=== PATIENT | male | born 1985 | race American Indian/Alaskan Native ===

== ENCOUNTER 2016-08-17 12:04 | Emergency (ER) | payer OTHER ==
--- NOTE | 2016-08-17 12:39 | Emergency Department Report ---
Entered by MARCELO LOWE, acting as scribe for BENY ODOM NP. Chief Complaint: Dizziness Stated Complaint: PASSING OUT Time Seen by Provider: 08/17/16 12:27 - HPI History of Present Illness: 31 y/o male presents via EMS c/o lightheadedness that began [place]. He notes he feels like he could have a seizure any minute. Sx include seeing blue spots, pt denies any incontinence. PMH- SZ PT not currently being treated for sz - ROS Review of Systems: +lightheadedness +seeing blue spots -incontinence - Exam Vital Signs: Vital Signs 08/17/16 12:29 Temperature 97.4 F L Pulse Rate 67 Respiratory 16 Rate Blood Pressure 127/78 O2 Sat by Pulse 98 Oximetry Physical Exam: PT is alert and appropriate GCS 15 steady gait MSE screening note: Focused history and physical exam performed. Due to findings the following was ordered: labs ED Disposition for MSE Condition: Stable This documentation as recorded by the scribe,MARCELO LOWE,accurately reflects the service I personally performed and the decisions made by ILENE sigala TRACY M , TELLER MANAGER.
[2016-08-17 13:06] LABS: Urine Drugs of Abuse Note Disclamer
[2016-08-17 13:10] LABS: Basophils % (Auto) 0.3 % (0.0-1.8); Eosinophils % (Auto) 0.2 % (0.0-4.3); Hematocrit 41.5 % (35.5-45.6); Hemoglobin 13.7 gm/dl (11.8-15.2); Mean Corpuscular HGB Conc 33 % (32-34); Mean Corpuscular Hemoglobin 33 pg (28-32); Mean Corpuscular Volume 100 fl (84-94); Platelet Count 166 K/mm3 (140-440); Red Blood Count 4.17 M/mm3 (3.65-5.03); Red Cell Distribution Width 14.2 % (13.2-15.2); White Blood Count 4.4 K/mm3 (4.5-11.0)
[2016-08-17 13:17] LABS: Anion Gap 36 mmol/L; BUN/Creatinine Ratio 16.25; Blood Urea Nitrogen 13 mg/dL (9-20); Calcium 8.7 mg/dL (8.4-10.2); Carbon Dioxide 17 mmol/L (22-30); Chloride 94.4 mmol/L (98-107); Glucose 59 mg/dL (75-100); Potassium 4.4 mmol/L (3.6-5.0); Sodium 143 mmol/L (137-145)
[2016-08-17 13:19] LABS: Bacteria,Urine 1+ /HPF (Negative); Bilirubin,Urine NEG (Negative); Blood,Urine SM (Negative); Ketones,Urine 80 mg/dL (Negative); Leukocyte Esterase,Urine NEG (Negative); Mucus,Urine 2+ /HPF; Nitrite,Urine NEG (Negative)
[2016-08-17] MEDS: NACL 0.9% 1000 ML 1,000 ML IV ONE ×2 (19:07→21:45)
--- NOTE | 2016-08-17 19:10 | Emergency Department Report ---
ED Dizziness HPI - General Chief Complaint: Dizziness Stated Complaint: PASSING OUT Time Seen by Provider: 08/17/16 12:27 Source: patient Mode of arrival: Ambulatory Limitations: No Limitations - History of Present Illness MD Complaint: dizziness, lightheadedness, near syncope -: Gradual Timing: gradual onset Description: lightheadedness History of Same: Yes History of Trauma: No Severity: moderate Improves With: remaining still, rehydration Worsens With: movement, position Associated Symptoms: weakness. denies: ataxia, chest pain, confusion, cough, diaphoresis, fever/chills, loss of appetite, malaise, seizure, shortness of breath, syncope - Related Data Previous Rx's Medication Instructions Recorded Last Taken Type Multivitamin [Multi Vitamin Daily] 1 each PO DAILY #30 tablet 07/22/13 Unknown Rx HYDROcodone/ACETAMINOPHEN [[place] 1 each PO Q6HR PRN #15 tablet 10/19/13 Unknown Rx 5/325 Tablet] Prednisone [Prednisone 10 mg 10 mg PO .TAPER #1 tab.ds.pk 10/19/13 Unknown Rx (6-Day Pack, 21 Tabs)] Sulfamethoxazole/Trimethoprim 1 each PO BID #20 tablet 10/19/13 Unknown Rx [Bactrim Ds] Folic Acid [Folvite] 1 mg PO QDAY #30 tablet 08/17/16 Unknown Rx Thiamine [Vitamin B-1] 100 mg PO QDAY #30 tablet 08/17/16 Unknown Rx chlordiazePOXIDE [Librium] 25 mg PO DAILY #40 capsule 08/17/16 Unknown Rx levETIRAcetam [Keppra TAB] 500 mg PO BID #60 tablet 08/17/16 Unknown Rx Allergies Allergy/AdvReac Type Severity Reaction Status Date / Time No Known Allergies Allergy Verified 08/17/16 12:36 ED Review of Systems ROS: Stated complaint: PASSING OUT Other details as noted in HPI Constitutional: denies: chills, fever Eyes: denies: eye pain, eye discharge, vision change ENT: denies: ear pain, throat pain Respiratory: denies: cough, shortness of breath, wheezing Cardiovascular: denies: chest pain, palpitations Endocrine: no symptoms reported Gastrointestinal: denies: abdominal pain, nausea, diarrhea Genitourinary: denies: urgency, dysuria Musculoskeletal: denies: back pain, joint swelling, arthralgia Skin: denies: rash, lesions Neurological: weakness. denies: headache, paresthesias Psychiatric: denies: anxiety, depression Hematological/Lymphatic: denies: easy bleeding, easy bruising ED Past Medical Hx - Past Medical History Hx Seizures: Yes - Surgical History Additional Surgical History: LEFT 5TH DIGIT - Social History Smoking Status: Current Every Day Smoker Substance Use Type: Alcohol, Marijuana - Medications Home Medications: Home Medications Medication Instructions Recorded Confirmed Last Taken Type Multivitamin [Multi Vitamin Daily] 1 each PO DAILY #30 tablet 07/22/13 Unknown Rx HYDROcodone/ACETAMINOPHEN [[place] 1 each PO Q6HR PRN #15 tablet 10/19/13 Unknown Rx 5/325 Tablet] Prednisone [Prednisone 10 mg 10 mg PO .TAPER #1 tab.ds.pk 10/19/13 Unknown Rx (6-Day Pack, 21 Tabs)] Sulfamethoxazole/Trimethoprim 1 each PO BID #20 tablet 10/19/13 Unknown Rx [Bactrim Ds] Folic Acid [Folvite] 1 mg PO QDAY #30 tablet 08/17/16 Unknown Rx Thiamine [Vitamin B-1] 100 mg PO QDAY #30 tablet 08/17/16 Unknown Rx chlordiazePOXIDE [Librium] 25 mg PO DAILY #40 capsule 08/17/16 Unknown Rx levETIRAcetam [Keppra TAB] 500 mg PO BID #60 tablet 08/17/16 Unknown Rx ED Physical Exam - General Limitations: No Limitations General appearance: alert, in no apparent distress - Head Head exam: Present: atraumatic, normocephalic - Eye Eye exam: Present: normal appearance - ENT ENT exam: Present: mucous membranes moist - Neck Neck exam: Present: normal inspection - Respiratory Respiratory exam: Present: normal lung sounds bilaterally. Absent: respiratory distress - Cardiovascular Cardiovascular Exam: Present: regular rate, normal rhythm. Absent: systolic murmur, diastolic murmur, rubs, gallop - GI/Abdominal GI/Abdominal exam: Present: soft, normal bowel sounds - Rectal Rectal exam: Present: deferred - Extremities Exam Extremities exam: Present: normal inspection - Back Exam Back exam: Present: normal inspection - Neurological Exam Neurological exam: Present: alert, oriented X3 - Psychiatric Psychiatric exam: Present: normal affect, normal mood - Skin Skin exam: Present: warm, dry, intact, normal color. Absent: rash ED Course Vital Signs 08/17/16 12:29 Temperature 97.4 F L Pulse Rate 67 Respiratory 16 Rate Blood Pressure 127/78 O2 Sat by Pulse 98 Oximetry ED Medical Decision Making - Lab Data Result diagrams: 08/17/16 12:44 08/17/16 12:44 - EKG Data -: EKG Interpreted by Me EKG shows normal: sinus rhythm Rate: normal - EKG Data When compared to previous EKG there are: no significant change Interpretation: no acute changes - Radiology Data Radiology results: image reviewed - Medical Decision Making Patient doing well, ivf given to the patient , ekg no acute changes , cxr negative, labs consistent with mild to moderate dehydration , with some hypoglycemia and ketones in the urine. Patient is eating in the ER, will continue to observe , likely discharge Critical care attestation.: If time is entered above; I have spent that time in minutes in the direct care of this critically ill patient, excluding procedure time. ED Disposition Clinical Impression: Dizziness, Dehydration Disposition: DISCHARGED TO HOME OR SELFCARE Is pt being admited?: No Does the pt Need Aspirin: No Condition: Good Instructions: Dehydration (ED), Lightheadedness (ED), Dizziness (ED) Prescriptions: chlordiazePOXIDE [Librium] 25 mg PO DAILY #40 capsule Folic Acid [Folvite] 1 mg PO QDAY #30 tablet levETIRAcetam [Keppra TAB] 500 mg PO BID #60 tablet Thiamine [Vitamin B-1] 100 mg PO QDAY #30 tablet Referrals: PRIMARY CARE, [Primary Care Provider] - 3-5 Days
[2016-08-17 19:26] LABS: Magnesium 1.6 mg/dL (1.7-2.3)
[2016-08-18 00:57] VITALS: BP 126/80
--- NOTE | 2016-08-18 08:11 | XRay Report ---
ROUTINE CHEST, TWO VIEWS: PA and lateral views demonstrate the heart and mediastinal contour to be of normal size and shape. The lungs are clear and fully expanded and the soft tissues and bony structures are normal. IMPRESSION: Normal study.
== END 2016-08-17 23:45 | disposition home or self-care (01) ==
LOC: ED 12:04
DX: R42 Dizziness and giddiness (principal); E86.0 Dehydration; R56.9 Unspecified convulsions; F17.200 Nicotine dependence, unspecified, uncomplicated; F12.10 Cannabis abuse, uncomplicated
CPT/HCPCS: 36415; 71020; 80048; 80307; 81001; 82550; 82962; 83735; 84484; 85025; 93005; 93010; 96360; 96361; 99284; J7030

== ENCOUNTER 2016-08-30 06:12 | Emergency (ER) | payer OTHER ==
[2016-08-30] MEDS ORDERED: NACL 0.9% 1000 ML 1,000 ML IV ONE (06:24)
--- NOTE | 2016-08-30 06:58 | Emergency Department Report ---
ED Altered Mental Status HPI - General Chief Complaint: Altered Mental Status Stated Complaint: OVERDOSE Time Seen by Provider: 08/30/16 06:24 Source: EMS Mode of arrival: Stretcher Limitations: Altered Mental Status - History of Present Illness MD Complaint: altered mental status, decreased responsiveness, intoxication -: Gradual Severity: moderate Associated Symptoms: denies: chest pain, cough, diaphoresis, fever/chills, headaches, malaise, nausea/vomiting, rash, seizure, shortness of breath, foul smelling urine, difficulty walking, diarrhea Treatments Prior to Arrival: IV fluid - Related Data Previous Rx's Medication Instructions Recorded Last Taken Type Cyclobenzaprine [Flexeril 10 MG 10 mg PO TID PRN #30 tablet 08/20/16 Unknown Rx TAB] Folic Acid [Folvite] 1 mg PO QDAY #30 tablet 08/20/16 Unknown Rx Thiamine [Vitamin B-1] 100 mg PO QDAY #30 tablet 08/20/16 Unknown Rx levETIRAcetam [Keppra TAB] 500 mg PO BID #60 tablet 08/20/16 Unknown Rx oxyCODONE /ACETAMINOPHEN [Percocet 1 tab PO Q6H PRN #12 tablet 08/20/16 Unknown Rx 5/325 mg] Allergies Allergy/AdvReac Type Severity Reaction Status Date / Time No Known Allergies Allergy Verified 08/30/16 06:19 ED Review of Systems ROS: Stated complaint: OVERDOSE Other details as noted in HPI Constitutional: denies: chills, fever Eyes: denies: eye pain, eye discharge, vision change ENT: denies: ear pain, throat pain Respiratory: denies: cough, shortness of breath, wheezing Cardiovascular: denies: chest pain, palpitations Endocrine: no symptoms reported Gastrointestinal: denies: abdominal pain, nausea, diarrhea Genitourinary: denies: urgency, dysuria Musculoskeletal: denies: back pain, joint swelling, arthralgia Skin: denies: rash, lesions Neurological: denies: headache, weakness, paresthesias Psychiatric: denies: anxiety, depression Hematological/Lymphatic: denies: easy bleeding, easy bruising ED Past Medical Hx - Past Medical History Previous Medical History?: Yes Hx Congestive Heart Failure: No Hx Diabetes: No Hx Seizures: Yes Hx Asthma: No Hx COPD: No Additional medical history: alcohol abuse - Surgical History Past Surgical History?: Yes Additional Surgical History: LEFT 5TH DIGIT - Social History Smoking Status: Smoker, Current Status Unknown Substance Use Type: Alcohol - Medications Home Medications: Home Medications Medication Instructions Recorded Confirmed Last Taken Type Cyclobenzaprine [Flexeril 10 MG 10 mg PO TID PRN #30 tablet 08/20/16 08/30/16 Unknown Rx TAB] Folic Acid [Folvite] 1 mg PO QDAY #30 tablet 08/20/16 08/30/16 Unknown Rx Thiamine [Vitamin B-1] 100 mg PO QDAY #30 tablet 08/20/16 08/30/16 Unknown Rx levETIRAcetam [Keppra TAB] 500 mg PO BID #60 tablet 08/20/16 08/30/16 Unknown Rx oxyCODONE /ACETAMINOPHEN [Percocet 1 tab PO Q6H PRN #12 tablet 08/20/16 Unknown Rx 5/325 mg] ED Physical Exam - General Limitations: Altered Mental Status General appearance: appears intoxicated, lethargic, obtunded - Head Head exam: Present: atraumatic, normocephalic - Eye Eye exam: Present: normal appearance, PERRL - ENT ENT exam: Present: normal exam - Neck Neck exam: Present: normal inspection, tenderness - Respiratory Respiratory exam: Present: normal lung sounds bilaterally - GI/Abdominal GI/Abdominal exam: Present: soft. Absent: distended, tenderness, guarding, rebound - Skin Skin exam: Present: warm ED Course Vital Signs 08/30/16 08/30/16 08/30/16 06:24 07:03 07:16 Temperature 97.4 F L Pulse Rate 94 H 95 H Respiratory 18 16 20 Rate Blood Pressure Blood Pressure 112/81 [Left] O2 Sat by Pulse 99 94 99 Oximetry 08/30/16 08/30/16 08/30/16 07:31 08:00 08:31 Temperature Pulse Rate 93 H 87 89 Respiratory 14 14 12 Rate Blood Pressure 112/81 Blood Pressure [Left] O2 Sat by Pulse Oximetry 08/30/16 08/30/16 09:01 09:31 Temperature Pulse Rate 91 H Respiratory 13 Rate Blood Pressure 130/94 130/94 Blood Pressure [Left] O2 Sat by Pulse 99 97 Oximetry - Lab Data Result diagrams: 08/30/16 06:29 08/30/16 06:29 Lab Results 08/30/16 08/30/16 08/30/16 Range/Units 06:29 06:29 07:20 WBC 3.5 L (4.5-11.0) K/mm3 RBC 3.31 L (3.65-5.03) M/mm3 Hgb 10.9 L (11.8-15.2) gm/dl Hct 32.4 L (35.5-45.6) % MCV 98 H (84-94) fl MCH 33 H (28-32) pg MCHC 34 (32-34) % RDW 14.0 (13.2-15.2) % Plt Count 309 (140-440) K/mm3 Add Manual Diff Complete Total Counted 100 Seg Neutrophils % [employer] Operator Seg Neuts % (Manual) 40.0 (40.0-70.0) % Band Neutrophils % 0 % Lymphocytes % (Manual) 51.0 H (13.4-35.0) % Reactive Lymphs % (Man) 0 % Monocytes % (Manual) 9.0 H (0.0-7.3) % Eosinophils % (Manual) 0 (0.0-4.3) % Basophils % (Manual) 0 (0.0-1.8) % Metamyelocytes % 0 % Myelocytes % 0 % Promyelocytes % 0 % Blast Cells % 0 % Nucleated RBC % Not Reportable Seg Neutrophils # Man 1.4 L (1.8-7.7) K/mm3 Band Neutrophils # 0.0 K/mm3 Lymphocytes # (Manual) 1.8 (1.2-5.4) K/mm3 Abs React Lymphs (Man) 0.0 K/mm3 Monocytes # (Manual) 0.3 (0.0-0.8) K/mm3 Eosinophils # (Manual) 0.0 (0.0-0.4) K/mm3 Basophils # (Manual) 0.0 (0.0-0.1) K/mm3 Metamyelocytes # 0.0 K/mm3 Myelocytes # 0.0 K/mm3 Promyelocytes # 0.0 K/mm3 Blast Cells # 0.0 K/mm3 WBC Morphology Not Reportable Hypersegmented Neuts Not Reportable Hyposegmented Neuts Not Reportable Hypogranular Neuts Not Reportable Smudge Cells Not Reportable Toxic Granulation Not Reportable Toxic Vacuolation Not Reportable Dohle Bodies Not Reportable Pelger-Huet Anomaly Not Reportable Rhys Rods Not Reportable Platelet Estimate Appears normal Clumped Platelets Not Reportable Plt Clumps, EDTA Not Reportable Large Platelets Not Reportable Giant Platelets Not Reportable Platelet Satelliting Not Reportable Plt Morphology Comment Not Reportable RBC Morphology Normal Dimorphic RBCs Not Reportable Polychromasia Not Reportable Hypochromasia Not Reportable Poikilocytosis Not Reportable Anisocytosis Not Reportable Microcytosis Not Reportable Macrocytosis Not Reportable Spherocytes Not Reportable Pappenheimer Bodies Not Reportable Sickle Cells Not Reportable Target Cells Not Reportable Tear Drop Cells Not Reportable Ovalocytes Not Reportable Helmet Cells Not Reportable [place] Bodies Not Reportable [place] Rings Not Reportable Evita Cells Not Reportable Bite Cells Not Reportable Crenated Cell Not Reportable Elliptocytes Not Reportable Acanthocytes (Spur) Not Reportable Rouleaux Not Reportable Hemoglobin C Crystals Not Reportable Schistocytes Not Reportable Malaria parasites Not Reportable Abad Bodies Not Reportable Hem Pathologist Commnt No Sodium 144 (137-145) mmol/L Potassium 3.8 (3.6-5.0) mmol/L Chloride 101.3 (98-107) mmol/L Carbon Dioxide 28 (22-30) mmol/L Anion Gap 19 mmol/L BUN 11 (9-20) mg/dL Creatinine 0.7 L (0.8-1.5) mg/dL Estimated GFR > 60 ml/min BUN/Creatinine Ratio 15.71 % Glucose 85 (75-100) mg/dL POC Glucose 76 (70-105) Lactic Acid (0.7-2.0) mmol/L Calcium 8.3 L (8.4-10.2) mg/dL Total Bilirubin 0.60 (0.1-1.2) mg/dL AST 30 (5-40) units/L ALT 28 (7-56) units/L Alkaline Phosphatase 57 (35-129) units/L Total Protein 6.3 (6.3-8.2) g/dL Albumin 3.9 (3.9-5) g/dL Albumin/Globulin Ratio 1.6 % Salicylates (2.8-20.0) mg/dL Acetaminophen (10.0-30.0) ug/mL Plasma/Serum Alcohol (0-0.07) gm% 0508/30/16 08/30/16 Range/Units 09:45 09:45 09:45 WBC (4.5-11.0) K/mm3 RBC (3.65-5.03) M/mm3 Hgb (11.8-15.2) gm/dl Hct (35.5-45.6) % MCV (84-94) fl MCH (28-32) pg MCHC (32-34) % RDW (13.2-15.2) % Plt Count (140-440) K/mm3 Add Manual Diff Total Counted Seg Neutrophils % Seg Neuts % (Manual) (40.0-70.0) % Band Neutrophils % % Lymphocytes % (Manual) (13.4-35.0) % Reactive Lymphs % (Man) % Monocytes % (Manual) (0.0-7.3) % Eosinophils % (Manual) (0.0-4.3) % Basophils % (Manual) (0.0-1.8) % Metamyelocytes % % Myelocytes % % Promyelocytes % % Blast Cells % % Nucleated RBC % Seg Neutrophils # Man (1.8-7.7) K/mm3 Band Neutrophils # K/mm3 Lymphocytes # (Manual) (1.2-5.4) K/mm3 Abs React Lymphs (Man) K/mm3 Monocytes # (Manual) (0.0-0.8) K/mm3 Eosinophils # (Manual) (0.0-0.4) K/mm3 Basophils # (Manual) (0.0-0.1) K/mm3 Metamyelocytes # K/mm3 Myelocytes # K/mm3 Promyelocytes # K/mm3 Blast Cells # K/mm3 WBC Morphology Hypersegmented Neuts Hyposegmented Neuts Hypogranular Neuts Smudge Cells Toxic Granulation Toxic Vacuolation Dohle Bodies Pelger-Huet Anomaly Rhys Rods Platelet Estimate Clumped Platelets Plt Clumps, EDTA Large Platelets Giant Platelets Platelet Satelliting Plt Morphology Comment RBC Morphology Dimorphic RBCs Polychromasia Hypochromasia Poikilocytosis Anisocytosis Microcytosis Macrocytosis Spherocytes Pappenheimer Bodies Sickle Cells Target Cells Tear Drop Cells Ovalocytes Helmet Cells [place] Bodies [place] Rings Evita Cells Bite Cells Crenated Cell Elliptocytes Acanthocytes (Spur) Rouleaux Hemoglobin C Crystals Schistocytes Malaria parasites Abad Bodies Hem Pathologist Commnt Sodium (137-145) mmol/L Potassium (3.6-5.0) mmol/L Chloride (98-107) mmol/L Carbon Dioxide (22-30) mmol/L Anion Gap mmol/L BUN (9-20) mg/dL Creatinine (0.8-1.5) mg/dL Estimated GFR ml/min BUN/Creatinine Ratio % Glucose (75-100) mg/dL POC Glucose (70-105) Lactic Acid 1.90 (0.7-2.0) mmol/L Calcium (8.4-10.2) mg/dL Total Bilirubin (0.1-1.2) mg/dL AST (5-40) units/L ALT (7-56) units/L Alkaline Phosphatase (35-129) units/L Total Protein (6.3-8.2) g/dL Albumin (3.9-5) g/dL Albumin/Globulin Ratio % Salicylates < 0.3 L (2.8-20.0) mg/dL Acetaminophen < 15.0 (10.0-30.0) ug/mL Plasma/Serum Alcohol (0-0.07) gm% 08/30/16 Range/Units 09:45 WBC (4.5-11.0) K/mm3 RBC (3.65-5.03) M/mm3 Hgb (11.8-15.2) gm/dl Hct (35.5-45.6) % MCV (84-94) fl MCH (28-32) pg MCHC (32-34) % RDW (13.2-15.2) % Plt Count (140-440) K/mm3 Add Manual Diff Total Counted Seg Neutrophils % Seg Neuts % (Manual) (40.0-70.0) % Band Neutrophils % % Lymphocytes % (Manual) (13.4-35.0) % Reactive Lymphs % (Man) % Monocytes % (Manual) (0.0-7.3) % Eosinophils % (Manual) (0.0-4.3) % Basophils % (Manual) (0.0-1.8) % Metamyelocytes % % Myelocytes % % Promyelocytes % % Blast Cells % % Nucleated RBC % Seg Neutrophils # Man (1.8-7.7) K/mm3 Band Neutrophils # K/mm3 Lymphocytes # (Manual) (1.2-5.4) K/mm3 Abs React Lymphs (Man) K/mm3 Monocytes # (Manual) (0.0-0.8) K/mm3 Eosinophils # (Manual) (0.0-0.4) K/mm3 Basophils # (Manual) (0.0-0.1) K/mm3 Metamyelocytes # K/mm3 Myelocytes # K/mm3 Promyelocytes # K/mm3 Blast Cells # K/mm3 WBC Morphology Hypersegmented Neuts Hyposegmented Neuts Hypogranular Neuts Smudge Cells Toxic Granulation Toxic Vacuolation Dohle Bodies Pelger-Huet Anomaly Rhys Rods Platelet Estimate Clumped Platelets Plt Clumps, EDTA Large Platelets Giant Platelets Platelet Satelliting Plt Morphology Comment RBC Morphology Dimorphic RBCs Polychromasia Hypochromasia Poikilocytosis Anisocytosis Microcytosis Macrocytosis Spherocytes Pappenheimer Bodies Sickle Cells Target Cells Tear Drop Cells Ovalocytes Helmet Cells [place] Bodies [place] Rings [place] Cells Bite Cells Crenated Cell Elliptocytes Acanthocytes (Spur) Rouleaux Hemoglobin C Crystals Schistocytes Malaria parasites Abad Bodies Hem Pathologist Commnt Sodium (137-145) mmol/L Potassium (3.6-5.0) mmol/L Chloride (98-107) mmol/L Carbon Dioxide (22-30) mmol/L Anion Gap mmol/L BUN (9-20) mg/dL Creatinine (0.8-1.5) mg/dL Estimated GFR ml/min BUN/Creatinine Ratio % Glucose (75-100) mg/dL POC Glucose (70-105) Lactic Acid (0.7-2.0) mmol/L Calcium (8.4-10.2) mg/dL Total Bilirubin (0.1-1.2) mg/dL AST (5-40) units/L ALT (7-56) units/L Alkaline Phosphatase (35-129) units/L Total Protein (6.3-8.2) g/dL Albumin (3.9-5) g/dL Albumin/Globulin Ratio % Salicylates (2.8-20.0) mg/dL Acetaminophen (10.0-30.0) ug/mL Plasma/Serum Alcohol 0.23 H (0-0.07) gm% Critical care attestation.: If time is entered above; I have spent that time in minutes in the direct care of this critically ill patient, excluding procedure time. ED Disposition Disposition: DISCHARGED TO HOME OR SELFCARE Is pt being admited?: No Does the pt Need Aspirin: No Condition: Good Instructions: Alcohol Intoxication (ED), Abuse of Alcohol (ED) Referrals: PRIMARY CARE, [Primary Care Provider] - 3-5 Days Time of Disposition: 15:33
[2016-08-30 07:13] LABS: Hematocrit 32.4 % (35.5-45.6); Hemoglobin 10.9 gm/dl (11.8-15.2); Mean Corpuscular HGB Conc 34 % (32-34); Mean Corpuscular Hemoglobin 33 pg (28-32); Mean Corpuscular Volume 98 fl (84-94); Platelet Count 309 K/mm3 (140-440); Red Blood Count 3.31 M/mm3 (3.65-5.03); White Blood Count 3.5 K/mm3 (4.5-11.0)
[2016-08-30 07:24] LABS: Alanine Aminotransferase 28 units/L (7-56); Albumin 3.9 g/dL (3.9-5); Albumin/Globulin Ratio 1.6 %; Alkaline Phosphatase 57 units/L (35-129); Anion Gap 19 mmol/L; BUN/Creatinine Ratio 15.71; Blood Urea Nitrogen 11 mg/dL (9-20); Calcium 8.3 mg/dL (8.4-10.2); Carbon Dioxide 28 mmol/L (22-30); Chloride 101.3 mmol/L (98-107); Glucose 85 mg/dL (75-100); Potassium 3.8 mmol/L (3.6-5.0); Sodium 144 mmol/L (137-145); Total Protein 6.3 g/dL (6.3-8.2)
--- NOTE | 2016-08-30 07:41 | Cat Scan Report ---
FINAL REPORT EXAM: CT HEAD/BRAIN WO CON HISTORY: Altered Mental Status TECHNIQUE: CT of the head was performed. No intravenous contrast was administered. PRIORS: 08/18/2016 FINDINGS: There is no evidence of intracranial hemorrhage. There is no edema, mass effect or midline shift. There are no abnormal extra-axial fluid collections. The ventricles are appropriate for brain volume. There is no skull fracture seen. The visualized aspects of the sinuses are clear. Tiny density in the left parietal scalp is unchanged. This may be a foreign body or may be a calcification. IMPRESSION: There is no acute intracranial abnormality identified.
[2016-08-30 09:32] LABS: Basophils % (Manual) 0 % (0.0-1.8); Blastocytes % (Manual) 0 %; Diff Status Complete; Eosinophils % (Manual) 0 % (0.0-4.3); RBC Morphology Normal
--- NOTE | 2016-08-30 14:41 | Admit Criteria Form ---
Admission Criteria Documentation: DRUG INGESTION OR OVERDOSE Clinical Indications for Admission to Inpatient Care ( Place 'X' for any and all applicable criteria): Admission is indicated for severe toxicity as indicated by ANY ONE of the following(1)(2)(3)(4)(5)(6): [ X]I. Inpatient admission required rather than observation care (Also use Drug Ingestion or Overdose: Observation Care guideline as appropriate) because of ANY ONE of the following: [X ]a) Altered mental status that is severe or persistent [ ]b) Clinical finding (eg, metabolic acidosis, hypoglycemia, bradycardia) that is severe or persistent [ ]c) Toxic drug level that is persistent [ ]d) Psychiatric risk status not acceptable for outpatient management [ ]e) Continuous intravenous infusion of anticoagulation, platelet inhibitor, vasoactive, or antiarrhythmic medication (15)(16) [ ]f) Other condition, treatment or monitoring requiring inpatient admission [ ]II. Respiratory abnormalities [ ]III. Specific finding indicating severe and likely prolonged drug toxicity [ ]IV. Hemodynamic instability [ ]V. Dangerous arrhythmia [ ]. Hypertension requiring inpatient treatment Extended stay beyond goal length of stay may be needed for (4): [ ]a) Neurologic or respiratory compromise [ ]b) Hemodynamic instability [ ]c) Persistent toxic drug levels (25) [ ]d) Severe drug toxicities or complications [ ]e) Ongoing antidote treatment (eg, acetaminophen overdose)(5) [ ]f) Older patients(65 years or older) The original [facility] content created by [employer] has been revised. The portions of the content which have been revised are identified through the use of italic text or in bold, and [facility] has neither reviewed nor approved the modified material. All other unmodified content is copyright [facility] [employer]. Please see references footnoted in the original [facility] [employer] edition 2016 Admission Criteria Met: Yes
[2016-08-30 17:07] VITALS: BP 124/68
== END 2016-08-30 19:05 | disposition home or self-care (01) ==
LOC: ED 06:12
DX: R41.82 Altered mental status, unspecified (principal)
CPT/HCPCS: 36415; 70450; 80053; 82140; 82962; 85007; 85025; 93005; 93010; 96360; 96361; 99285; G0480; J7030; 80320

== ENCOUNTER 2016-09-21 01:24 | Inpatient (IN) | payer OTHER ==
--- NOTE | 2016-09-21 09:33 | Emergency Department Report ---
ED General Adult HPI - General Chief complaint: Alcohol Stated complaint: ETOH/POSS SEIZURE Time Seen by Provider: 09/21/16 09:32 Source: EMS Mode of arrival: Ambulatory Limitations: No Limitations - History of Present Illness Initial comments: According to the EMS report, the patient was frankly intoxicated likely secondary to alcohol. He had lead down in a ditch because he "wanted to sleep" . He made mention of a seizure to the director of investigations. However EMS did not know the presence of a post ictal state. The patient was transported to this facility for further evaluation. He is awake and appears to be frankly intoxicated. However, he does understand the context of his visit and asked oriented. He states that he has fallen several times recently onto his knee. He complains of some discomfort in the same knee which is the left knee as well as the right elbow from this fall into a ditch last night. He denies any neck pain or head injury. The patient's mother presents to the emergency department. Apparently she is a middleware architect. She is aware of the patient's history of alcohol abuse. Apparently he was here on August 30 of the current year under similar circumstances and released. She requests a psychiatric evaluation because she believes the patient has a "dual diagnosis". I certainly think that is not unlikely and a reasonable request. She also states that the patient has made some comments about taking an overdose of his Keppra. However he denied suicidality or taking an overdose on my interview. He is not currently taking any psychiatric medication. He has previously been to [facility] but was not admitted with out a "$3000 deposit" per his mother. I advised mother that we will have to obtain the patient's permission to specifically discuss his medical/psychiatric findings. He stated that she had to go to the school and requested that we call her back when we are done evaluating him. -: During the night Location: left (knee), right (elbow) Radiation: non-radiation Severity scale (0 -10): 7 Quality: aching Consistency: intermittent Improves with: none Worsens with: none Associated Symptoms: denies other symptoms Treatments Prior to Arrival: none - Related Data Previous Rx's Medication Instructions Recorded Last Taken Type Cyclobenzaprine [Flexeril 10 MG 10 mg PO TID PRN #30 tablet 08/20/16 Unknown Rx TAB] Folic Acid [Folvite] 1 mg PO QDAY #30 tablet 08/20/16 Unknown Rx Thiamine [Vitamin B-1] 100 mg PO QDAY #30 tablet 08/20/16 Unknown Rx levETIRAcetam [Keppra TAB] 500 mg PO BID #60 tablet 08/20/16 Unknown Rx oxyCODONE /ACETAMINOPHEN [Percocet 1 tab PO Q6H PRN #12 tablet 08/20/16 Unknown Rx 5/325 mg] Allergies Allergy/AdvReac Type Severity Reaction Status Date / Time No Known Allergies Allergy Verified 08/30/16 06:19 ED Review of Systems ROS: Stated complaint: ETOH/POSS SEIZURE Other details as noted in HPI Constitutional: denies: chills, fever Eyes: denies: eye pain, eye discharge, vision change ENT: denies: ear pain, throat pain Respiratory: denies: cough, shortness of breath, wheezing Cardiovascular: denies: chest pain, palpitations Endocrine: no symptoms reported Gastrointestinal: denies: abdominal pain, nausea, diarrhea Genitourinary: denies: urgency, dysuria Musculoskeletal: as per HPI, other. denies: back pain, joint swelling, arthralgia Skin: denies: rash, lesions Neurological: denies: headache, weakness, paresthesias Psychiatric: denies: anxiety, depression Hematological/Lymphatic: denies: easy bleeding, easy bruising ED Past Medical Hx - Past Medical History Hx Congestive Heart Failure: No Hx Diabetes: No Hx Seizures: Yes Hx Asthma: No Hx COPD: No Additional medical history: alcohol abuse - Surgical History Additional Surgical History: LEFT 5TH DIGIT - Social History Smoking Status: Current Every Day Smoker Substance Use Type: Alcohol - Medications Home Medications: Home Medications Medication Instructions Recorded Confirmed Last Taken Type Cyclobenzaprine [Flexeril 10 MG 10 mg PO TID PRN #30 tablet 08/20/16 08/30/16 Unknown Rx TAB] Folic Acid [Folvite] 1 mg PO QDAY #30 tablet 08/20/16 08/30/16 Unknown Rx Thiamine [Vitamin B-1] 100 mg PO QDAY #30 tablet 08/20/16 08/30/16 Unknown Rx levETIRAcetam [Keppra TAB] 500 mg PO BID #60 tablet 08/20/16 08/30/16 Unknown Rx oxyCODONE /ACETAMINOPHEN [Percocet 1 tab PO Q6H PRN #12 tablet 08/20/16 Unknown Rx 5/325 mg] ED Physical Exam - General Limitations: Other (strong odor of alcohol and behavior consistent with intoxication) General appearance: in no apparent distress, lethargic - Head Head exam: Present: atraumatic, normocephalic - Eye Eye exam: Present: normal appearance, PERRL, EOMI. Absent: scleral icterus - ENT ENT exam: Present: mucous membranes moist. Absent: normal exam - Neck Neck exam: Present: normal inspection. Absent: tenderness, meningismus - Respiratory Respiratory exam: Present: normal lung sounds bilaterally. Absent: respiratory distress - Cardiovascular Cardiovascular Exam: Present: regular rate, normal rhythm. Absent: systolic murmur, diastolic murmur, rubs, gallop - GI/Abdominal GI/Abdominal exam: Present: soft, normal bowel sounds. Absent: distended, tenderness, guarding, rebound, rigid - Rectal Rectal exam: Present: deferred - Extremities Exam Extremities exam: Present: normal inspection, other (abrasion right elbow and left knee. Old injuries of the left knee as well.) - Back Exam Back exam: Present: normal inspection, full ROM. Absent: CVA tenderness (R), CVA tenderness (L), muscle spasm, paraspinal tenderness, vertebral tenderness - Neurological Exam Neurological exam: Present: oriented X3, CN II-XII intact, other (patient was noted to ambulate without difficulty. I encouraged him back into his guerney). Absent: motor sensory deficit - Psychiatric Psychiatric exam: Present: normal affect, normal mood - Skin Skin exam: Present: warm, dry, intact, normal color. Absent: rash ED Course Vital Signs 09/21/16 09/21/16 09/21/16 01:33 07:18 09:32 Temperature 98.5 F 98 F 97.8 F Pulse Rate 100 H 100 H 62 Respiratory 18 18 16 Rate Blood Pressure 143/98 Blood Pressure 141/97 [Left] Blood Pressure 160/98 [Right] O2 Sat by Pulse 97 98 100 Oximetry 09/21/16 09/21/16 11:46 13:30 Temperature 97.7 F Pulse Rate 60 76 Respiratory 16 16 Rate Blood Pressure Blood Pressure 139/90 129/96 [Left] Blood Pressure [Right] O2 Sat by Pulse 100 100 Oximetry - Reevaluation(s) Reevaluation #1: Stressed with mental health counselor. Discussed with patient. He is still quite intoxicated. His alcohol level was quite high and certainly will be for some time. He was hypernatremic and ketotic with an increased anion gap. He did have a syncopal episode. I think he has recent enough to be admitted medically. He states he will cooperate with a detox program. 09/21/16 14:54 Reevaluation #2: I'm going to complete the patient's medical database with a chest x-ray EKG and CT the head. Dr. Mccarty will be notified of the pending tests and agreed to admit to the hospitalist service. 09/21/16 15:00 Reevaluation #3: Discussed with Dr. Mccarty 09/21/16 15:07 ED Medical Decision Making - Lab Data Result diagrams: 09/21/16 09:45 09/21/16 09:45 Laboratory Results - last 24 hr 09/21/16 09/21/16 09/21/16 09:45 09:45 09:45 WBC 6.8 RBC 4.06 Hgb 13.1 Hct 40.2 MCV 99 H MCH 32 MCHC 33 RDW 13.8 Plt Count 223 Lymph % (Auto) 44.5 H Bucks % (Auto) 5.3 Eos % (Auto) 0.6 Baso % (Auto) 0.2 Lymph # 3.0 Bucks # 0.4 Eos # 0.0 Baso # 0.0 Seg Neutrophils % 49.4 Seg Neutrophils # 3.4 PT 13.0 INR 0.99 APTT 29.5 Sodium 147 H Carbon Dioxide 26 BUN 10 Creatinine 0.5 L Estimated GFR > 60 BUN/Creatinine Ratio 20.00 Glucose 99 Calcium 8.0 L Magnesium 2.00 Total Bilirubin Direct Bilirubin Indirect Bilirubin AST ALT Alkaline Phosphatase Total Protein Albumin Albumin/Globulin Ratio 09/21/16 09:45 WBC RBC Hgb Hct MCV MCH MCHC RDW Plt Count Lymph % (Auto) Bucks % (Auto) Eos % (Auto) Baso % (Auto) Lymph # Bucks # Eos # Baso # Seg Neutrophils % Seg Neutrophils # PT INR APTT Sodium Carbon Dioxide BUN Creatinine Estimated GFR BUN/Creatinine Ratio Glucose Calcium Magnesium Total Bilirubin 0.50 Direct Bilirubin < 0.2 Indirect Bilirubin 0.3 AST 28 ALT 18 Alkaline Phosphatase 65 Total Protein 6.9 Albumin 4.3 Albumin/Globulin Ratio 1.7 K KNA 147 K 3.8 CL 105.1 AG 20 Laboratory Results - last 24 hr 09/21/16 09/21/16 09/21/16 09:45 09:45 09:45 WBC 6.8 RBC 4.06 Hgb 13.1 Hct 40.2 MCV 99 H MCH 32 MCHC 33 RDW 13.8 Plt Count 223 Lymph % (Auto) 44.5 H [place] % (Auto) 5.3 Eos % (Auto) 0.6 Baso % (Auto) 0.2 Lymph # 3.0 Bucks # 0.4 Eos # 0.0 Baso # 0.0 Seg Neutrophils % 49.4 Seg Neutrophils # 3.4 PT 13.0 INR 0.99 APTT 29.5 Sodium 147 H Carbon Dioxide 26 BUN 10 Creatinine 0.5 L Estimated GFR > 60 BUN/Creatinine Ratio 20.00 Glucose 99 Calcium 8.0 L Magnesium 2.00 Total Bilirubin Direct Bilirubin Indirect Bilirubin AST ALT Alkaline Phosphatase Total Protein Albumin Albumin/Globulin Ratio Urine Color Urine Turbidity Urine pH Ur Specific [place] Urine Protein Urine Glucose (UA) Urine Ketones Urine Blood Urine Nitrite Urine Bilirubin Urine Urobilinogen Ur Leukocyte Esterase Urine WBC (Auto) Urine RBC (Auto) U Epithel Cells (Auto) Urine Mucus 09/21/16 09/21/16 09:45 11:54 WBC RBC Hgb Hct MCV MCH MCHC RDW Plt Count Lymph % (Auto) [place] % (Auto) Eos % (Auto) Baso % (Auto) Lymph # Bucks # Eos # Baso # Seg Neutrophils % Seg Neutrophils # PT INR APTT Sodium Carbon Dioxide BUN Creatinine Estimated GFR BUN/Creatinine Ratio Glucose Calcium Magnesium Total Bilirubin 0.50 Direct Bilirubin < 0.2 Indirect Bilirubin 0.3 AST 28 ALT 18 Alkaline Phosphatase 65 Total Protein 6.9 Albumin 4.3 Albumin/Globulin Ratio 1.7 Urine Color Straw Urine Turbidity Clear Urine pH 6.0 Ur Specific [place] 1.010 Urine Protein <15 mg/dl Urine Glucose (UA) Neg Urine Ketones Neg Urine Blood Neg Urine Nitrite Neg Urine Bilirubin Neg Urine Urobilinogen < 2.0 Ur Leukocyte Esterase Neg Urine WBC (Auto) 1.0 Urine RBC (Auto) 2.0 U Epithel Cells (Auto) < 1.0 Urine Mucus Few - Radiology Data Radiology results: report reviewed Critical care attestation.: If time is entered above; I have spent that time in minutes in the direct care of this critically ill patient, excluding procedure time. ED Disposition Clinical Impression: Alcoholic ketoacidosis, Hypernatremia, Syncope and collapse Alcohol intoxication Qualifiers: Complication of substance-induced condition: uncomplicated Qualified Code(s): F10.920 - Alcohol use, unspecified with intoxication, uncomplicated Disposition: OP ADMITTED IP TO THIS HOSP Is pt being admited?: Yes Does the pt Need Aspirin: No Condition: Stable Instructions: Syncope (ED) Referrals: PRIMARY CARE,MD [Primary Care Provider] - 3-5 Days
[2016-09-21 10:06] LABS: Basophils % (Auto) 0.2 % (0.0-1.8); Eosinophils % (Auto) 0.6 % (0.0-4.3); Hematocrit 40.2 % (35.5-45.6); Hemoglobin 13.1 gm/dl (11.8-15.2); Mean Corpuscular HGB Conc 33 % (32-34); Mean Corpuscular Hemoglobin 32 pg (28-32); Mean Corpuscular Volume 99 fl (84-94); Platelet Count 223 K/mm3 (140-440); Red Blood Count 4.06 M/mm3 (3.65-5.03); Red Cell Distribution Width 13.8 % (13.2-15.2); White Blood Count 6.8 K/mm3 (4.5-11.0)
[2016-09-21 10:17] LABS: Anion Gap 20 mmol/L; Blood Urea Nitrogen 10 mg/dL (9-20); Carbon Dioxide 26 mmol/L (22-30); Chloride 105.1 mmol/L (98-107); Glucose 99 mg/dL (75-100); Potassium 3.8 mmol/L (3.6-5.0); Sodium 147 mmol/L (137-145)
[2016-09-21 10:23] LABS: INR 0.99 (0.87-1.13)
[2016-09-21 10:24] LABS: Partial Thromboplastin Time 29.5 Sec. (24.2-36.6)
[2016-09-21 10:26] LABS: Alanine Aminotransferase 18 units/L (7-56); Albumin 4.3 g/dL (3.9-5); Albumin/Globulin Ratio 1.7 %; Alkaline Phosphatase 65 units/L (35-129); Total Protein 6.9 g/dL (6.3-8.2)
[2016-09-21 10:28] LABS: Bilirubin,Direct < 0.2 mg/dL (0-0.2); Bilirubin,Indirect 0.3 mg/dL
[2016-09-21 11:57] LABS: Urine Drugs of Abuse Note Disclamer
[2016-09-21] MEDS ORDERED: VITAMIN B-1 100 MG, FOLVITE 1 MG, INFUVITE 10 ML in NACL 0.9% 1000 ML 1,000 ML IV ONE (12:11)
[2016-09-21 12:12] LABS: Bilirubin,Urine NEG (Negative); Blood,Urine NEG (Negative); Ketones,Urine NEG (Negative); Leukocyte Esterase,Urine NEG (Negative); Mucus,Urine FEW /HPF; Nitrite,Urine NEG (Negative); Protein,Urine <15 mg/dL mg/dL (Negative); Urobilinogen,Urine < 2.0 mg/dL (<2.0)
--- NOTE | 2016-09-21 13:19 | XRay Report ---
LEFT KNEE, 2 views: History: Left knee pain. The bony architecture is intact without evidence of fracture or dislocation. No significant soft tissue abnormality is seen. IMPRESSION: Normal left knee.
--- NOTE | 2016-09-21 13:25 | XRay Report ---
Right elbow 2 views: History: Fall, pain. Findings: No evidence of joint effusion. Articular surfaces appears unremarkable. There appears to be large bony density posterior superior aspect of the olecranon process of ulna. This may be an old fracture of the ulna or ossification secondary to old injury. Impression: Findings as detailed above. Clinical correlation advised.
[2016-09-21] MEDS ORDERED: PROTONIX IV ONE (14:58)
--- NOTE | 2016-09-21 15:49 | Cat Scan Report ---
CT scan of head without contrast: History: AMS. Findings: Ventricles are normal in size and midline in location. Focal area of low attenuation measuring 4 mm in diameter left basal ganglia suggestive of chronic lacunar infarct. No acute ischemia, hemorrhage or mass. No extra-axial fluid collection. Normal brainstem and cerebellum. Normal sinuses and mastoid cells. Impression: No acute intracranial abnormality.
[2016-09-21] MEDS ORDERED: HALDOL IV PRN (17:19)
[2016-09-21] MEDS: HABITROL TD SCH (17:55)
[2016-09-21] MEDS: TYLENOL PO PRN (17:55)
--- NOTE | 2016-09-21 18:16 | History and Physical Report ---
History of Present Illness Date of examination: 09/21/16 Date of admission: 09/21/16 15:24 Chief complaint: Alcohol withdrawal History of present illness: Patient came in to Ed for ETOH intoxication. Patient calm, alert and oriented to person,place and time at present time. patient reported that he drinks a gallon of liquor every other day. his last drink was last night (09/20/2016). He stated that has fallen multiple times recently onto his knee. Patient reported also left knee and right elbow pain post fall into ditch yesterday. the abrupt onset of left keen and elbow pain, which he described as dull and aching in character. the character pain just localized at left knee and right elbow. The pain is relatively constant throughout the day, but does vary in severity He stated that his pain get worst with moving. Patient stated that he had an episode of seizure, but he does not know for how long the seizure lasted. Patient denies head injury, neck pain or headache at present time. Patient is motivated to stop drinking alcohol. Past History Past Medical History: seizures, other (Alcohol withdrwal) Past Surgical History: No surgical history Social history: alcohol abuse Family history: CAD, hypertension Medications and Allergies Allergies Allergy/AdvReac Type Severity Reaction Status Date / Time No Known Allergies Allergy Verified 08/30/16 06:19 Home Medications Medication Instructions Recorded Confirmed Last Taken Type Folic Acid [Folvite] 1 mg PO QDAY #30 tablet 08/20/16 09/21/16 09/21/16 Rx Thiamine [Vitamin B-1] 100 mg PO QDAY #30 tablet 08/20/16 09/21/16 09/21/16 Rx levETIRAcetam [Keppra TAB] 500 mg PO BID #60 tablet 08/20/16 09/21/16 09/21/16 Rx Active Meds: Active Medications Acetaminophen (Tylenol) 650 mg PO Q6H PRN PRN Reason: Pain, Mild (1-3) Last Admin: 09/21/16 17:55 Dose: 650 mg Chlordiazepoxide HCl (Librium) 50 mg PO Q1H PRN PRN Reason: CIWA-Ar 8-15 Enoxaparin Sodium (Lovenox) 40 mg SUB-Q QDAY@2200 COLBY Haloperidol Lactate (Haldol) 5 mg IV Q1H PRN PRN Reason: Unrespon. to mult. doses BZD's Thiamine HCl 100 mg/ Folic Acid 1 mg/ Multivitamins/Minerals 10 ml/ Sodium Chloride 1,011.2 mls @ 250 mls/hr IV ONCE ONE Stop: 09/21/16 21:23 Lorazepam (Ativan) 2 mg PO Q1H PRN PRN Reason: CIWA-Ar 8-15 Nicotine (Habitrol) 21 mg TD Q24H COLBY Last Admin: 09/21/16 17:55 Dose: 21 mg Review of Systems Constitutional: no weight loss, no weight gain, no fever, no chills, no sweats, no night sweats, no malaise Ears, nose, mouth and throat: no ear pain, no tinnitis, no nose pain, no nasal congestion, no nasal discharge Cardiovascular: no chest pain, no palpitations, no rapid/irregular heart beat, no syncope, no lightheadedness Respiratory: no cough, no cough with sputum, no excessive sputum Gastrointestinal: no abdominal pain, no nausea, no vomiting, no diarrhea Genitourinary Male: no dysuria, no hematuria, no flank pain, no discharge, no urinary frequency, no urinary hesitancy Musculoskeletal: other (left knee and right elbow) Integumentary: no rash, no sores Neurological: seizures, no head injury, no paralysis, no weakness, no parathesias, no tingling Psychiatric: no anxiety, no memory loss, no change in sleep habits Endocrine: no cold intolerance, no heat intolerance, no polyphagia, no excessive thirst Hematologic/Lymphatic: no easy bruising, no easy bleeding Allergic/Immunologic: no urticaria, no allergic rhinitis Exam - Constitutional Vitals: Temp Pulse Resp BP Pulse Ox 97.8 F 79 16 138/91 100 09/21/16 15:39 09/21/16 15:39 09/21/16 15:39 09/21/16 15:39 09/21/16 15:39 General appearance: Present: no acute distress, well-nourished - EENT Eyes: Present: PERRL ENT: hearing intact, clear oral mucosa - Neck Neck: Present: supple, normal ROM - Respiratory Respiratory effort: normal - Cardiovascular Heart Sounds: Present: S1 & S2. Absent: rub, click - Extremities Extremities: pulses symmetrical, No edema - Abdominal General gastrointestinal: Absent: soft, non-tender Male genitourinary: Present: deferred - Rectal Rectal Exam: deferred - Integumentary Integumentary: Present: clear, warm, dry - Musculoskeletal Musculoskeletal: strength equal bilaterally - Psychiatric Psychiatric: appropriate mood/affect - Neurologic Neurologic: CNII-XII intact, moves all extremities Results - Labs CBC & Chem 7: 09/21/16 09:45 09/21/16 09:45 Labs: Laboratory Last Values WBC 6.8 K/mm3 (4.5-11.0) 09/21/16 09:45 RBC 4.06 M/mm3 (3.65-5.03) 09/21/16 09:45 Hgb 13.1 gm/dl (11.8-15.2) 09/21/16 09:45 Hct 40.2 % (35.5-45.6) 09/21/16 09:45 MCV 99 fl (84-94) H 09/21/16 09:45 MCH 32 pg (28-32) 09/21/16 09:45 MCHC 33 % (32-34) 09/21/16 09:45 RDW 13.8 % (13.2-15.2) 09/21/16 09:45 Plt Count 223 K/mm3 (140-440) 09/21/16 09:45 Lymph % (Auto) 44.5 % (13.4-35.0) H 09/21/16 09:45 Stevens % (Auto) 5.3 % (0.0-7.3) 09/21/16 09:45 Eos % (Auto) 0.6 % (0.0-4.3) 09/21/16 09:45 Baso % (Auto) 0.2 % (0.0-1.8) 09/21/16 09:45 Lymph # 3.0 K/mm3 (1.2-5.4) 09/21/16 09:45 Stevens # 0.4 K/mm3 (0.0-0.8) 09/21/16 09:45 Eos # 0.0 K/mm3 (0.0-0.4) 09/21/16 09:45 Baso # 0.0 K/mm3 (0.0-0.1) 09/21/16 09:45 Seg Neutrophils % 49.4 % (40.0-70.0) 09/21/16 09:45 Seg Neutrophils # 3.4 K/mm3 (1.8-7.7) 09/21/16 09:45 PT 13.0 Sec. (12.2-14.9) 09/21/16 09:45 INR 0.99 (0.87-1.13) 09/21/16 09:45 APTT 29.5 Sec. (24.2-36.6) 09/21/16 09:45 Sodium 147 mmol/L (137-145) H 09/21/16 09:45 Carbon Dioxide 26 mmol/L (22-30) 09/21/16 09:45 BUN 10 mg/dL (9-20) 09/21/16 09:45 Creatinine 0.5 mg/dL (0.8-1.5) L 09/21/16 09:45 Estimated GFR > 60 ml/min 09/21/16 09:45 BUN/Creatinine Ratio 20.00 % 09/21/16 09:45 Glucose 99 mg/dL (75-100) 09/21/16 09:45 Calcium 8.0 mg/dL (8.4-10.2) L 09/21/16 09:45 Magnesium 2.00 mg/dL (1.7-2.3) 09/21/16 09:45 Total Bilirubin 0.50 mg/dL (0.1-1.2) 09/21/16 09:45 Direct Bilirubin < 0.2 mg/dL (0-0.2) 09/21/16 09:45 Indirect Bilirubin 0.3 mg/dL 09/21/16 09:45 AST 28 units/L (5-40) 09/21/16 09:45 ALT 18 units/L (7-56) 09/21/16 09:45 Alkaline Phosphatase 65 units/L (35-129) 09/21/16 09:45 Total Protein 6.9 g/dL (6.3-8.2) 09/21/16 09:45 Albumin 4.3 g/dL (3.9-5) 09/21/16 09:45 Albumin/Globulin Ratio 1.7 % 09/21/16 09:45 Urine Color Straw (Yellow) 09/21/16 11:54 Urine Turbidity Clear (Clear) 09/21/16 11:54 Urine pH 6.0 (5.0-7.0) 09/21/16 11:54 Ur Specific [place] 1.010 (1.003-1.030) 09/21/16 11:54 Urine Protein <15 mg/dl mg/dL (Negative) 09/21/16 11:54 Urine Glucose (UA) Neg mg/dL (Negative) 09/21/16 11:54 Urine Ketones Neg mg/dL (Negative) 09/21/16 11:54 Urine Blood Neg (Negative) 09/21/16 11:54 Urine Nitrite Neg (Negative) 09/21/16 11:54 Urine Bilirubin Neg (Negative) 09/21/16 11:54 Urine Urobilinogen < 2.0 mg/dL (<2.0) 09/21/16 11:54 Ur Leukocyte Esterase Neg (Negative) 09/21/16 11:54 Urine WBC (Auto) 1.0 /HPF (0.0-6.0) 09/21/16 11:54 Urine RBC (Auto) 2.0 /HPF (0.0-6.0) 09/21/16 11:54 U Epithel Cells (Auto) < 1.0 /HPF (0-13.0) 09/21/16 11:54 Urine Mucus Few /HPF 09/21/16 11:54 Urine Opiates Screen Presumptive negative 09/21/16 11:54 Urine Methadone Screen Presumptive negative 09/21/16 11:54 Ur Barbiturates Screen Presumptive negative 09/21/16 11:54 Ur Phencyclidine Scrn Presumptive negative 09/21/16 11:54 Ur Amphetamines Screen Presumptive negative 09/21/16 11:54 U Benzodiazepines Scrn Presumptive positive 09/21/16 11:54 Urine Cocaine Screen Presumptive negative 09/21/16 11:54 U Marijuana (THC) Screen Presumptive negative 09/21/16 11:54 Drugs of Abuse Note Disclamer 09/21/16 11:54 Plasma/Serum Alcohol 0.45 gm% (0-0.07) H 09/21/16 09:45 Assessment and Plan Assessment and plan: ASSESSMENT/PLAN 1. Alcohol Intoxication Alcohol level was 0.45 in the ED will put him on CIWA protocol On banana bag Alcohol counseling given 2. Left Knee and right elbow pain Knee and elbow X-ray unremarkable pain controlled with Flexerile and Tylenol 3. Seizure CT of the head, no acute intracranial abnormality Restart his keppra Hypernatremia: - Will give him fluid DVT prophylaxis Lovenox Disposition - admit to med surg floor Advance Directives: Yes (Full code) VTE prophylaxis?: Chemical Plan of care discussed with patient/family: Yes
[2016-09-21 19:30] LABS: Alanine Aminotransferase 17 units/L (7-56); Albumin 3.8 g/dL (3.9-5); Albumin/Globulin Ratio 1.5 %; Alkaline Phosphatase 70 units/L (35-129); Total Protein 6.3 g/dL (6.3-8.2)
[2016-09-21 19:32] LABS: Bilirubin,Direct < 0.2 mg/dL (0-0.2); Bilirubin,Indirect 0.2 mg/dL
[2016-09-21] MEDS: ATIVAN PO PRN (21:49)
[2016-09-21] MEDS: LOVENOX SUB-Q SCH (21:52)
[2016-09-21] MEDS: KEPPRA PO SCH (22:14)
[2016-09-21] MEDS: FLEXERIL PO PRN (22:45)
[2016-09-22] MEDS: TYLENOL PO PRN (05:39)
[2016-09-22] MEDS: ATIVAN PO PRN ×2 (05:41→22:36)
--- NOTE | 2016-09-22 07:42 | XRay Report ---
AP CHEST: HISTORY: Hypertension AP view of the chest demonstrates a normal mediastinal and cardiac contour with clear lungs and normal bony and soft tissue structures. IMPRESSION: Unremarkable AP chest. No significant change since 08/17/16.
--- NOTE | 2016-09-22 08:25 | Admit Criteria Form ---
Admission Criteria Documentation: ALCOHOL AND PSYCHOACTIVE SUBSTANCE WITHDRAWAL Clinical Indications for Inpatient Care (Place ' X' for any and all applicable criteria): Ongoing inpatient care may be indicated for substance withdrawal[B][C] with ANY ONE of the following(1)(2)(3)(4)(21): [ ]I. Delirium due to alcohol or sedative[D] withdrawal is present. [ ]II. Marked signs of withdrawal are present as indicated by ANY ONE of the following(15)(22)(23) [ ]a) Heart rate greater than 120 beats per minute is present. [ ]b) Severe vomiting is present (eg, precludes maintenance of oral hydration). [ ]c) Grossly visible tremor is present. [ ]d) Profuse perspiration is present. [ ]e) Temperature greater than 101 degrees F (38.3 degrees C) is present. [ ]f) Other signs of severe withdrawal are present (eg, Altered mental status ) [ ]g) Severe withdrawal identified by standardized assessment score[A] [ ]III. Signs of withdrawal that require continued inpatient treatment as indicated by ANY ONE of the following(15)(22)(23): [ ]a) Inadequate response to pharmacotherapy (eg, benzodiazepines) [ ]b) Outpatient or lower level of care is not feasible or appropriate (eg, unavailable or inappropriate to patient condition or treatment history). [ ]IV. Withdrawal signs with high-risk indicator are present as manifested by ALL of the following[A](15)(22)(23) [ ]a) Signs of withdrawal are present as indicated by ANY ONE of the following: [ ]i. Tachycardia is present. [ ]ii. Nausea or vomiting is present. [ ]iii. Tremor is present. [ ]iv. Increased perspiration is present. [ ]v. Other signs of withdrawal are present. [ ]vi. Withdrawal identified by standardized assessment score [A] [ ]b) Elevated risk due to historical or comorbid factor is present as indicated by ANY ONE of the following: [ ]i. History of delirium due to withdrawal is present. [ ]ii. History of seizures due to withdrawal is present.[E] [ ]iii. Intrinsic seizure disorder (epilepsy) is present. [ ]iv. Patient is . [ ]v. Other significant medical history (eg, severe cardiac disease) is present, which is assessed to be at risk for destabilization due to withdrawal. [ ]V. Serious electrolyte abnormalities (eg, hyponatremia, hypokalemia, hypophosphatemia) requiring correction performable only in inpatient setting(6)(25) [ ]. Severe hypoglycemia requiring glucose infusions performable only in inpatient setting(6) [X]VII. Drug toxicity or instability, such as Altered mental status, respiratory depression, or arrhythmias, that requires inpatient care [ ]VIII. Danger judged unmanageable at lower level of care because of ANY ONE of the following [ ]a) Danger to self [ ]b) Danger to others [ ]c) Grave disability (eg, inability to perform self-care necessary at lower level of care) The original [facility] Care Guidelines content created by [facility] Care Guidelines has been revised. The portions of the content which have been revised are identified through the use of italic text or in bold. [facility] Guidelines has neither reviewed nor approved the modified material. All other unmodified content is copyright [facility] Care Guidelines. Please see references footnoted in the original [facility] CareGuidelines edition 2016 Admission Criteria Met: Yes
[2016-09-22] MEDS: FLEXERIL PO PRN ×2 (08:58→18:51)
[2016-09-22] MEDS: LIBRIUM PO PRN ×2 (08:58→11:45)
[2016-09-22 09:22] LABS: Anion Gap 16 mmol/L; Blood Urea Nitrogen 10 mg/dL (9-20); Calcium 7.8 mg/dL (8.4-10.2); Carbon Dioxide 28 mmol/L (22-30); Chloride 105.7 mmol/L (98-107); Glucose 84 mg/dL (75-100); Sodium 146 mmol/L (137-145)
[2016-09-22] MEDS: KEPPRA PO SCH ×2 (10:15→22:36)
--- NOTE | 2016-09-22 10:35 | Progress Note ---
Assessment and Plan Assessment and plan: Breakthrough seizures in seizure disorder. Admitted. Neurochecks. seizure precautions. Keppra resumed Alcohol abuse and dependence. Psych consulted. Alcohol intoxication. CIWA protocol DVT prophylaxis. LOvenox Full code History Interval history: Seizures, alcohol abuse Hospitalist Physical - Physical exam Narrative exam: Appearance: Not in acute distress, HEENT: normocephalic, atraumatic Neck : supple, no JVD Lungs: Clear to auscultation bilaterally, no crackles or wheeze Heart : S1 and S2 regular, no murmurs, rubs or gallop Abdomen: soft, non-tender, non-distended, normal bowel sounds Extremities: No edema, no clubbing, no cyanosis, ulcer right elbow Neuro: Awake, alert, oriented 3, moves all ext, Psych: normal mood - Constitutional Vitals: Temp Pulse Resp BP Pulse Ox 98.2 F 110 H 18 137/87 98 09/22/16 08:00 09/22/16 08:00 09/22/16 08:00 09/22/16 08:00 09/22/16 08:00 General appearance: Present: no acute distress, well-nourished Results - Labs CBC & Chem 7: 09/21/16 09:45 09/22/16 08:39 Labs: Laboratory Last Values WBC 6.8 K/mm3 (4.5-11.0) 09/21/16 09:45 RBC 4.06 M/mm3 (3.65-5.03) 09/21/16 09:45 Hgb 13.1 gm/dl (11.8-15.2) 09/21/16 09:45 Hct 40.2 % (35.5-45.6) 09/21/16 09:45 MCV 99 fl (84-94) H 09/21/16 09:45 MCH 32 pg (28-32) 09/21/16 09:45 MCHC 33 % (32-34) 09/21/16 09:45 RDW 13.8 % (13.2-15.2) 09/21/16 09:45 Plt Count 223 K/mm3 (140-440) 09/21/16 09:45 Lymph % (Auto) 44.5 % (13.4-35.0) H 09/21/16 09:45 [place] % (Auto) 5.3 % (0.0-7.3) 09/21/16 09:45 Eos % (Auto) 0.6 % (0.0-4.3) 09/21/16 09:45 Baso % (Auto) 0.2 % (0.0-1.8) 09/21/16 09:45 Lymph # 3.0 K/mm3 (1.2-5.4) 09/21/16 09:45 [place] # 0.4 K/mm3 (0.0-0.8) 09/21/16 09:45 Eos # 0.0 K/mm3 (0.0-0.4) 09/21/16 09:45 Baso # 0.0 K/mm3 (0.0-0.1) 09/21/16 09:45 Seg Neutrophils % 49.4 % (40.0-70.0) 09/21/16 09:45 Seg Neutrophils # 3.4 K/mm3 (1.8-7.7) 09/21/16 09:45 PT 13.0 Sec. (12.2-14.9) 09/21/16 09:45 INR 0.99 (0.87-1.13) 09/21/16 09:45 APTT 29.5 Sec. (24.2-36.6) 09/21/16 09:45 Sodium 146 mmol/L (137-145) H 09/22/16 08:39 Potassium 4.0 mmol/L (3.6-5.0) 09/22/16 08:39 Chloride 105.7 mmol/L (98-107) 09/22/16 08:39 Carbon Dioxide 28 mmol/L (22-30) 09/22/16 08:39 Anion Gap 16 mmol/L 09/22/16 08:39 BUN 10 mg/dL (9-20) 09/22/16 08:39 Creatinine 0.5 mg/dL (0.8-1.5) L 09/22/16 08:39 Estimated GFR > 60 ml/min 09/22/16 08:39 BUN/Creatinine Ratio 20.00 % 09/22/16 08:39 Glucose 84 mg/dL (75-100) 09/22/16 08:39 Calcium 7.8 mg/dL (8.4-10.2) L 09/22/16 08:39 Phosphorus 3.30 mg/dL (2.5-4.5) 09/22/16 08:39 Magnesium 2.00 mg/dL (1.7-2.3) 09/21/16 09:45 Total Bilirubin 0.40 mg/dL (0.1-1.2) 09/21/16 18:25 Direct Bilirubin < 0.2 mg/dL (0-0.2) 09/21/16 18:25 Indirect Bilirubin 0.2 mg/dL 09/21/16 18:25 AST 29 units/L (5-40) 09/21/16 18:25 ALT 17 units/L (7-56) 09/21/16 18:25 Alkaline Phosphatase 70 units/L (35-129) 09/21/16 18:25 Total Protein 6.3 g/dL (6.3-8.2) 09/21/16 18:25 Albumin 3.8 g/dL (3.9-5) L 09/21/16 18:25 Albumin/Globulin Ratio 1.5 % 09/21/16 18:25 Urine Color Straw (Yellow) 09/21/16 11:54 Urine Turbidity Clear (Clear) 09/21/16 11:54 Urine pH 6.0 (5.0-7.0) 09/21/16 11:54 Ur Specific [place] 1.010 (1.003-1.030) 09/21/16 11:54 Urine Protein <15 mg/dl mg/dL (Negative) 09/21/16 11:54 Urine Glucose (UA) Neg mg/dL (Negative) 09/21/16 11:54 Urine Ketones Neg mg/dL (Negative) 09/21/16 11:54 Urine Blood Neg (Negative) 09/21/16 11:54 Urine Nitrite Neg (Negative) 09/21/16 11:54 Urine Bilirubin Neg (Negative) 09/21/16 11:54 Urine Urobilinogen < 2.0 mg/dL (<2.0) 09/21/16 11:54 Ur Leukocyte Esterase Neg (Negative) 09/21/16 11:54 Urine WBC (Auto) 1.0 /HPF (0.0-6.0) 09/21/16 11:54 Urine RBC (Auto) 2.0 /HPF (0.0-6.0) 09/21/16 11:54 U Epithel Cells (Auto) < 1.0 /HPF (0-13.0) 09/21/16 11:54 Urine Mucus Few /HPF 09/21/16 11:54 Urine Opiates Screen Presumptive negative 09/21/16 11:54 Urine Methadone Screen Presumptive negative 09/21/16 11:54 Ur Barbiturates Screen Presumptive negative 09/21/16 11:54 Ur Phencyclidine Scrn Presumptive negative 09/21/16 11:54 Ur Amphetamines Screen Presumptive negative 09/21/16 11:54 U Benzodiazepines Scrn Presumptive positive 09/21/16 11:54 Urine Cocaine Screen Presumptive negative 09/21/16 11:54 U Marijuana (THC) Screen Presumptive negative 09/21/16 11:54 Drugs of Abuse Note Disclamer 09/21/16 11:54 Plasma/Serum Alcohol 0.45 gm% (0-0.07) H 09/21/16 09:45
[2016-09-22] MEDS: NORCO 5/325 PO PRN ×2 (11:45→17:53)
[2016-09-22] MEDS ORDERED: VITAMIN B-1 100 MG, FOLVITE 1 MG, INFUVITE 10 ML in NACL 0.9% 1000 ML 1,000 ML IV ONE (14:00)
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
[2016-09-22] MEDS: HABITROL TD SCH (17:54)
[2016-09-22] MEDS: RisperDAL PO SCH (22:36)
[2016-09-22] MEDS: LOVENOX SUB-Q SCH (22:36)
[2016-09-23] MEDS: NORCO 5/325 PO PRN ×4 (03:59→23:31)
[2016-09-23] MEDS: LIBRIUM PO PRN ×2 (07:52→18:01)
[2016-09-23] MEDS: FLEXERIL PO PRN ×3 (07:56→23:32)
[2016-09-23] MEDS: KEPPRA PO SCH ×2 (09:50→21:24)
--- NOTE | 2016-09-23 13:39 | Progress Note ---
Assessment and Plan Assessment and plan: Breakthrough seizures in seizure disorder. Admitted. Neurochecks. seizure precautions. Continue Keppra. Alcohol abuse and dependence. Psych following Alcohol intoxication. [facility] protocol Suicidal. Patient is on suicide watch with 1:1 sitter. For transfer to inpatient Psych when stable. DVT prophylaxis. Lovenox Full code History Interval history: Seizures, alcohol abuse suicidal Hospitalist Physical - Physical exam Narrative exam: Appearance: Not in acute distress, HEENT: normocephalic, atraumatic Neck : supple, no JVD Lungs: Clear to auscultation bilaterally, no crackles or wheeze Heart : S1 and S2 regular, no murmurs, rubs or gallop Abdomen: soft, non-tender, non-distended, normal bowel sounds Extremities: No edema, no clubbing, no cyanosis, ulcer right elbow Neuro: Awake, alert, oriented 3, moves all ext, Psych: depressed,suicidal - Constitutional Vitals: Temp Pulse Resp BP Pulse Ox 98.9 F 98 H 18 170/105 98 09/23/16 12:05 09/23/16 12:05 09/23/16 12:05 09/23/16 12:05 09/23/16 12:05 General appearance: Present: no acute distress, well-nourished Results - Labs CBC & Chem 7: 09/21/16 09:45 09/22/16 08:39 Labs: Laboratory Last Values WBC 6.8 K/mm3 (4.5-11.0) 09/21/16 09:45 RBC 4.06 M/mm3 (3.65-5.03) 09/21/16 09:45 Hgb 13.1 gm/dl (11.8-15.2) 09/21/16 09:45 Hct 40.2 % (35.5-45.6) 09/21/16 09:45 MCV 99 fl (84-94) H 09/21/16 09:45 MCH 32 pg (28-32) 09/21/16 09:45 MCHC 33 % (32-34) 09/21/16 09:45 RDW 13.8 % (13.2-15.2) 09/21/16 09:45 Plt Count 223 K/mm3 (140-440) 09/21/16 09:45 Lymph % (Auto) 44.5 % (13.4-35.0) H 09/21/16 09:45 [place] % (Auto) 5.3 % (0.0-7.3) 09/21/16 09:45 Eos % (Auto) 0.6 % (0.0-4.3) 09/21/16 09:45 Baso % (Auto) 0.2 % (0.0-1.8) 09/21/16 09:45 Lymph # 3.0 K/mm3 (1.2-5.4) 09/21/16 09:45 [place] # 0.4 K/mm3 (0.0-0.8) 09/21/16 09:45 Eos # 0.0 K/mm3 (0.0-0.4) 09/21/16 09:45 Baso # 0.0 K/mm3 (0.0-0.1) 09/21/16 09:45 Seg Neutrophils % 49.4 % (40.0-70.0) 09/21/16 09:45 Seg Neutrophils # 3.4 K/mm3 (1.8-7.7) 09/21/16 09:45 PT 13.0 Sec. (12.2-14.9) 09/21/16 09:45 INR 0.99 (0.87-1.13) 09/21/16 09:45 APTT 29.5 Sec. (24.2-36.6) 09/21/16 09:45 Sodium 146 mmol/L (137-145) H 09/22/16 08:39 Potassium 4.0 mmol/L (3.6-5.0) 09/22/16 08:39 Chloride 105.7 mmol/L (98-107) 09/22/16 08:39 Carbon Dioxide 28 mmol/L (22-30) 09/22/16 08:39 Anion Gap 16 mmol/L 09/22/16 08:39 BUN 10 mg/dL (9-20) 09/22/16 08:39 Creatinine 0.5 mg/dL (0.8-1.5) L 09/22/16 08:39 Estimated GFR > 60 ml/min 09/22/16 08:39 BUN/Creatinine Ratio 20.00 % 09/22/16 08:39 Glucose 84 mg/dL (75-100) 09/22/16 08:39 Calcium 7.8 mg/dL (8.4-10.2) L 09/22/16 08:39 Phosphorus 3.30 mg/dL (2.5-4.5) 09/22/16 08:39 Magnesium 2.00 mg/dL (1.7-2.3) 09/21/16 09:45 Total Bilirubin 0.40 mg/dL (0.1-1.2) 09/21/16 18:25 Direct Bilirubin < 0.2 mg/dL (0-0.2) 09/21/16 18:25 Indirect Bilirubin 0.2 mg/dL 09/21/16 18:25 AST 29 units/L (5-40) 09/21/16 18:25 ALT 17 units/L (7-56) 09/21/16 18:25 Alkaline Phosphatase 70 units/L (35-129) 09/21/16 18:25 Total Protein 6.3 g/dL (6.3-8.2) 09/21/16 18:25 Albumin 3.8 g/dL (3.9-5) L 09/21/16 18:25 Albumin/Globulin Ratio 1.5 % 09/21/16 18:25 Urine Color Straw (Yellow) 09/21/16 11:54 Urine Turbidity Clear (Clear) 09/21/16 11:54 Urine pH 6.0 (5.0-7.0) 09/21/16 11:54 Ur Specific [place] 1.010 (1.003-1.030) 09/21/16 11:54 Urine Protein <15 mg/dl mg/dL (Negative) 09/21/16 11:54 Urine Glucose (UA) Neg mg/dL (Negative) 09/21/16 11:54 Urine Ketones Neg mg/dL (Negative) 09/21/16 11:54 Urine Blood Neg (Negative) 09/21/16 11:54 Urine Nitrite Neg (Negative) 09/21/16 11:54 Urine Bilirubin Neg (Negative) 09/21/16 11:54 Urine Urobilinogen < 2.0 mg/dL (<2.0) 09/21/16 11:54 Ur Leukocyte Esterase Neg (Negative) 09/21/16 11:54 Urine WBC (Auto) 1.0 /HPF (0.0-6.0) 09/21/16 11:54 Urine RBC (Auto) 2.0 /HPF (0.0-6.0) 09/21/16 11:54 U Epithel Cells (Auto) < 1.0 /HPF (0-13.0) 09/21/16 11:54 Urine Mucus Few /HPF 09/21/16 11:54 Urine Opiates Screen Presumptive negative 09/21/16 11:54 Urine Methadone Screen Presumptive negative 09/21/16 11:54 Ur Barbiturates Screen Presumptive negative 09/21/16 11:54 Ur Phencyclidine Scrn Presumptive negative 09/21/16 11:54 Ur Amphetamines Screen Presumptive negative 09/21/16 11:54 U Benzodiazepines Scrn Presumptive positive 09/21/16 11:54 Urine Cocaine Screen Presumptive negative 09/21/16 11:54 U Marijuana (THC) Screen Presumptive negative 09/21/16 11:54 Drugs of Abuse Note Disclamer 09/21/16 11:54 Plasma/Serum Alcohol 0.45 gm% (0-0.07) H 09/21/16 09:45
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
[2016-09-23] MEDS: HABITROL TD SCH (18:01)
[2016-09-23] MEDS: RisperDAL PO SCH (21:24)
[2016-09-23] MEDS: LOVENOX SUB-Q SCH (21:24)
[2016-09-23] MEDS: ATIVAN PO PRN (21:30)
[2016-09-23] MEDS ORDERED: BENADRYL PO SCH (22:00)
[2016-09-24 06:24] LABS: Anion Gap 17 mmol/L; Blood Urea Nitrogen 12 mg/dL (9-20); Calcium 8.8 mg/dL (8.4-10.2); Carbon Dioxide 28 mmol/L (22-30); Chloride 99.1 mmol/L (98-107); Glucose 94 mg/dL (75-100); Sodium 140 mmol/L (137-145)
[2016-09-24] MEDS: KEPPRA PO SCH ×2 (09:40→22:41)
--- NOTE | 2016-09-24 10:34 | Discharge Summary ---
Providers - Providers Date of Admission: 09/21/16 15:24 Date of discharge: 09/24/16 Attending physician: CORNELIUS MEZA Primary care physician: [facility] Hospitalization Condition: Fair Disposition: DISCHARGED TO HOME OR SELFCARE - Discharge Diagnoses (1) Alcohol intoxication Status: Acute Qualifiers: Complication of substance-induced condition: uncomplicated Qualified Code(s ): F10.920 - Alcohol use, unspecified with intoxication, uncomplicated Core Measure Documentation - Palliative Care Palliative Care/ Comfort Measures: Not Applicable Exam - Constitutional Vitals: Temp Pulse Resp BP Pulse Ox 97.9 F 73 18 131/98 98 09/24/16 08:07 09/24/16 08:07 09/24/16 08:07 09/24/16 08:07 09/24/16 08:07 Plan Activity: advance as tolerated Diet: regular Additional Instructions: 1.Discharge to inpatient Psych Follow up with: PRIMARY CARE, [Primary Care Provider] - 3-5 Days Prescriptions: Atenolol [Tenormin] 25 mg PO QDAY #30 tablet Folic Acid [Folvite] 1 mg PO QDAY #30 tablet HYDROcodone/APAP 5-325 [Anthony 5-325 mg TAB] 2 each PO Q6H PRN #14 tablet PRN Reason: Pain, Moderate (4-6) Nicotine [Habitrol] 21 mg TD Q24H #30 patch Thiamine [Vitamin B-1] 100 mg PO QDAY #30 tablet traZODone [Desyrel] 50 mg PO QHS #30 tablet
--- NOTE | 2016-09-24 15:21 | Progress Note ---
Subjective - Reason for Consult Consult date: 09/24/16 Reason for consult: Psychiatry Follow-up - Chief Complaint Chief complaint: "I want help" 31 year old black male seen on the medical floor. He was in the hospital in July for alcohol related problems. Today patient is calm and cooperative during assessment. Today patient stated that he was thinking about his bad choices he made over the years. He stated that he must stop drinking "ADAM." He stated that he want to go back to school or learn a trade so he can be more marketable in the workforce. He denies SI/HI's, AVH's, but admit sleep disturbance. He stated that he wants adequate sleep. Mental Status Exam - Vital signs Last Vital Signs Temp 97.9 F 09/24/16 08:07 Pulse 73 09/24/16 08:07 Resp 18 09/24/16 08:07 BP 131/98 09/24/16 08:07 Pulse Ox 98 09/24/16 08:07 - Exam Narrative exam: MSE: Appearance: calm, cooperative Behavior: good eye contact Speech: regular rate and tone Mood: "okay" Affect: congruent to mood Thought Process: linear Thought Content: denies SI/HI's and VH's Motor Activity: lying down in bed Cognition: A/Ox3 Insight: fair Judgment: fair Assessment and Plan Impression: 31 year old black male seen on the medical floor. He was in the hospital in July for alcohol related problems. Today patient is calm and cooperative during assessment. Today patient stated that he was thinking about his bad choices he made over the years. He stated that he must stop drinking "ADAM." He stated that he want to go back to school or learn a trade so he can be more marketable in the workforce. He denies SI/HI's and AVH's. Recommendation/Plan: Evaluate 1013 in 24 hours to determine proper dispo. Continue CIWA Protocol. Continue Risperdal 1mg hs for psychotic symptoms. Start Trazodone 50 mg PO HS for sleep. He needs resources for food, utilities/ housing. Assess tomorrow to see if a SSRI is needed. Monitor patient for oversedation.
[2016-09-24] MEDS: HABITROL TD SCH (17:29)
[2016-09-24] MEDS: FLEXERIL PO PRN (20:33)
[2016-09-24] MEDS: NORCO 5/325 PO PRN (20:33)
[2016-09-24] MEDS: LOVENOX SUB-Q SCH (22:40)
[2016-09-24] MEDS: DESYREL PO SCH (22:41)
[2016-09-24] MEDS: RisperDAL PO SCH (22:41)
[2016-09-25] MEDS: NORCO 5/325 PO PRN ×3 (04:53→21:36)
[2016-09-25] MEDS: KEPPRA PO SCH ×2 (10:14→21:36)
[2016-09-25] MEDS: FLEXERIL PO PRN ×2 (11:02→21:36)
--- NOTE | 2016-09-25 14:21 | Progress Note ---
Subjective - Reason for Consult Consult date: 09/25/16 Reason for consult: psychiatric follow up - Chief Complaint Chief complaint: "I want help" 31 year old black male seen on the medical floor. He was in the hospital in July for alcohol related problems. Today patient is calm and cooperative during assessment.He talked about how he was sobbing last night and having suicidal thoughts and thinking about being a failure. He reports having auditory hallucinations and racing thoughts. Mental Status Exam - Vital signs Last Vital Signs Temp 98.7 F 09/25/16 13:00 Pulse 94 H 09/25/16 13:00 Resp 18 09/25/16 13:00 BP 143/89 09/25/16 13:00 Pulse Ox 97 09/25/16 13:00 - Exam Orientation: time, place, person Affect: depressed Mood: congruent with affect Thought content: other (SI, no HI) Thought Process: Intact Perceptions: auditory Speech: normal rate and pattern Concentration: focused Motor activity: normal Level of consciousness: alert Memory: Intact Sleep Symptoms: Difficulty Falling Asleep Appetite: decreased Interaction: cooperative Assessment and Plan Assessment: SI with a plan. No current alcohol withdrawal symptoms. Psychotic symptoms present unspecified mood disorder Recommendation: 1013 and transfer to inpatient psych when medically cleared. Detox needs will be addressed by the hospitalist. Continue Risperdal 1mg hs for psychotic symptoms Increase trazodone to 100mg hs for sleep He needs resources for food, utilities/housing
[2016-09-25] MEDS: TYLENOL PO PRN (16:49)
[2016-09-25] MEDS: HABITROL TD SCH (19:39)
[2016-09-25] MEDS: DESYREL PO SCH ×2 (21:35)
[2016-09-25] MEDS: RisperDAL PO SCH (21:35)
[2016-09-25] MEDS: LOVENOX SUB-Q SCH (21:37)
[2016-09-25] MEDS ORDERED: DESYREL PO SCH (21:37)
[2016-09-26] MEDS: LIBRIUM PO PRN (03:42)
--- NOTE | 2016-09-26 09:34 | Progress Note ---
Assessment and Plan Assessment and plan: Breakthrough seizures in seizure disorder. Admitted. Neurochecks. seizure precautions. Continue Keppra. No more seizure since admitted. Alcohol abuse and dependence. Psych following Alcohol intoxication. [facility] protocol Suicidal. Patient is on suicide watch with 1:1 sitter. For transfer to inpatient Psych. DVT prophylaxis. Lovenox Full code Disposition. He is medically stable for discharge. awaiting bed in Psych facility. Discharge orders put in. - Patient Problems (1) Alcohol intoxication Current Visit: Yes Status: Acute Qualifiers: Complication of substance-induced condition: uncomplicated Qualified Code(s ): F10.920 - Alcohol use, unspecified with intoxication, uncomplicated History Interval history: Seizures, alcohol abuse suicidal Hospitalist Physical - Physical exam Narrative exam: Appearance: Not in acute distress, HEENT: normocephalic, atraumatic Neck : supple, no JVD Lungs: Clear to auscultation bilaterally, no crackles or wheeze Heart : S1 and S2 regular, no murmurs, rubs or gallop Abdomen: soft, non-tender, non-distended, normal bowel sounds Extremities: No edema, no clubbing, no cyanosis, ulcer right elbow Neuro: Awake, alert, oriented 3, moves all ext, Psych: depressed,suicidal - Constitutional Vitals: Temp Pulse Resp BP Pulse Ox 98.4 F 97 H 18 148/94 97 09/26/16 07:30 09/26/16 07:30 09/26/16 07:30 09/26/16 07:30 09/26/16 07:30 General appearance: Present: no acute distress, well-nourished Results - Labs CBC & Chem 7: 09/21/16 09:45 09/24/16 03:50 Labs: Laboratory Last Values WBC 6.8 K/mm3 (4.5-11.0) 09/21/16 09:45 RBC 4.06 M/mm3 (3.65-5.03) 09/21/16 09:45 Hgb 13.1 gm/dl (11.8-15.2) 09/21/16 09:45 Hct 40.2 % (35.5-45.6) 09/21/16 09:45 MCV 99 fl (84-94) H 09/21/16 09:45 MCH 32 pg (28-32) 09/21/16 09:45 MCHC 33 % (32-34) 09/21/16 09:45 RDW 13.8 % (13.2-15.2) 09/21/16 09:45 Plt Count 223 K/mm3 (140-440) 09/21/16 09:45 Lymph % (Auto) 44.5 % (13.4-35.0) H 09/21/16 09:45 [place] % (Auto) 5.3 % (0.0-7.3) 09/21/16 09:45 Eos % (Auto) 0.6 % (0.0-4.3) 09/21/16 09:45 Baso % (Auto) 0.2 % (0.0-1.8) 09/21/16 09:45 Lymph # 3.0 K/mm3 (1.2-5.4) 09/21/16 09:45 [place] # 0.4 K/mm3 (0.0-0.8) 09/21/16 09:45 Eos # 0.0 K/mm3 (0.0-0.4) 09/21/16 09:45 Baso # 0.0 K/mm3 (0.0-0.1) 09/21/16 09:45 Seg Neutrophils % 49.4 % (40.0-70.0) 09/21/16 09:45 Seg Neutrophils # 3.4 K/mm3 (1.8-7.7) 09/21/16 09:45 PT 13.0 Sec. (12.2-14.9) 09/21/16 09:45 INR 0.99 (0.87-1.13) 09/21/16 09:45 APTT 29.5 Sec. (24.2-36.6) 09/21/16 09:45 Sodium 140 mmol/L (137-145) 09/24/16 03:50 Potassium 4.0 mmol/L (3.6-5.0) 09/24/16 03:50 Chloride 99.1 mmol/L (98-107) 09/24/16 03:50 Carbon Dioxide 28 mmol/L (22-30) 09/24/16 03:50 Anion Gap 17 mmol/L 09/24/16 03:50 BUN 12 mg/dL (9-20) 09/24/16 03:50 Creatinine 0.8 mg/dL (0.8-1.5) D 09/24/16 03:50 Estimated GFR > 60 ml/min 09/24/16 03:50 BUN/Creatinine Ratio 15.00 % 09/24/16 03:50 Glucose 94 mg/dL (75-100) 09/24/16 03:50 Calcium 8.8 mg/dL (8.4-10.2) 09/24/16 03:50 Phosphorus 3.30 mg/dL (2.5-4.5) 09/22/16 08:39 Magnesium 2.00 mg/dL (1.7-2.3) 09/21/16 09:45 Total Bilirubin 0.40 mg/dL (0.1-1.2) 09/21/16 18:25 Direct Bilirubin < 0.2 mg/dL (0-0.2) 09/21/16 18:25 Indirect Bilirubin 0.2 mg/dL 09/21/16 18:25 AST 29 units/L (5-40) 09/21/16 18:25 ALT 17 units/L (7-56) 09/21/16 18:25 Alkaline Phosphatase 70 units/L (35-129) 09/21/16 18:25 Total Protein 6.3 g/dL (6.3-8.2) 09/21/16 18:25 Albumin 3.8 g/dL (3.9-5) L 09/21/16 18:25 Albumin/Globulin Ratio 1.5 % 09/21/16 18:25 Urine Color Straw (Yellow) 09/21/16 11:54 Urine Turbidity Clear (Clear) 09/21/16 11:54 Urine pH 6.0 (5.0-7.0) 09/21/16 11:54 Ur Specific [place] 1.010 (1.003-1.030) 09/21/16 11:54 Urine Protein <15 mg/dl mg/dL (Negative) 09/21/16 11:54 Urine Glucose (UA) Neg mg/dL (Negative) 09/21/16 11:54 Urine Ketones Neg mg/dL (Negative) 09/21/16 11:54 Urine Blood Neg (Negative) 09/21/16 11:54 Urine Nitrite Neg (Negative) 09/21/16 11:54 Urine Bilirubin Neg (Negative) 09/21/16 11:54 Urine Urobilinogen < 2.0 mg/dL (<2.0) 09/21/16 11:54 Ur Leukocyte Esterase Neg (Negative) 09/21/16 11:54 Urine WBC (Auto) 1.0 /HPF (0.0-6.0) 09/21/16 11:54 Urine RBC (Auto) 2.0 /HPF (0.0-6.0) 09/21/16 11:54 U Epithel Cells (Auto) < 1.0 /HPF (0-13.0) 09/21/16 11:54 Urine Mucus Few /HPF 09/21/16 11:54 Urine Opiates Screen Presumptive negative 09/21/16 11:54 Urine Methadone Screen Presumptive negative 09/21/16 11:54 Ur Barbiturates Screen Presumptive negative 09/21/16 11:54 Ur Phencyclidine Scrn Presumptive negative 09/21/16 11:54 Ur Amphetamines Screen Presumptive negative 09/21/16 11:54 U Benzodiazepines Scrn Presumptive positive 09/21/16 11:54 Urine Cocaine Screen Presumptive negative 09/21/16 11:54 U Marijuana (THC) Screen Presumptive negative 09/21/16 11:54 Drugs of Abuse Note Disclamer 09/21/16 11:54 Plasma/Serum Alcohol 0.45 gm% (0-0.07) H 09/21/16 09:45
[2016-09-26] MEDS: KEPPRA PO SCH ×2 (10:12→21:46)
[2016-09-26] MEDS: NORCO 5/325 PO PRN ×2 (10:18→16:51)
[2016-09-26] MEDS: FLEXERIL PO PRN ×2 (10:18→21:47)
--- NOTE | 2016-09-26 11:57 | Progress Note ---
Assessment and Plan Assessment and plan: Breakthrough seizures in seizure disorder. Admitted. Neurochecks. seizure precautions. Continue Keppra. No more seizure since admitted. Alcohol abuse and dependence. Psych following Alcohol intoxication. [facility] protocol Suicidal. Patient is on suicide watch with 1:1 sitter. For transfer to inpatient Psych. DVT prophylaxis. Lovenox Full code Disposition. He is medically stable for discharge. Awaiting bed in Psych facility. - Patient Problems (1) Alcohol intoxication Current Visit: Yes Status: Acute Qualifiers: Complication of substance-induced condition: uncomplicated Qualified Code(s ): F10.920 - Alcohol use, unspecified with intoxication, uncomplicated History Interval history: Seizures, alcohol abuse suicidal Hospitalist Physical - Physical exam Narrative exam: Appearance: Not in acute distress, HEENT: normocephalic, atraumatic Neck : supple, no JVD Lungs: Clear to auscultation bilaterally, no crackles or wheeze Heart : S1 and S2 regular, no murmurs, rubs or gallop Abdomen: soft, non-tender, non-distended, normal bowel sounds Extremities: No edema, no clubbing, no cyanosis, ulcer right elbow Neuro: Awake, alert, oriented 3, moves all ext, Psych: depressed,suicidal - Constitutional Vitals: Temp Pulse Resp BP Pulse Ox 98.4 F 97 H 18 148/94 97 09/26/16 07:30 09/26/16 07:30 09/26/16 07:30 09/26/16 07:30 09/26/16 10:00 General appearance: Present: no acute distress, well-nourished Results - Labs CBC & Chem 7: 09/21/16 09:45 09/24/16 03:50 Labs: Laboratory Last Values WBC 6.8 K/mm3 (4.5-11.0) 09/21/16 09:45 RBC 4.06 M/mm3 (3.65-5.03) 09/21/16 09:45 Hgb 13.1 gm/dl (11.8-15.2) 09/21/16 09:45 Hct 40.2 % (35.5-45.6) 09/21/16 09:45 MCV 99 fl (84-94) H 09/21/16 09:45 MCH 32 pg (28-32) 09/21/16 09:45 MCHC 33 % (32-34) 09/21/16 09:45 RDW 13.8 % (13.2-15.2) 09/21/16 09:45 Plt Count 223 K/mm3 (140-440) 09/21/16 09:45 Lymph % (Auto) 44.5 % (13.4-35.0) H 09/21/16 09:45 [place] % (Auto) 5.3 % (0.0-7.3) 09/21/16 09:45 Eos % (Auto) 0.6 % (0.0-4.3) 09/21/16 09:45 Baso % (Auto) 0.2 % (0.0-1.8) 09/21/16 09:45 Lymph # 3.0 K/mm3 (1.2-5.4) 09/21/16 09:45 [place] # 0.4 K/mm3 (0.0-0.8) 09/21/16 09:45 Eos # 0.0 K/mm3 (0.0-0.4) 09/21/16 09:45 Baso # 0.0 K/mm3 (0.0-0.1) 09/21/16 09:45 Seg Neutrophils % 49.4 % (40.0-70.0) 09/21/16 09:45 Seg Neutrophils # 3.4 K/mm3 (1.8-7.7) 09/21/16 09:45 PT 13.0 Sec. (12.2-14.9) 09/21/16 09:45 INR 0.99 (0.87-1.13) 09/21/16 09:45 APTT 29.5 Sec. (24.2-36.6) 09/21/16 09:45 Sodium 140 mmol/L (137-145) 09/24/16 03:50 Potassium 4.0 mmol/L (3.6-5.0) 09/24/16 03:50 Chloride 99.1 mmol/L (98-107) 09/24/16 03:50 Carbon Dioxide 28 mmol/L (22-30) 09/24/16 03:50 Anion Gap 17 mmol/L 09/24/16 03:50 BUN 12 mg/dL (9-20) 09/24/16 03:50 Creatinine 0.8 mg/dL (0.8-1.5) D 09/24/16 03:50 Estimated GFR > 60 ml/min 09/24/16 03:50 BUN/Creatinine Ratio 15.00 % 09/24/16 03:50 Glucose 94 mg/dL (75-100) 09/24/16 03:50 Calcium 8.8 mg/dL (8.4-10.2) 09/24/16 03:50 Phosphorus 3.30 mg/dL (2.5-4.5) 09/22/16 08:39 Magnesium 2.00 mg/dL (1.7-2.3) 09/21/16 09:45 Total Bilirubin 0.40 mg/dL (0.1-1.2) 09/21/16 18:25 Direct Bilirubin < 0.2 mg/dL (0-0.2) 09/21/16 18:25 Indirect Bilirubin 0.2 mg/dL 09/21/16 18:25 AST 29 units/L (5-40) 09/21/16 18:25 ALT 17 units/L (7-56) 09/21/16 18:25 Alkaline Phosphatase 70 units/L (35-129) 09/21/16 18:25 Total Protein 6.3 g/dL (6.3-8.2) 09/21/16 18:25 Albumin 3.8 g/dL (3.9-5) L 09/21/16 18:25 Albumin/Globulin Ratio 1.5 % 09/21/16 18:25 Urine Color Straw (Yellow) 09/21/16 11:54 Urine Turbidity Clear (Clear) 09/21/16 11:54 Urine pH 6.0 (5.0-7.0) 09/21/16 11:54 Ur Specific [place] 1.010 (1.003-1.030) 09/21/16 11:54 Urine Protein <15 mg/dl mg/dL (Negative) 09/21/16 11:54 Urine Glucose (UA) Neg mg/dL (Negative) 09/21/16 11:54 Urine Ketones Neg mg/dL (Negative) 09/21/16 11:54 Urine Blood Neg (Negative) 09/21/16 11:54 Urine Nitrite Neg (Negative) 09/21/16 11:54 Urine Bilirubin Neg (Negative) 09/21/16 11:54 Urine Urobilinogen < 2.0 mg/dL (<2.0) 09/21/16 11:54 Ur Leukocyte Esterase Neg (Negative) 09/21/16 11:54 Urine WBC (Auto) 1.0 /HPF (0.0-6.0) 09/21/16 11:54 Urine RBC (Auto) 2.0 /HPF (0.0-6.0) 09/21/16 11:54 U Epithel Cells (Auto) < 1.0 /HPF (0-13.0) 09/21/16 11:54 Urine Mucus Few /HPF 09/21/16 11:54 Urine Opiates Screen Presumptive negative 09/21/16 11:54 Urine Methadone Screen Presumptive negative 09/21/16 11:54 Ur Barbiturates Screen Presumptive negative 09/21/16 11:54 Ur Phencyclidine Scrn Presumptive negative 09/21/16 11:54 Ur Amphetamines Screen Presumptive negative 09/21/16 11:54 U Benzodiazepines Scrn Presumptive positive 09/21/16 11:54 Urine Cocaine Screen Presumptive negative 09/21/16 11:54 U Marijuana (THC) Screen Presumptive negative 09/21/16 11:54 Drugs of Abuse Note Disclamer 09/21/16 11:54 Plasma/Serum Alcohol 0.45 gm% (0-0.07) H 09/21/16 09:45
--- NOTE | 2016-09-26 16:05 | Progress Note ---
Subjective - Reason for Consult Consult date: 09/26/16 Reason for consult: psychiatric follow up - Chief Complaint Chief complaint: "I feel a little better today" 31 year old black male seen on the medical floor. He was in the hospital in July for alcohol related problems. Today patient is calm and cooperative during assessment.He talked about how nights are the worst time of day for him. He reports having suicidal thoughts and thinking about being a failure. He reports having auditory hallucinations, non command, and racing thoughts. Trazodone was not helpful for sleep last night. Mental Status Exam - Vital signs Last Vital Signs Temp 98.4 F 09/26/16 07:30 Pulse 97 H 09/26/16 07:30 Resp 18 09/26/16 07:30 BP 148/94 09/26/16 07:30 Pulse Ox 97 09/26/16 10:00 - Exam Orientation: time, place, person Affect: depressed Mood: congruent with affect Thought content: other (SI, no HI) Thought Process: Intact Perceptions: auditory Speech: normal rate and pattern Concentration: focused Motor activity: normal Level of consciousness: alert Memory: Intact Sleep Symptoms: Difficulty Falling Asleep Appetite: decreased Interaction: cooperative Assessment and Plan Assessment: SI with a plan. No current alcohol withdrawal symptoms. Psychotic symptoms present unspecified mood disorder alcohol use disorder, severe Recommendation: 1013 and transfer to inpatient psych when medically cleared. Detox needs will be addressed by the hospitalist. Increase Risperdal to 2mg hs for mood/psychotic symptoms Continue trazodone to 100mg hs for sleep He needs resources for food, utilities/housing
[2016-09-26] MEDS: TENORMIN PO SCH (16:51)
[2016-09-26] MEDS: HABITROL TD SCH (18:10)
[2016-09-26] MEDS: RisperDAL PO SCH (21:46)
[2016-09-26] MEDS: LOVENOX SUB-Q SCH (21:46)
[2016-09-26] MEDS: DESYREL PO SCH (21:46)
[2016-09-27] MEDS: NORCO 5/325 PO PRN ×3 (00:37→22:58)
--- NOTE | 2016-09-27 09:54 | Progress Note ---
Assessment and Plan Assessment and plan: Breakthrough seizures in seizure disorder. Admitted. Neurochecks. seizure precautions. Continue Keppra. No more seizure since admitted. Alcohol abuse and dependence. Psych following Alcohol intoxication. [facility] protocol Suicidal. Patient is on suicide watch with 1:1 sitter. For transfer to inpatient Psych. DVT prophylaxis. Lovenox Full code Disposition. He is medically stable for discharge. Awaiting bed in Psych facility. - Patient Problems (1) Alcohol intoxication Current Visit: Yes Status: Acute Qualifiers: Complication of substance-induced condition: uncomplicated Qualified Code(s ): F10.920 - Alcohol use, unspecified with intoxication, uncomplicated History Interval history: Seizures, alcohol abuse suicidal Hospitalist Physical - Physical exam Narrative exam: Appearance: Not in acute distress, HEENT: normocephalic, atraumatic Neck : supple, no JVD Lungs: Clear to auscultation bilaterally, no crackles or wheeze Heart : S1 and S2 regular, no murmurs, rubs or gallop Abdomen: soft, non-tender, non-distended, normal bowel sounds Extremities: No edema, no clubbing, no cyanosis, ulcer right elbow Neuro: Awake, alert, oriented 3, moves all ext, Psych: depressed,suicidal - Constitutional Vitals: Temp Pulse Resp BP Pulse Ox 98.7 F 67 18 129/84 99 09/27/16 00:00 09/27/16 00:00 09/27/16 01:37 09/27/16 00:00 09/27/16 00:00 General appearance: Present: no acute distress, well-nourished Results - Labs CBC & Chem 7: 09/21/16 09:45 09/24/16 03:50 Labs: Laboratory Last Values WBC 6.8 K/mm3 (4.5-11.0) 09/21/16 09:45 RBC 4.06 M/mm3 (3.65-5.03) 09/21/16 09:45 Hgb 13.1 gm/dl (11.8-15.2) 09/21/16 09:45 Hct 40.2 % (35.5-45.6) 09/21/16 09:45 MCV 99 fl (84-94) H 09/21/16 09:45 MCH 32 pg (28-32) 09/21/16 09:45 MCHC 33 % (32-34) 09/21/16 09:45 RDW 13.8 % (13.2-15.2) 09/21/16 09:45 Plt Count 223 K/mm3 (140-440) 09/21/16 09:45 Lymph % (Auto) 44.5 % (13.4-35.0) H 09/21/16 09:45 [place] % (Auto) 5.3 % (0.0-7.3) 09/21/16 09:45 Eos % (Auto) 0.6 % (0.0-4.3) 09/21/16 09:45 Baso % (Auto) 0.2 % (0.0-1.8) 09/21/16 09:45 Lymph # 3.0 K/mm3 (1.2-5.4) 09/21/16 09:45 [place] # 0.4 K/mm3 (0.0-0.8) 09/21/16 09:45 Eos # 0.0 K/mm3 (0.0-0.4) 09/21/16 09:45 Baso # 0.0 K/mm3 (0.0-0.1) 09/21/16 09:45 Seg Neutrophils % 49.4 % (40.0-70.0) 09/21/16 09:45 Seg Neutrophils # 3.4 K/mm3 (1.8-7.7) 09/21/16 09:45 PT 13.0 Sec. (12.2-14.9) 09/21/16 09:45 INR 0.99 (0.87-1.13) 09/21/16 09:45 APTT 29.5 Sec. (24.2-36.6) 09/21/16 09:45 Sodium 140 mmol/L (137-145) 09/24/16 03:50 Potassium 4.0 mmol/L (3.6-5.0) 09/24/16 03:50 Chloride 99.1 mmol/L (98-107) 09/24/16 03:50 Carbon Dioxide 28 mmol/L (22-30) 09/24/16 03:50 Anion Gap 17 mmol/L 09/24/16 03:50 BUN 12 mg/dL (9-20) 09/24/16 03:50 Creatinine 0.8 mg/dL (0.8-1.5) D 09/24/16 03:50 Estimated GFR > 60 ml/min 09/24/16 03:50 BUN/Creatinine Ratio 15.00 % 09/24/16 03:50 Glucose 94 mg/dL (75-100) 09/24/16 03:50 Calcium 8.8 mg/dL (8.4-10.2) 09/24/16 03:50 Phosphorus 3.30 mg/dL (2.5-4.5) 09/22/16 08:39 Magnesium 2.00 mg/dL (1.7-2.3) 09/21/16 09:45 Total Bilirubin 0.40 mg/dL (0.1-1.2) 09/21/16 18:25 Direct Bilirubin < 0.2 mg/dL (0-0.2) 09/21/16 18:25 Indirect Bilirubin 0.2 mg/dL 09/21/16 18:25 AST 29 units/L (5-40) 09/21/16 18:25 ALT 17 units/L (7-56) 09/21/16 18:25 Alkaline Phosphatase 70 units/L (35-129) 09/21/16 18:25 Total Protein 6.3 g/dL (6.3-8.2) 09/21/16 18:25 Albumin 3.8 g/dL (3.9-5) L 09/21/16 18:25 Albumin/Globulin Ratio 1.5 % 09/21/16 18:25 Urine Color Straw (Yellow) 09/21/16 11:54 Urine Turbidity Clear (Clear) 09/21/16 11:54 Urine pH 6.0 (5.0-7.0) 09/21/16 11:54 Ur Specific [place] 1.010 (1.003-1.030) 09/21/16 11:54 Urine Protein <15 mg/dl mg/dL (Negative) 09/21/16 11:54 Urine Glucose (UA) Neg mg/dL (Negative) 09/21/16 11:54 Urine Ketones Neg mg/dL (Negative) 09/21/16 11:54 Urine Blood Neg (Negative) 09/21/16 11:54 Urine Nitrite Neg (Negative) 09/21/16 11:54 Urine Bilirubin Neg (Negative) 09/21/16 11:54 Urine Urobilinogen < 2.0 mg/dL (<2.0) 09/21/16 11:54 Ur Leukocyte Esterase Neg (Negative) 09/21/16 11:54 Urine WBC (Auto) 1.0 /HPF (0.0-6.0) 09/21/16 11:54 Urine RBC (Auto) 2.0 /HPF (0.0-6.0) 09/21/16 11:54 U Epithel Cells (Auto) < 1.0 /HPF (0-13.0) 09/21/16 11:54 Urine Mucus Few /HPF 09/21/16 11:54 Urine Opiates Screen Presumptive negative 09/21/16 11:54 Urine Methadone Screen Presumptive negative 09/21/16 11:54 Ur Barbiturates Screen Presumptive negative 09/21/16 11:54 Ur Phencyclidine Scrn Presumptive negative 09/21/16 11:54 Ur Amphetamines Screen Presumptive negative 09/21/16 11:54 U Benzodiazepines Scrn Presumptive positive 09/21/16 11:54 Urine Cocaine Screen Presumptive negative 09/21/16 11:54 U Marijuana (THC) Screen Presumptive negative 09/21/16 11:54 Drugs of Abuse Note Disclamer 09/21/16 11:54 Plasma/Serum Alcohol 0.45 gm% (0-0.07) H 09/21/16 09:45
[2016-09-27] MEDS: ATIVAN PO PRN (10:24)
[2016-09-27] MEDS: TENORMIN PO SCH (10:24)
[2016-09-27] MEDS: KEPPRA PO SCH ×2 (10:25→21:53)
--- NOTE | 2016-09-27 17:57 | Progress Note ---
Subjective - Reason for Consult Consult date: 09/27/16 Reason for consult: Psychiatry Follow-up - Chief Complaint Chief complaint: "I feel tired" 31 year old black male seen on the medical floor. Today patient is calm and cooperative during assessment. He stated that he feels tired and restless at night and wants sleep. He denies SI's today, but he stated they "come and go." He denies HI's and AVH's. He stated that the racing thoughts prevents him from sleeping at night. He stated that the Trazodone was not helping him sleep. Mental Status Exam - Vital signs Last Vital Signs Temp 98.7 F 09/27/16 00:00 Pulse 67 09/27/16 00:00 Resp 18 09/27/16 01:37 BP 129/84 09/27/16 00:00 Pulse Ox 99 09/27/16 00:00 - Exam Narrative exam: MSE: Appearance: calm, cooperative Behavior: good eye contact Speech: regular rate and tone Mood: "okay" Affect: congruent to mood Thought Process: linear Thought Content: denies SI/HI's and AVH's Motor Activity: lying down in bed Cognition: A/Ox3 Insight: fair Judgment: fair Assessment and Plan Impression: Alcohol Use DO. 31 year old black male seen on the medical floor. Today patient is calm and cooperative during assessment. He stated that he feels tired and restless at night and wants sleep. He denies SI's today, but he stated they "come and go." He denies HI's and AVH's. Patient is concerned about his life and the correct path to take. No acute withdrawals noted. Recommendation/Plan: Continue 1013 with placement to inpatient or outpatient psy services. Continue [facility] Protocol. Continue Risperdal 2mg hs for psychotic symptoms. Start Seroquel 50 mg PO HS for sleep. He needs resources for food, utilities/housing. Monitor patient for oversedation. Discussed possible metabolic side effects of Seroquel and Risperdal. Discsussed generalized coping skills with patients.
[2016-09-27] MEDS: HABITROL TD SCH (18:16)
[2016-09-27] MEDS: LOVENOX SUB-Q SCH (21:52)
[2016-09-27] MEDS: RisperDAL PO SCH (21:53)
[2016-09-27] MEDS: FLEXERIL PO PRN (22:58)
[2016-09-28 07:58] LABS: Hematocrit 36.5 % (35.5-45.6); Hemoglobin 12.3 gm/dl (11.8-15.2); Mean Corpuscular HGB Conc 34 % (32-34); Mean Corpuscular Hemoglobin 33 pg (28-32); Mean Corpuscular Volume 99 fl (84-94); Platelet Count 183 K/mm3 (140-440); Red Blood Count 3.69 M/mm3 (3.65-5.03)
[2016-09-28 08:01] LABS: Anion Gap 18 mmol/L; BUN/Creatinine Ratio 28.57; Blood Urea Nitrogen 20 mg/dL (9-20); Carbon Dioxide 26 mmol/L (22-30); Chloride 97.9 mmol/L (98-107); Glucose 101 mg/dL (75-100); Sodium 138 mmol/L (137-145)
[2016-09-28] MEDS: NORCO 5/325 PO PRN ×2 (08:40→23:47)
[2016-09-28] MEDS: ATIVAN PO PRN ×2 (10:02→23:47)
[2016-09-28] MEDS: KEPPRA PO SCH ×2 (10:02→23:39)
[2016-09-28] MEDS: FLEXERIL PO PRN (10:02)
[2016-09-28] MEDS: TENORMIN PO SCH (10:04)
--- NOTE | 2016-09-28 12:52 | Progress Note ---
Assessment and Plan Assessment and plan: 1. Alcohol Intoxication - Resolved - patient is on [facility] protocol for alcohol withdrawal 2. Seizure - Likely alcohol withdrawal will continue keppra Psychosis - on risperdal Insomnia - on seroquel DVT prophylaxis Lovenox Disposition - Per psych: to inpatient psych facility History Interval history: Patient was seen and evaluated this morning, patient said he couldn't sleep well and the sleep meds didn't work well. Hospitalist Physical - Physical exam Narrative exam: Not in cardiopulmonary distress. The patient appeared well nourished and normally developed. Vital signs as documented. Head exam is unremarkable. No scleral icterus . Neck is without jugular venous distension, thyromegaly, or carotid bruits. Lungs are clear to auscultation. Cardiac exam reveals regular rate and Rhythm. First and second heart sounds normal. No murmurs, rubs or gallops. Abdominal exam reveals normal bowel sounds, no masses, no organomegaly and no aortic enlargement. Extremities are nonedematous and both femoral and pedal pulses are normal. PARENT TRAINER: Alert and oriented 3. No focal weakness. - Constitutional Vitals: Temp Pulse Resp BP Pulse Ox 98.1 F 81 15 120/84 97 09/28/16 07:40 09/28/16 10:04 09/28/16 07:40 09/28/16 10:04 09/28/16 07:40 General appearance: Present: no acute distress, well-nourished Results - Labs CBC & Chem 7: 09/28/16 07:00 09/28/16 07:00 Labs: Laboratory Last Values WBC 6.0 K/mm3 (4.5-11.0) 09/28/16 07:00 RBC 3.69 M/mm3 (3.65-5.03) 09/28/16 07:00 Hgb 12.3 gm/dl (11.8-15.2) 09/28/16 07:00 Hct 36.5 % (35.5-45.6) 09/28/16 07:00 MCV 99 fl (84-94) H 09/28/16 07:00 MCH 33 pg (28-32) H 09/28/16 07:00 MCHC 34 % (32-34) 09/28/16 07:00 RDW 13.0 % (13.2-15.2) L 09/28/16 07:00 Plt Count 183 K/mm3 (140-440) 09/28/16 07:00 Lymph % (Auto) 44.5 % (13.4-35.0) H 09/21/16 09:45 [place] % (Auto) 5.3 % (0.0-7.3) 09/21/16 09:45 Eos % (Auto) 0.6 % (0.0-4.3) 09/21/16 09:45 Baso % (Auto) 0.2 % (0.0-1.8) 09/21/16 09:45 Lymph # 3.0 K/mm3 (1.2-5.4) 09/21/16 09:45 [place] # 0.4 K/mm3 (0.0-0.8) 09/21/16 09:45 Eos # 0.0 K/mm3 (0.0-0.4) 09/21/16 09:45 Baso # 0.0 K/mm3 (0.0-0.1) 09/21/16 09:45 Seg Neutrophils % 49.4 % (40.0-70.0) 09/21/16 09:45 Seg Neutrophils # 3.4 K/mm3 (1.8-7.7) 09/21/16 09:45 PT 13.0 Sec. (12.2-14.9) 09/21/16 09:45 INR 0.99 (0.87-1.13) 09/21/16 09:45 APTT 29.5 Sec. (24.2-36.6) 09/21/16 09:45 Sodium 138 mmol/L (137-145) 09/28/16 07:00 Potassium 4.0 mmol/L (3.6-5.0) 09/28/16 07:00 Chloride 97.9 mmol/L (98-107) L 09/28/16 07:00 Carbon Dioxide 26 mmol/L (22-30) 09/28/16 07:00 Anion Gap 18 mmol/L 09/28/16 07:00 BUN 20 mg/dL (9-20) 09/28/16 07:00 Creatinine 0.7 mg/dL (0.8-1.5) L 09/28/16 07:00 Estimated GFR > 60 ml/min 09/28/16 07:00 BUN/Creatinine Ratio 28.57 % 09/28/16 07:00 Glucose 101 mg/dL (75-100) H 09/28/16 07:00 Calcium 9.0 mg/dL (8.4-10.2) 09/28/16 07:00 Phosphorus 3.30 mg/dL (2.5-4.5) 09/22/16 08:39 Magnesium 2.00 mg/dL (1.7-2.3) 09/21/16 09:45 Total Bilirubin 0.40 mg/dL (0.1-1.2) 09/21/16 18:25 Direct Bilirubin < 0.2 mg/dL (0-0.2) 09/21/16 18:25 Indirect Bilirubin 0.2 mg/dL 09/21/16 18:25 AST 29 units/L (5-40) 09/21/16 18:25 ALT 17 units/L (7-56) 09/21/16 18:25 Alkaline Phosphatase 70 units/L (35-129) 09/21/16 18:25 Total Protein 6.3 g/dL (6.3-8.2) 09/21/16 18:25 Albumin 3.8 g/dL (3.9-5) L 09/21/16 18:25 Albumin/Globulin Ratio 1.5 % 09/21/16 18:25 Urine Color Straw (Yellow) 09/21/16 11:54 Urine Turbidity Clear (Clear) 09/21/16 11:54 Urine pH 6.0 (5.0-7.0) 09/21/16 11:54 Ur Specific Dameron 1.010 (1.003-1.030) 09/21/16 11:54 Urine Protein <15 mg/dl mg/dL (Negative) 09/21/16 11:54 Urine Glucose (UA) Neg mg/dL (Negative) 09/21/16 11:54 Urine Ketones Neg mg/dL (Negative) 09/21/16 11:54 Urine Blood Neg (Negative) 09/21/16 11:54 Urine Nitrite Neg (Negative) 09/21/16 11:54 Urine Bilirubin Neg (Negative) 09/21/16 11:54 Urine Urobilinogen < 2.0 mg/dL (<2.0) 09/21/16 11:54 Ur Leukocyte Esterase Neg (Negative) 09/21/16 11:54 Urine WBC (Auto) 1.0 /HPF (0.0-6.0) 09/21/16 11:54 Urine RBC (Auto) 2.0 /HPF (0.0-6.0) 09/21/16 11:54 U Epithel Cells (Auto) < 1.0 /HPF (0-13.0) 09/21/16 11:54 Urine Mucus Few /HPF 09/21/16 11:54 Urine Opiates Screen Presumptive negative 09/21/16 11:54 Urine Methadone Screen Presumptive negative 09/21/16 11:54 Ur Barbiturates Screen Presumptive negative 09/21/16 11:54 Ur Phencyclidine Scrn Presumptive negative 09/21/16 11:54 Ur Amphetamines Screen Presumptive negative 09/21/16 11:54 U Benzodiazepines Scrn Presumptive positive 09/21/16 11:54 Urine Cocaine Screen Presumptive negative 09/21/16 11:54 U Marijuana (THC) Screen Presumptive negative 09/21/16 11:54 Drugs of Abuse Note Disclamer 09/21/16 11:54 Plasma/Serum Alcohol 0.45 gm% (0-0.07) H 09/21/16 09:45
--- NOTE | 2016-09-28 13:59 | Progress Note ---
Subjective - Reason for Consult Consult date: 09/28/16 Reason for consult: Psychiatry Follow-up - Chief Complaint Chief complaint: "I got some sleep" 31 year old black male seen on the medical floor. Today patient is calm and cooperative during assessment. He stated that he finally got some sleep last night. He stated that the voices has "ceased" and his thoughts has "slowed down. " He denies SI/HI's, AVH's and depression symptoms. Patient is willing to try rehab services for his alcohol abuse once discharged. Also, he stated that getting a stable job is one of his main objectives. Mental Status Exam - Vital signs Last Vital Signs Temp 98.1 F 09/28/16 07:40 Pulse 81 09/28/16 10:04 Resp 15 09/28/16 07:40 BP 120/84 09/28/16 10:04 Pulse Ox 97 09/28/16 07:40 - Exam Narrative exam: MSE: Appearance: calm, cooperative Behavior: good eye contact Speech: regular rate and tone Mood: "okay" Affect: congruent to mood Thought Process: linear Thought Content: denies SI/HI's and AVH's Motor Activity: lying down in bed Cognition: A/Ox3 Insight: fair Judgment: fair Assessment and Plan Impression: Alcohol Use DO. 31 year old black male seen on the medical floor. Today patient is calm and cooperative during assessment. He stated that he finally got some sleep last night. He stated that the voices has "ceased" and his thoughts has "slowed down." He denies SI/HI's, AVH's and depression symptoms. Patient continue to receive prn Ativan IV per CIWA. No acute withdrawals noted. Recommendation/Plan: Evaluate 1013 in 24 hours to determine proper dispo. Recommend Librium taper CIWA Protocol. Continue Risperdal 2mg hs for psychotic symptoms. Continue Seroquel 50 mg PO HS for sleep. He needs resources for food, utilities/housing. Monitor patient for oversedation. Discussed possible metabolic side effects of Seroquel and Risperdal. Discussed generalized coping skills with patients and the importance of abstaining from alcohol consumption..
[2016-09-28] MEDS: HABITROL TD SCH (19:56)
[2016-09-28] MEDS: LOVENOX SUB-Q SCH (23:38)
[2016-09-28] MEDS: RisperDAL PO SCH (23:39)
[2016-09-29] MEDS: LIBRIUM PO SCH ×3 (11:00→21:29)
[2016-09-29] MEDS: KEPPRA PO SCH ×2 (11:00→21:29)
[2016-09-29] MEDS: TENORMIN PO SCH (11:01)
[2016-09-29] MEDS: NORCO 5/325 PO PRN (12:52)
--- NOTE | 2016-09-29 13:13 | Progress Note ---
Assessment and Plan Assessment and plan: 1. Alcohol Intoxication - Resolved - patient is on CIMD protocol for alcohol withdrawal 2. Seizure - Likely alcohol withdrawal will continue keppra Psychosis - on risperdal Insomnia - on seroquel DVT prophylaxis Lovenox Disposition - Patient was discharged from our service last time to go to inpatient rehabilitation but the patient couldn't make it. Psych recommended to transfer him to inpatient psych facility. History Interval history: Patient was seen and evaluated this morning, he slept well last night. No new complaints. Hospitalist Physical - Physical exam Narrative exam: Not in cardiopulmonary distress. The patient appeared well nourished and normally developed. Vital signs as documented. Head exam is unremarkable. No scleral icterus . Neck is without jugular venous distension, thyromegaly, or carotid bruits. Lungs are clear to auscultation. Cardiac exam reveals regular rate and Rhythm. First and second heart sounds normal. No murmurs, rubs or gallops. Abdominal exam reveals normal bowel sounds, no masses, no organomegaly and no aortic enlargement. Extremities are nonedematous and both femoral and pedal pulses are normal. VICE PRESIDENT RISK MANAGEMENT: Alert and oriented 3. No focal weakness. - Constitutional Vitals: Temp Pulse Resp BP Pulse Ox 98.0 F 76 18 128/82 98 09/29/16 07:00 09/29/16 07:00 09/29/16 07:00 09/29/16 11:01 09/29/16 07:00 General appearance: Present: no acute distress, well-nourished Results - Labs CBC & Chem 7: 09/28/16 07:00 09/28/16 07:00 Labs: Laboratory Last Values WBC 6.0 K/mm3 (4.5-11.0) 09/28/16 07:00 RBC 3.69 M/mm3 (3.65-5.03) 09/28/16 07:00 Hgb 12.3 gm/dl (11.8-15.2) 09/28/16 07:00 Hct 36.5 % (35.5-45.6) 09/28/16 07:00 MCV 99 fl (84-94) H 09/28/16 07:00 MCH 33 pg (28-32) H 09/28/16 07:00 MCHC 34 % (32-34) 09/28/16 07:00 RDW 13.0 % (13.2-15.2) L 09/28/16 07:00 Plt Count 183 K/mm3 (140-440) 09/28/16 07:00 Lymph % (Auto) 44.5 % (13.4-35.0) H 09/21/16 09:45 [place] % (Auto) 5.3 % (0.0-7.3) 09/21/16 09:45 Eos % (Auto) 0.6 % (0.0-4.3) 09/21/16 09:45 Baso % (Auto) 0.2 % (0.0-1.8) 09/21/16 09:45 Lymph # 3.0 K/mm3 (1.2-5.4) 09/21/16 09:45 [place] # 0.4 K/mm3 (0.0-0.8) 09/21/16 09:45 Eos # 0.0 K/mm3 (0.0-0.4) 09/21/16 09:45 Baso # 0.0 K/mm3 (0.0-0.1) 09/21/16 09:45 Seg Neutrophils % 49.4 % (40.0-70.0) 09/21/16 09:45 Seg Neutrophils # 3.4 K/mm3 (1.8-7.7) 09/21/16 09:45 PT 13.0 Sec. (12.2-14.9) 09/21/16 09:45 INR 0.99 (0.87-1.13) 09/21/16 09:45 APTT 29.5 Sec. (24.2-36.6) 09/21/16 09:45 Sodium 138 mmol/L (137-145) 09/28/16 07:00 Potassium 4.0 mmol/L (3.6-5.0) 09/28/16 07:00 Chloride 97.9 mmol/L (98-107) L 09/28/16 07:00 Carbon Dioxide 26 mmol/L (22-30) 09/28/16 07:00 Anion Gap 18 mmol/L 09/28/16 07:00 BUN 20 mg/dL (9-20) 09/28/16 07:00 Creatinine 0.7 mg/dL (0.8-1.5) L 09/28/16 07:00 Estimated GFR > 60 ml/min 09/28/16 07:00 BUN/Creatinine Ratio 28.57 % 09/28/16 07:00 Glucose 101 mg/dL (75-100) H 09/28/16 07:00 Calcium 9.0 mg/dL (8.4-10.2) 09/28/16 07:00 Phosphorus 3.30 mg/dL (2.5-4.5) 09/22/16 08:39 Magnesium 2.00 mg/dL (1.7-2.3) 09/21/16 09:45 Total Bilirubin 0.40 mg/dL (0.1-1.2) 09/21/16 18:25 Direct Bilirubin < 0.2 mg/dL (0-0.2) 09/21/16 18:25 Indirect Bilirubin 0.2 mg/dL 09/21/16 18:25 AST 29 units/L (5-40) 09/21/16 18:25 ALT 17 units/L (7-56) 09/21/16 18:25 Alkaline Phosphatase 70 units/L (35-129) 09/21/16 18:25 Total Protein 6.3 g/dL (6.3-8.2) 09/21/16 18:25 Albumin 3.8 g/dL (3.9-5) L 09/21/16 18:25 Albumin/Globulin Ratio 1.5 % 09/21/16 18:25 Urine Color Straw (Yellow) 09/21/16 11:54 Urine Turbidity Clear (Clear) 09/21/16 11:54 Urine pH 6.0 (5.0-7.0) 09/21/16 11:54 Ur Specific [place] 1.010 (1.003-1.030) 09/21/16 11:54 Urine Protein <15 mg/dl mg/dL (Negative) 09/21/16 11:54 Urine Glucose (UA) Neg mg/dL (Negative) 09/21/16 11:54 Urine Ketones Neg mg/dL (Negative) 09/21/16 11:54 Urine Blood Neg (Negative) 09/21/16 11:54 Urine Nitrite Neg (Negative) 09/21/16 11:54 Urine Bilirubin Neg (Negative) 09/21/16 11:54 Urine Urobilinogen < 2.0 mg/dL (<2.0) 09/21/16 11:54 Ur Leukocyte Esterase Neg (Negative) 09/21/16 11:54 Urine WBC (Auto) 1.0 /HPF (0.0-6.0) 09/21/16 11:54 Urine RBC (Auto) 2.0 /HPF (0.0-6.0) 09/21/16 11:54 U Epithel Cells (Auto) < 1.0 /HPF (0-13.0) 09/21/16 11:54 Urine Mucus Few /HPF 09/21/16 11:54 Urine Opiates Screen Presumptive negative 09/21/16 11:54 Urine Methadone Screen Presumptive negative 09/21/16 11:54 Ur Barbiturates Screen Presumptive negative 09/21/16 11:54 Ur Phencyclidine Scrn Presumptive negative 09/21/16 11:54 Ur Amphetamines Screen Presumptive negative 09/21/16 11:54 U Benzodiazepines Scrn Presumptive positive 09/21/16 11:54 Urine Cocaine Screen Presumptive negative 09/21/16 11:54 U Marijuana (THC) Screen Presumptive negative 09/21/16 11:54 Drugs of Abuse Note Disclamer 09/21/16 11:54 Plasma/Serum Alcohol 0.45 gm% (0-0.07) H 09/21/16 09:45
[2016-09-29] MEDS: ATIVAN PO PRN (14:59)
[2016-09-29] MEDS: MOTRIN PO PRN ×2 (17:00→21:29)
--- NOTE | 2016-09-29 17:51 | Progress Note ---
Subjective - Reason for Consult Consult date: 09/29/16 Reason for consult: psychiatric follow up - Chief Complaint Chief complaint: "I had a rough night last night" 31 year old black male seen on the medical floor. Today patient is calm and cooperative during assessment. He describes medication to be minimally helpful for his sleep. He reports crying a night thinking about being a failure and expressed hopeless, helpless thoughts. He does not have a plan for suicide but is afraid he will if he does not get help. No current AVH's. Depressive symptoms persist. Mental Status Exam - Vital signs Last Vital Signs Temp 98.6 F 09/29/16 16:00 Pulse 84 09/29/16 16:00 Resp 20 09/29/16 16:00 BP 120/84 09/29/16 16:00 Pulse Ox 98 09/29/16 07:00 - Exam Narrative exam: MSE: Appearance: calm, cooperative Behavior: good eye contact Speech: regular rate and tone Mood: "not good" Affect: blunted Thought Process: linear Thought Content: hopeless/helpless thoughts. no SI plan. HI's and AVH's Motor Activity: lying down in bed Cognition: A/Ox3 Insight: fair Judgment: fair Assessment and Plan Assessment: No suicidal plan. No current alcohol withdrawal symptoms. Psychotic symptoms improved unspecified mood disorder alcohol use disorder, severe-alcohol withdrawal has been adequately treated and further detox is likely unnecessary. Recommend tapering librium by half total daily dose every 2 days until discontinued. Recommendation: 1013 and transfer to inpatient psych when medically cleared. Increase Risperdal to 2mg hs for mood/psychotic symptoms Continue trazodone to 100mg hs for sleep and seroquel. Plan to optimize the use of Seroquel for mood and sleep consolidation. Consider using seroquel instead of risperdal. He needs resources for food, utilities/housing He was given a list of non-profit rehabs such as [facility]. He needs to be aware of the types of services and programs available to him.
[2016-09-29] MEDS: FLEXERIL PO PRN (18:02)
[2016-09-29] MEDS: HABITROL TD SCH (18:39)
[2016-09-29] MEDS: RisperDAL PO SCH (21:30)
[2016-09-29] MEDS: LOVENOX SUB-Q SCH (21:30)
[2016-09-30] MEDS: NORCO 5/325 PO PRN ×3 (01:07→20:04)
[2016-09-30] MEDS: LIBRIUM PO SCH ×3 (06:26→21:34)
[2016-09-30] MEDS: MOTRIN PO PRN ×2 (06:27→16:35)
--- NOTE | 2016-09-30 08:53 | Progress Note ---
Subjective - Reason for Consult Consult date: 09/30/16 Reason for consult: Psychiatry Follow-up - Chief Complaint Chief complaint: "I feel okay" 31 year old black male seen on the medical floor. Today patient is calm and cooperative during assessment. He stated that he slept 4 hours last night , more than he have slept since his admission. He stated that he feel down often and was emotional last night. Per the staff, patient is completing his ADL's with no assistance needed or encouragement. He denies SI/HI's, AVH's or a poor appetite. He is concerned about the depression symptoms. Mental Status Exam - Vital signs Last Vital Signs Temp 98.1 F 09/29/16 22:00 Pulse 79 09/29/16 22:00 Resp 16 09/30/16 07:27 BP 106/68 09/29/16 22:00 Pulse Ox 99 09/29/16 22:00 - Exam Narrative exam: MSE: Appearance: calm, cooperative Behavior: good eye contact Speech: regular rate and tone Mood: "okay" Affect: congruent to mood Thought Process: linear Thought Content: denies SI/HI's and AVH's Motor Activity: lying down in bed Cognition: A/Ox3 Insight: fair Judgment: fair Assessment and Plan Impression: Alcohol Use DO/MDD. 31 year old black male seen on the medical floor. Today patient is calm and cooperative during assessment. He stated that he slept 4 hours last night , more than he have slept since his admission. He stated that he feel down often and was emotional last night. Per the staff, patient is completing his ADL's with no assistance needed or encouragement. No acute etoh withdrawals noted. Patient is no threat to self. Recommendation/Plan: Rescind 1013. Recommend discontinuing CIWA, day 10 of admission. He needs resources for food, utilities/housing. Discussed generalized coping skills with patients and the importance of abstaining from alcohol consumption. Given outpatient psy services for rehab ([facility]). Start Trazodone 50 mg PO HS for depression. Discussed possible suicidality and medication induced john reference antidepressants. Recommend D/Cing Haldol prn.
[2016-09-30] MEDS: TENORMIN PO SCH (10:17)
[2016-09-30] MEDS: KEPPRA PO SCH ×2 (10:18→21:34)
[2016-09-30] MEDS: ATIVAN PO PRN (12:17)
--- NOTE | 2016-09-30 14:09 | Progress Note ---
Assessment and Plan Assessment and plan: 1. Alcohol Intoxication - Resolved - patient is on CIKS protocol for alcohol withdrawal 2. Seizure - Likely alcohol withdrawal will continue [facility] 3.Psychosis - on risperdal and seroquel Psychiatric medications have been adjusted to help alleviate insomnia Psych input appreciated, continue 1013 4. Insomnia Psychiatric medications have been adjusted to help alleviate insomnia Patient is medical optimized for discharge to Psych facility History Interval history: Patient has been somewhat improved, he states that he still having insomnia and is having trouble sleeping Hospitalist Physical - Physical exam Narrative exam: General: Patient appears well in no distress HEENT: MMM, EOMI cardiac: S1-S2 heard lungs: clear to auscultation, abdomen: soft, nontender, nondistended bowel sounds positive extremities: no edema clubbing or cyanosis Skin: no rash or lesion Neuro: no focal deficit Psych: Pressured speech, otherwise cognition appears to be improving - Constitutional Vitals: Temp Pulse Resp BP Pulse Ox 98 F 86 18 129/80 98 09/30/16 08:00 09/30/16 08:00 09/30/16 08:00 09/30/16 10:17 09/30/16 08:00 General appearance: Present: no acute distress, well-nourished Results - Labs CBC & Chem 7: 09/28/16 07:00 09/28/16 07:00 Labs: Laboratory Last Values WBC 6.0 K/mm3 (4.5-11.0) 09/28/16 07:00 RBC 3.69 M/mm3 (3.65-5.03) 09/28/16 07:00 Hgb 12.3 gm/dl (11.8-15.2) 09/28/16 07:00 Hct 36.5 % (35.5-45.6) 09/28/16 07:00 MCV 99 fl (84-94) H 09/28/16 07:00 MCH 33 pg (28-32) H 09/28/16 07:00 MCHC 34 % (32-34) 09/28/16 07:00 RDW 13.0 % (13.2-15.2) L 09/28/16 07:00 Plt Count 183 K/mm3 (140-440) 09/28/16 07:00 Lymph % (Auto) 44.5 % (13.4-35.0) H 09/21/16 09:45 [place] % (Auto) 5.3 % (0.0-7.3) 09/21/16 09:45 Eos % (Auto) 0.6 % (0.0-4.3) 09/21/16 09:45 Baso % (Auto) 0.2 % (0.0-1.8) 09/21/16 09:45 Lymph # 3.0 K/mm3 (1.2-5.4) 09/21/16 09:45 [place] # 0.4 K/mm3 (0.0-0.8) 09/21/16 09:45 Eos # 0.0 K/mm3 (0.0-0.4) 09/21/16 09:45 Baso # 0.0 K/mm3 (0.0-0.1) 09/21/16 09:45 Seg Neutrophils % 49.4 % (40.0-70.0) 09/21/16 09:45 Seg Neutrophils # 3.4 K/mm3 (1.8-7.7) 09/21/16 09:45 PT 13.0 Sec. (12.2-14.9) 09/21/16 09:45 INR 0.99 (0.87-1.13) 09/21/16 09:45 APTT 29.5 Sec. (24.2-36.6) 09/21/16 09:45 Sodium 138 mmol/L (137-145) 09/28/16 07:00 Potassium 4.0 mmol/L (3.6-5.0) 09/28/16 07:00 Chloride 97.9 mmol/L (98-107) L 09/28/16 07:00 Carbon Dioxide 26 mmol/L (22-30) 09/28/16 07:00 Anion Gap 18 mmol/L 09/28/16 07:00 BUN 20 mg/dL (9-20) 09/28/16 07:00 Creatinine 0.7 mg/dL (0.8-1.5) L 09/28/16 07:00 Estimated GFR > 60 ml/min 09/28/16 07:00 BUN/Creatinine Ratio 28.57 % 09/28/16 07:00 Glucose 101 mg/dL (75-100) H 09/28/16 07:00 Calcium 9.0 mg/dL (8.4-10.2) 09/28/16 07:00 Phosphorus 3.30 mg/dL (2.5-4.5) 09/22/16 08:39 Magnesium 2.00 mg/dL (1.7-2.3) 09/21/16 09:45 Total Bilirubin 0.40 mg/dL (0.1-1.2) 09/21/16 18:25 Direct Bilirubin < 0.2 mg/dL (0-0.2) 09/21/16 18:25 Indirect Bilirubin 0.2 mg/dL 09/21/16 18:25 AST 29 units/L (5-40) 09/21/16 18:25 ALT 17 units/L (7-56) 09/21/16 18:25 Alkaline Phosphatase 70 units/L (35-129) 09/21/16 18:25 Total Protein 6.3 g/dL (6.3-8.2) 09/21/16 18:25 Albumin 3.8 g/dL (3.9-5) L 09/21/16 18:25 Albumin/Globulin Ratio 1.5 % 09/21/16 18:25 Urine Color Straw (Yellow) 09/21/16 11:54 Urine Turbidity Clear (Clear) 09/21/16 11:54 Urine pH 6.0 (5.0-7.0) 09/21/16 11:54 Ur Specific [place] 1.010 (1.003-1.030) 09/21/16 11:54 Urine Protein <15 mg/dl mg/dL (Negative) 09/21/16 11:54 Urine Glucose (UA) Neg mg/dL (Negative) 09/21/16 11:54 Urine Ketones Neg mg/dL (Negative) 09/21/16 11:54 Urine Blood Neg (Negative) 09/21/16 11:54 Urine Nitrite Neg (Negative) 09/21/16 11:54 Urine Bilirubin Neg (Negative) 09/21/16 11:54 Urine Urobilinogen < 2.0 mg/dL (<2.0) 09/21/16 11:54 Ur Leukocyte Esterase Neg (Negative) 09/21/16 11:54 Urine WBC (Auto) 1.0 /HPF (0.0-6.0) 09/21/16 11:54 Urine RBC (Auto) 2.0 /HPF (0.0-6.0) 09/21/16 11:54 U Epithel Cells (Auto) < 1.0 /HPF (0-13.0) 09/21/16 11:54 Urine Mucus Few /HPF 09/21/16 11:54 Urine Opiates Screen Presumptive negative 09/21/16 11:54 Urine Methadone Screen Presumptive negative 09/21/16 11:54 Ur Barbiturates Screen Presumptive negative 09/21/16 11:54 Ur Phencyclidine Scrn Presumptive negative 09/21/16 11:54 Ur Amphetamines Screen Presumptive negative 09/21/16 11:54 U Benzodiazepines Scrn Presumptive positive 09/21/16 11:54 Urine Cocaine Screen Presumptive negative 09/21/16 11:54 U Marijuana (THC) Screen Presumptive negative 09/21/16 11:54 Drugs of Abuse Note Disclamer 09/21/16 11:54 Plasma/Serum Alcohol 0.45 gm% (0-0.07) H 09/21/16 09:45
[2016-09-30] MEDS: HABITROL TD SCH (17:39)
[2016-09-30] MEDS: LOVENOX SUB-Q SCH (21:35)
[2016-09-30] MEDS ORDERED: DESYREL PO SCH (22:00)
[2016-10-01] MEDS: MOTRIN PO PRN (01:46)
[2016-10-01] MEDS: ATIVAN PO PRN ×2 (01:46→10:35)
[2016-10-01] MEDS: LIBRIUM PO SCH ×2 (05:48→14:29)
--- NOTE | 2016-10-01 07:08 | Progress Note ---
Assessment and Plan Assessment and plan: 1. Alcohol Intoxication - Resolved - patient is on CIPR protocol for alcohol withdrawal 2. Seizure - Likely alcohol withdrawal will continue [facility] 3.Psychosis - on risperdal and seroquel Psychiatric medications have been adjusted to help alleviate insomnia Psych input appreciated, continue 1013 4. Insomnia Psychiatric medications have been adjusted to help alleviate insomnia Patient is medical optimized for discharge to Psych facility History Interval history: Patient has been somewhat improved, he states that he still having insomnia and is having trouble sleeping Hospitalist Physical - Physical exam Narrative exam: General: Patient appears well in no distress HEENT: MMM, EOMI cardiac: S1-S2 heard lungs: clear to auscultation, abdomen: soft, nontender, nondistended bowel sounds positive extremities: no edema clubbing or cyanosis Skin: no rash or lesion Neuro: no focal deficit Psych: Pressured speech, otherwise cognition appears to be improving - Constitutional Vitals: Temp Pulse Resp BP Pulse Ox 98.4 F 80 18 115/74 97 09/30/16 22:00 09/30/16 22:00 09/30/16 22:00 09/30/16 22:00 09/30/16 22:00 General appearance: Present: no acute distress, well-nourished Results - Labs CBC & Chem 7: 09/28/16 07:00 09/28/16 07:00 Labs: Laboratory Last Values WBC 6.0 K/mm3 (4.5-11.0) 09/28/16 07:00 RBC 3.69 M/mm3 (3.65-5.03) 09/28/16 07:00 Hgb 12.3 gm/dl (11.8-15.2) 09/28/16 07:00 Hct 36.5 % (35.5-45.6) 09/28/16 07:00 MCV 99 fl (84-94) H 09/28/16 07:00 MCH 33 pg (28-32) H 09/28/16 07:00 MCHC 34 % (32-34) 09/28/16 07:00 RDW 13.0 % (13.2-15.2) L 09/28/16 07:00 Plt Count 183 K/mm3 (140-440) 09/28/16 07:00 Lymph % (Auto) 44.5 % (13.4-35.0) H 09/21/16 09:45 [place] % (Auto) 5.3 % (0.0-7.3) 09/21/16 09:45 Eos % (Auto) 0.6 % (0.0-4.3) 09/21/16 09:45 Baso % (Auto) 0.2 % (0.0-1.8) 09/21/16 09:45 Lymph # 3.0 K/mm3 (1.2-5.4) 09/21/16 09:45 [place] # 0.4 K/mm3 (0.0-0.8) 09/21/16 09:45 Eos # 0.0 K/mm3 (0.0-0.4) 09/21/16 09:45 Baso # 0.0 K/mm3 (0.0-0.1) 09/21/16 09:45 Seg Neutrophils % 49.4 % (40.0-70.0) 09/21/16 09:45 Seg Neutrophils # 3.4 K/mm3 (1.8-7.7) 09/21/16 09:45 PT 13.0 Sec. (12.2-14.9) 09/21/16 09:45 INR 0.99 (0.87-1.13) 09/21/16 09:45 APTT 29.5 Sec. (24.2-36.6) 09/21/16 09:45 Sodium 138 mmol/L (137-145) 09/28/16 07:00 Potassium 4.0 mmol/L (3.6-5.0) 09/28/16 07:00 Chloride 97.9 mmol/L (98-107) L 09/28/16 07:00 Carbon Dioxide 26 mmol/L (22-30) 09/28/16 07:00 Anion Gap 18 mmol/L 09/28/16 07:00 BUN 20 mg/dL (9-20) 09/28/16 07:00 Creatinine 0.7 mg/dL (0.8-1.5) L 09/28/16 07:00 Estimated GFR > 60 ml/min 09/28/16 07:00 BUN/Creatinine Ratio 28.57 % 09/28/16 07:00 Glucose 101 mg/dL (75-100) H 09/28/16 07:00 Calcium 9.0 mg/dL (8.4-10.2) 09/28/16 07:00 Phosphorus 3.30 mg/dL (2.5-4.5) 09/22/16 08:39 Magnesium 2.00 mg/dL (1.7-2.3) 09/21/16 09:45 Total Bilirubin 0.40 mg/dL (0.1-1.2) 09/21/16 18:25 Direct Bilirubin < 0.2 mg/dL (0-0.2) 09/21/16 18:25 Indirect Bilirubin 0.2 mg/dL 09/21/16 18:25 AST 29 units/L (5-40) 09/21/16 18:25 ALT 17 units/L (7-56) 09/21/16 18:25 Alkaline Phosphatase 70 units/L (35-129) 09/21/16 18:25 Total Protein 6.3 g/dL (6.3-8.2) 09/21/16 18:25 Albumin 3.8 g/dL (3.9-5) L 09/21/16 18:25 Albumin/Globulin Ratio 1.5 % 09/21/16 18:25 Urine Color Straw (Yellow) 09/21/16 11:54 Urine Turbidity Clear (Clear) 09/21/16 11:54 Urine pH 6.0 (5.0-7.0) 09/21/16 11:54 Ur Specific [place] 1.010 (1.003-1.030) 09/21/16 11:54 Urine Protein <15 mg/dl mg/dL (Negative) 09/21/16 11:54 Urine Glucose (UA) Neg mg/dL (Negative) 09/21/16 11:54 Urine Ketones Neg mg/dL (Negative) 09/21/16 11:54 Urine Blood Neg (Negative) 09/21/16 11:54 Urine Nitrite Neg (Negative) 09/21/16 11:54 Urine Bilirubin Neg (Negative) 09/21/16 11:54 Urine Urobilinogen < 2.0 mg/dL (<2.0) 09/21/16 11:54 Ur Leukocyte Esterase Neg (Negative) 09/21/16 11:54 Urine WBC (Auto) 1.0 /HPF (0.0-6.0) 09/21/16 11:54 Urine RBC (Auto) 2.0 /HPF (0.0-6.0) 09/21/16 11:54 U Epithel Cells (Auto) < 1.0 /HPF (0-13.0) 09/21/16 11:54 Urine Mucus Few /HPF 09/21/16 11:54 Urine Opiates Screen Presumptive negative 09/21/16 11:54 Urine Methadone Screen Presumptive negative 09/21/16 11:54 Ur Barbiturates Screen Presumptive negative 09/21/16 11:54 Ur Phencyclidine Scrn Presumptive negative 09/21/16 11:54 Ur Amphetamines Screen Presumptive negative 09/21/16 11:54 U Benzodiazepines Scrn Presumptive positive 09/21/16 11:54 Urine Cocaine Screen Presumptive negative 09/21/16 11:54 U Marijuana (THC) Screen Presumptive negative 09/21/16 11:54 Drugs of Abuse Note Disclamer 09/21/16 11:54 Plasma/Serum Alcohol 0.45 gm% (0-0.07) H 09/21/16 09:45
[2016-10-01] MEDS: NORCO 5/325 PO PRN (08:23)
[2016-10-01] MEDS: KEPPRA PO SCH (10:28)
[2016-10-01] MEDS: TENORMIN PO SCH (10:28)
[2016-10-01] MEDS: FLEXERIL PO PRN (10:35)
--- NOTE | 2016-10-01 13:42 | Discharge Summary ---
Providers - Providers Date of Admission: 09/21/16 15:24 Attending physician: ROWENA MEHTA MD Primary care physician: [employer] Hospitalization Condition: Fair Hospital course: Patient came in to Ed for ETOH intoxication. He went on to have alcohol withdrawal, he was treated with CIWA protocol, he was also seen by psychiatry for psychosis, he medications were adjusted, he was put on 1013, and when he was thought to be safe was taking up to 1013. For seizure disorder he received Ativan and Keppra, he does have a history of seizure disorder, however the acute seizures most likely due to alcohol withdrawal. His psychiatric medications were adjusted to help alleviate insomnia. Patient was deemed safe by psychiatry prior to discharge, he noted his symptoms had improved. He was on an alcohol withdrawal time of discharge Discharge diagnoses 1. Alcohol Intoxication 2. Seizure 3.Psychosis 4. Insomnia Disposition: DISCHARGED TO HOME OR SELFCARE Time spent for discharge: 35 minutes Core Measure Documentation - Palliative Care Palliative Care/ Comfort Measures: Not Applicable - Core Measures Any of the following diagnoses?: none Exam - Physical Exam Narrative exam: General: Patient appears well in no distress HEENT: MMM, EOMI cardiac: S1-S2 heard lungs: clear to auscultation, abdomen: soft, nontender, nondistended bowel sounds positive extremities: no edema clubbing or cyanosis Skin: no rash or lesion Neuro: no focal deficit Psych: Mood and behavior cognition is intact - Constitutional Vitals: Temp Pulse Resp BP Pulse Ox 97.8 F 82 16 127/86 99 10/01/16 08:00 10/01/16 08:00 10/01/16 10:00 10/01/16 10:28 10/01/16 08:00 Plan Follow up with: PRIMARY CAREMD [Primary Care Provider] - 3-5 Days Prescriptions: traZODone [Desyrel] 50 mg PO QHS #30 tablet Atenolol [Tenormin] 25 mg PO QDAY #30 tablet Folic Acid [Folvite] 1 mg PO QDAY #30 tablet HYDROcodone/APAP 5-325 [[place] 5-325 mg TAB] 2 each PO Q6H PRN #14 tablet PRN Reason: Pain, Moderate (4-6) Nicotine [Habitrol] 21 mg TD Q24H #30 patch Thiamine [Vitamin B-1] 100 mg PO QDAY #30 tablet
[2016-10-01 16:32] VITALS: BP 128/74
--- NOTE | 2016-10-01 16:46 | Progress Note ---
Subjective - Reason for Consult Consult date: 10/01/16 Reason for consult: psychiatric follow up - Chief Complaint Chief complaint: "I am scared" 31 year old black male seen on the medical floor. Today patient is calm and cooperative during assessment. He denies SI but is concerned about going back into the same environment. Per the staff, patient is completing his ADL's with no assistance needed or encouragement. He denies SI/HI's, AVH's or a poor appetite. He is concerned about the depression symptoms. He voiced wanting to find a laborer [facility] rehab. He was provided with information. He has not had access to a phone until now. His 1013 has . Mental Status Exam - Vital signs Last Vital Signs Temp 98.0 F 10/01/16 16:31 Pulse 88 10/01/16 16:31 Resp 16 10/01/16 16:31 BP 128/74 10/01/16 16:31 Pulse Ox 99 10/01/16 16:31 - Exam Narrative exam: MSE: Appearance: calm, cooperative Behavior: good eye contact Speech: regular rate and tone Mood: "ok" Affect: blunted Thought Process: linear Thought Content: helpless thoughts. no SI, no HI's and no AVH's Motor Activity: within normal limits Cognition: A/Ox3 Insight: fair Judgment: fair Assessment and Plan Impression: Alcohol Use DO/MDD. 31 year old black male seen on the medical floor. Today patient is calm and cooperative during assessment. There are no acute safety concerns. Recommendation/Plan: 1013 will not be renewed. Recommend discontinuing CIWA, day 10 of admission. He needs resources for food, utilities/housing.-discussed with social work lecturer Discussed importance of abstaining from alcohol consumption. Recommend AA meetings, obtain a sponsor Given outpatient psy services for rehab ([facility]). Recommend continuing psychiatric medications on discharge He is at risk for withdrawal from benzodiazepines since he has been taking Ativan and Librium throughout his stay. Recommend tapering.
== END 2016-10-01 16:25 | disposition home or self-care (01) | DRG 897 ==
LOC: ED 01:24 → 3A 15:24
PROVIDERS: ADMIT Internal Medicine; ATTEND Internal Medicine
DX: F10.129 Alcohol abuse with intoxication, unspecified (principal); E87.0 Hyperosmolality and hypernatremia; F32.3 Major depressive disorder, single episode, severe with psychotic features; M25.521 Pain in right elbow; M25.562 Pain in left knee; R56.9 Unspecified convulsions; F39 Unspecified mood [affective] disorder; F17.200 Nicotine dependence, unspecified, uncomplicated; Z71.41 Alcohol abuse counseling and surveillance of alcoholic; Z82.49 Family history of ischemic heart disease and other diseases of the circulatory system
CPT/HCPCS: 36415; 70450; 71010; 80048; 80074; 80307; 80320; 81001; 83735; 84100; 85025; 85027; 85610; 85730; 93005; 93010; 96365; 96366; 96375; 99406; C9113; G0480; J1630; J1650; J3411; J7030

== ENCOUNTER 2017-01-19 20:09 | Emergency (ER) | payer OTHER ==
[2017-01-19] MEDS ORDERED: NACL 0.9% 1000 ML 1,000 ML IV ONE (21:33)
[2017-01-19 21:50] LABS: Basophils % (Auto) 0.3 % (0.0-1.8); Eosinophils % (Auto) 0.3 % (0.0-4.3); Hematocrit 35.8 % (35.5-45.6); Hemoglobin 12.4 gm/dl (11.8-15.2); Mean Corpuscular HGB Conc 35 % (32-34); Mean Corpuscular Hemoglobin 35 pg (28-32); Mean Corpuscular Volume 100 fl (84-94); Platelet Count 404 K/mm3 (140-440); Red Blood Count 3.58 M/mm3 (3.65-5.03); Red Cell Distribution Width 14.3 % (13.2-15.2); White Blood Count 4.1 K/mm3 (4.5-11.0)
[2017-01-19 22:09] LABS: Alanine Aminotransferase 46 units/L (7-56); Albumin 4.3 g/dL (3.9-5); Albumin/Globulin Ratio 1.4 %; Alkaline Phosphatase 115 units/L (35-129); Anion Gap 25 mmol/L; BUN/Creatinine Ratio 21.25; Blood Urea Nitrogen 17 mg/dL (9-20); Calcium 8.5 mg/dL (8.4-10.2); Carbon Dioxide 22 mmol/L (22-30); Chloride 100.2 mmol/L (98-107); Glucose 98 mg/dL (75-100); Lipase 18 units/L (13-60); Potassium 4.4 mmol/L (3.6-5.0); Sodium 143 mmol/L (137-145); Total Protein 7.4 g/dL (6.3-8.2)
[2017-01-19] MEDS ORDERED: ZOFRAN IV ONE (22:35)
[2017-01-19] MEDS ORDERED: VALIUM IV ONE (22:35)
[2017-01-19] MEDS ORDERED: NORMODYNE IV ONE (22:36)
[2017-01-19 23:26] LABS: Bilirubin,Urine NEG (Negative); Blood,Urine SM (Negative); Ketones,Urine NEG (Negative); Leukocyte Esterase,Urine NEG (Negative); Mucus,Urine FEW /HPF; Nitrite,Urine NEG (Negative); Urobilinogen,Urine < 2.0 mg/dL (<2.0)
--- NOTE | 2017-01-20 | Emergency Department Report ---
HPI - General Chief Complaint: Alcohol Time Seen by Provider: 01/19/17 21:31 - HPI HPI: The patient is a 31-year-old male presents for evaluation of abdominal pain and fatigue. The patient reports 2-3 days of upper abdominal pain, on and off, crampy in quality, currently 5/10 in severity, exacerbated with vomiting. He also complains of difficulty sleeping for the past 2-3 days he believes secondary to decreased alcohol usage. He shares that he has a history of hepatitis. He has a tertiary complaint of darkened orange-reddish urine during the past 1 day. The patient denies fever, chills, night sweats, diarrhea, blood in the stool, dark tarry stool, dysuria, flank pain, genital discharge, inability to pass flatus. ED Past Medical Hx - Past Medical History Previous Medical History?: Yes Hx Congestive Heart Failure: No Hx Diabetes: No Hx Seizures: Yes Hx Asthma: No Hx COPD: No Additional medical history: alcohol abuse - Surgical History Past Surgical History?: No Additional Surgical History: LEFT 5TH DIGIT - Social History Smoking Status: Unknown if ever smoked Substance Use Type: Alcohol, Marijuana - Medications Home Medications: Home Medications Medication Instructions Recorded Confirmed Last Taken Type levETIRAcetam [Keppra TAB] 500 mg PO BID #60 tablet 08/20/16 09/21/16 09/21/16 Rx Atenolol [Tenormin] 25 mg PO QDAY #30 tablet 10/01/16 Unknown Rx Folic Acid [Folvite] 1 mg PO QDAY #30 tablet 10/01/16 Unknown Rx HYDROcodone/APAP 5-325 [[place] 2 each PO Q6H PRN #14 tablet 10/01/16 Unknown Rx 5-325 mg TAB] Nicotine [Habitrol] 21 mg TD Q24H #30 patch 10/01/16 Unknown Rx Thiamine [Vitamin B-1] 100 mg PO QDAY #30 tablet 10/01/16 Unknown Rx traZODone [Desyrel] 50 mg PO QHS #30 tablet 10/01/16 Unknown Rx Ibuprofen [Motrin] 600 mg PO Q8H PRN #20 tablet 01/19/17 Unknown Rx cloNIDine [Catapres] 0.2 mg PO BID #20 tablet 01/19/17 Unknown Rx ED Review of Systems ROS: Stated complaint: INSOMNIA Other details as noted in HPI Constitutional: Reports tiredness denies: fever ENT: denies: throat or neck pain Respiratory: denies: cough, shortness of breath Cardiovascular: denies: chest pain Endocrine: denies unexplained weight loss or gain Gastrointestinal: reports abdominal pain, nausea Genitourinary: denies: dysuria Musculoskeletal: denies: leg swelling Skin: denies: rash Neurological: denies: headache Hematological/Lymphatic: denies: easy bleeding or easy bruising Psych: denies sadness or hopelessness Physical Exam - Physical Exam Vital Signs: Vital Signs 01/19/17 20:36 Temperature 98.6 F Pulse Rate 104 H Respiratory 18 Rate Blood Pressure 146/104 O2 Sat by Pulse 98 Oximetry Physical Exam: General: well-nourished, well-developed, no acute distress Head: Normocephalic, atraumatic Eyes: normal sclera ENT: Mucous membranes are pale and dry Neck: No neck stiffness, no cervical adenopathy Respiratory: Breath sounds equal bilaterally, no wheezing, rales, or rhonchi Cardio: S1 and S2 present, no murmurs, rubs, gallops, capillary refill is delayed Abdomen: Normoactive bowel sounds, soft abdomen, left upper quadrant and right upper quadrant tenderness to palpation present, no rigidity, no guarding or rebound tenderness Musc: No pitting edema Skin: No rash Neuro: no facial drooping, normal speech Psych: Normal affect ED Course Vital Signs 01/19/17 20:36 Temperature 98.6 F Pulse Rate 104 H Respiratory 18 Rate Blood Pressure 146/104 O2 Sat by Pulse 98 Oximetry ED Medical Decision Making - Lab Data Result diagrams: 01/19/17 21:37 01/19/17 21:37 - Medical Decision Making The patient was seen and examined by myself. The patient is placed on a reservations agent and continuous pulse ox. On initial evaluation, the patient was found to be in no distress. Evaluation orders are placed. IV access is established and the patient is given 1 L normal saline fluid bolus for treatment of his dehydration, and Zofran for nausea, and IV valium for his pain. Lab results revealed a mildly elevated total bilirubin and AST, consistent with no history of alcoholic liver disease, and otherwise labs were non-concerning including WBC, hemoglobin, hematocrit, electrolytes, renal function, lipase, and urinalysis. The patient was reevaluated and reported that their symptoms were markedly improved. The patient is stable for discharge with outpatient follow-up. The patient is given follow-up and return instructions. The patient expressed understanding and agreed with the plan. The patient is discharged in stable condition. - Differential Diagnosis gastritis/PUD, gerd, pancreatitis, appendicitis, colitis, GB stones Critical care attestation.: If time is entered above; I have spent that time in minutes in the direct care of this critically ill patient, excluding procedure time. ED Disposition Clinical Impression: Dehydration, mild, Acute abdominal pain in left lower quadrant, Acute abdominal pain in right upper quadrant, Tiredness Disposition: - TO HOME OR SELFCARE Is pt being admited?: No Does the pt Need Aspirin: No Condition: Stable Instructions: Dehydration (ED), Alcohol Withdrawal (ED), Abdominal Pain (ED), Fatigue (ED) Prescriptions: cloNIDine [Catapres] 0.2 mg PO BID #20 tablet Ibuprofen [Motrin] 600 mg PO Q8H PRN #20 tablet PRN Reason: Pain Referrals: PRIMARY CARE, [Primary Care Provider] - 3-5 Days Time of Disposition: 23:48
[2017-01-20 06:03] VITALS: BP 135/93
== END 2017-01-20 06:45 | disposition home or self-care (01) ==
LOC: ED 20:09
DX: R10.11 Right upper quadrant pain (principal); R10.32 Left lower quadrant pain; E86.0 Dehydration; R53.83 Other fatigue; R56.9 Unspecified convulsions; F12.10 Cannabis abuse, uncomplicated
CPT/HCPCS: 36415; 80053; 81001; 83690; 84439; 84443; 85025; 96361; 96374; 96375; 99284; J2405; J3360; J7030

== ENCOUNTER 2021-06-29 09:07 | Emergency (ER) | payer SELFPAY ==
[2021-06-29] MEDS ORDERED: ZIPRASIDONE MESYLATE 20 MG VIAL IM ONE (09:19)
--- NOTE | 2021-06-29 09:19 | Emergency Department Report ---
ED Psych HPI - General Chief Complaint: Psych Stated Complaint: HALLUCINATIONS Time Seen by Provider: 06/29/21 09:17 Source: police Mode of arrival: Ambulatory - History of Present Illness Initial Comments: Patient was brought in by police because of paranoia. His mother called police because the patient was noncompliant with medication. He has been paranoid. He believes multiple people are out to get him an aspirin. He has gotten to the point that he cannot even talk or comprehend he is still paranoid. He has been tearful and crying states that we know why he is here and states that people are after him. Police did walk him in. Patient states that he does need help and wants help. He denies being suicidal. - Related Data Previous Rx's Medication Instructions Recorded Last Taken Type levETIRAcetam [Keppra TAB] 500 mg PO BID #60 tablet 08/20/16 09/21/16 Rx Folic Acid [Folvite] 1 mg PO QDAY #30 tablet 10/01/16 Unknown Rx HYDROcodone/APAP 5-325 [[place] 2 each PO Q6H PRN #14 tablet 10/01/16 Unknown Rx 5-325 mg TAB] Nicotine [Habitrol] 21 mg TD Q24H #30 patch 10/01/16 Unknown Rx Thiamine [Vitamin B-1] 100 mg PO QDAY #30 tablet 10/01/16 Unknown Rx atenoloL [Tenormin] 25 mg PO QDAY #30 tablet 10/01/16 Unknown Rx traZODone [Desyrel] 50 mg PO QHS #30 tablet 10/01/16 Unknown Rx Ibuprofen [Motrin] 600 mg PO Q8H PRN #20 tablet 01/19/17 Unknown Rx cloNIDine [Catapres] 0.2 mg PO BID #20 tablet 01/19/17 Unknown Rx Allergies Allergy/AdvReac Type Severity Reaction Status Date / Time No Known Allergies Allergy Verified 08/30/16 06:19 ED Review of Systems ROS: Stated complaint: HALLUCINATIONS Other details as noted in HPI Comment: Unobtainable due to pts medical conditions (Patient is tearful and fixated on people being after him. He will not answer questions appropriately.) ED Past Medical Hx - Past Medical History Hx Congestive Heart Failure: No Hx Diabetes: No Hx Seizures: Yes Hx Asthma: No Hx COPD: No Additional medical history: alcohol abuse - Surgical History Additional Surgical History: LEFT 5TH DIGIT - Social History Smoking Status: Unknown if ever smoked Substance Use Type: Alcohol, Marijuana - Medications Home Medications: Home Medications Medication Instructions Recorded Confirmed Last Taken Type levETIRAcetam [Keppra TAB] 500 mg PO BID #60 tablet 08/20/16 09/21/16 09/21/16 Rx Folic Acid [Folvite] 1 mg PO QDAY #30 tablet 10/01/16 Unknown Rx HYDROcodone/APAP 5-325 [[place] 2 each PO Q6H PRN #14 tablet 10/01/16 Unknown Rx 5-325 mg TAB] Nicotine [Habitrol] 21 mg TD Q24H #30 patch 10/01/16 Unknown Rx Thiamine [Vitamin B-1] 100 mg PO QDAY #30 tablet 10/01/16 Unknown Rx atenoloL [Tenormin] 25 mg PO QDAY #30 tablet 10/01/16 Unknown Rx traZODone [Desyrel] 50 mg PO QHS #30 tablet 10/01/16 Unknown Rx Ibuprofen [Motrin] 600 mg PO Q8H PRN #20 tablet 01/19/17 Unknown Rx cloNIDine [Catapres] 0.2 mg PO BID #20 tablet 01/19/17 Unknown Rx ED Physical Exam - General Limitations: Altered Mental Status, Other (Pulse ox noted and normal) General appearance: alert, in no apparent distress, other (Agitated and tearful) - Head Head exam: Present: atraumatic, normocephalic - Eye Eye exam: Present: normal appearance, EOMI - ENT ENT exam: Present: normal orophraynx, normal external ear exam - Neck Neck exam: Present: normal inspection. Absent: meningismus - Respiratory Respiratory exam: Present: normal lung sounds bilaterally. Absent: respiratory distress - Cardiovascular Cardiovascular Exam: Present: regular rate, normal rhythm - GI/Abdominal GI/Abdominal exam: Present: soft. Absent: tenderness - Extremities Exam Extremities exam: Present: normal capillary refill - Back Exam Back exam: Present: full ROM. Absent: CVA tenderness (R), CVA tenderness (L) - Neurological Exam Neurological exam: Present: alert, altered, normal gait, reflexes normal - Psychiatric Psychiatric exam: Present: anxious, other (Tearful) - Skin Skin exam: Present: warm, dry ED Course Vital Signs 06/29/21 06/29/21 09:18 11:08 Temperature 98.5 F 98.7 F Pulse Rate 60 115 H Respiratory 14 16 Rate Blood Pressure 104/78 110/62 [Right] O2 Sat by Pulse 94 96 Oximetry - Reevaluation(s) Reevaluation #1: 06/29/21 09:18 Police were met upon arrival. 1013 was started. Old records reviewed. Labs ordered. Reevaluation #2: 06/29/21 11:45 Labs have been reviewed. Psychiatric evaluation is pending. Reevaluation #3: 06/29/21 12:34 Patient has been cleared from a medical perspective. Psychiatric services has seen the patient and believe that admission is appropriate. He will be maintai landy on a hold while we await psychiatric disposition and placement. Urine drug screen would not change or alter his current disposition. ED Medical Decision Making - Lab Data Result diagrams: 06/29/21 09:34 06/29/21 09:34 - Medical Decision Making Patient presented with altered mental status, paranoia, and evidence of acute psychiatric decompensation. He was not suicidal or homicidal. He was placed on a hold. He has been seen by psychiatric services and we are working on placement. Critical Care Time: No Critical care attestation.: If time is entered above; I have spent that time in minutes in the direct care of this critically ill patient, excluding procedure time. ED Disposition Clinical Impression: Paranoia Disposition: 30 STILL A PATIENT Is pt being admited?: No Condition: Stable Referrals: PRIMARY CARE, [Primary Care Provider] - 3-5 Days
[2021-06-29 09:59] LABS: Basophils % (Auto) 0.6 % (0.0-1.8); Eosinophils % (Auto) 0.9 % (0.0-4.3); Hematocrit 37.8 % (35.5-45.6); Hemoglobin 13.2 gm/dl (11.8-15.2); Lymphocytes # (Auto) 1.4 K/mm3 (1.2-5.4); Lymphocytes % (Auto) 26.5 % (13.4-35.0); Mean Corpuscular HGB Conc 35 % (32-34); Mean Corpuscular Volume 94 fl (84-94); Monocytes # (Auto) 0.2 K/mm3 (0.0-0.8); Monocytes % (Auto) 4.8 % (0.0-7.3); Platelet Count 249 K/mm3 (140-440); Red Cell Distribution Width 12.8 % (13.2-15.2)
[2021-06-29 10:17] LABS: Alanine Aminotransferase 11 units/L (7-56); Albumin 4.9 g/dL (3.9-5); BUN/Creatinine Ratio 17; Blood Urea Nitrogen 24 mg/dL (9-20); Calcium 9.9 mg/dL (8.4-10.2); Hemolysis Index 25
--- NOTE | 2021-06-29 11:53 | Consultation ---
History of Present Illness - Reason for Consult Consult date: 06/29/21 Reason for consult: psychosis - History of Present Psychiatric Illness The patient was seen today. He presented to the ER for paranoia, thinking several people are after him tying to give him an aspirin. During my evaluation the patient was seen lying on the floor. He then sits up with his head down. He does not look at me or respond appropriately to me speaking to him. He says "huh-huh" each time I ask him a question. The staff nurse states the patient was just administered Geodon. PAST PSYCHIATRIC HISTORY Unable to assess PAST MEDICAL HISTORY: Asthma, diabetes Family Psychiatric History: None reported SOCIAL HISTORY Unable to assess REVIEW OF SYSTEMS Unable to assess MENTAL STATUS EXAMINATION Unable to assess Assessment and Plan (1) Acute Psychosis Current Visit: Yes Status: Acute RECOMMENDATIONS 1013 Start Risperidone 0.5mg po BID Start Doxepin 10mg po qhs Start Vistaril 50mg po BID Risks, benefits and alternatives of medications discussed with the patient, questions answered and consent obtained from patient. PSYCHOTHERAPY: Supportive psychotherapy provided MEDICAL: Per primary team DELIRIUM PRECAUTIONS: Please re-orient patient frequently, keep lights on during the day, and minimize benzodiazepines and opiates as these medications could worsen patient's confusion. 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 Please contact with any questions and/or concerns. Case staffed with Dr. Gann Medications and Allergies Allergies Allergy/AdvReac Type Severity Reaction Status Date / Time No Known Allergies Allergy Verified 08/30/16 06:19 Home Medications Medication Instructions Recorded Confirmed Last Taken Type levETIRAcetam [Keppra TAB] 500 mg PO BID #60 tablet 08/20/16 09/21/16 09/21/16 Rx Folic Acid [Folvite] 1 mg PO QDAY #30 tablet 10/01/16 Unknown Rx HYDROcodone/APAP 5-325 [[place] 2 each PO Q6H PRN #14 tablet 10/01/16 Unknown Rx 5-325 mg TAB] Nicotine [Habitrol] 21 mg TD Q24H #30 patch 10/01/16 Unknown Rx Thiamine [Vitamin B-1] 100 mg PO QDAY #30 tablet 10/01/16 Unknown Rx atenoloL [Tenormin] 25 mg PO QDAY #30 tablet 10/01/16 Unknown Rx traZODone [Desyrel] 50 mg PO QHS #30 tablet 10/01/16 Unknown Rx Ibuprofen [Motrin] 600 mg PO Q8H PRN #20 tablet 01/19/17 Unknown Rx cloNIDine [Catapres] 0.2 mg PO BID #20 tablet 01/19/17 Unknown Rx Mental Status Exam - Vital signs Last Vital Signs Temp 98.7 F 06/29/21 11:08 Pulse 115 H 06/29/21 11:08 Resp 16 06/29/21 11:08 BP 110/62 06/29/21 11:08 Pulse Ox 96 06/29/21 11:08 Results Result Diagrams: 06/29/21 09:34 06/29/21 09:34 Abnormal lab results 06/29/21 06/29/21 Range/Units 09:34 09:34 MCH 33 H (28-32) pg MCHC 35 H (32-34) % RDW 12.8 L (13.2-15.2) % Carbon Dioxide 19 L (22-30) mmol/L BUN 24 H (9-20) mg/dL Creatinine 1.4 H (0.8-1.3) mg/dL Glucose 120 H (75-100) mg/dL All other labs normal.
[2021-06-29] MEDS: risperiDONE 0.25 MG TAB PO SCH (13:49)
[2021-06-29 22:19] LABS: Bilirubin,Urine NEG (Negative); Blood,Urine NEG (Negative); Color,Urine Yellow (Yellow); Hyaline Casts,Urine 5 /LPF; Mucus,Urine 3+ /HPF; Urobilinogen,Urine < 2.0 mg/dL (<2.0)
[2021-06-30] MEDS: risperiDONE 0.25 MG TAB PO SCH ×2 (00:06→10:06)
[2021-06-30] MEDS: DOXEPIN 10 MG CAP PO SCH ×2 (00:06→23:11)
[2021-06-30 00:38] LABS: Amphetamine Screen,Urine PRESUMPTIVE POSITIVE; Benzodiazepines Screen,Urine PRESUMPTIVE NEGATIVE; Cannabinoid Screen,Urine PRESUMPTIVE POSITIVE; Cocaine Screen,Urine PRESUMPTIVE NEGATIVE; Methadone Screen,Urine PRESUMPTIVE POSITIVE; Opiate Screen,Urine PRESUMPTIVE NEGATIVE
--- NOTE | 2021-06-30 11:01 | Progress Note ---
Subjective - Reason for Consult Consult date: 06/30/21 Reason for consult: psychosis - Chief Complaint Chief complaint: The patient was seen today. He is paranoid and delusional. He says people are spying on him and nobody believes him. The patient "it's everybody. They are watching me." He says people think he sees and hears things. He says "I know what I see and hear are real." I ask the patient what did he hear and see. He says "a lot of chattering. I don't know what they are saying." He says "I know what I see and it's real." He denies SI/HI. He says "I just want to be normal." REVIEW OF SYSTEMS Unable to assess MENTAL STATUS EXAMINATION Unable to assess Assessment and Plan (1) Acute Psychosis Current Visit: Yes Status: Acute RECOMMENDATIONS 1013 Increase Risperidone 1mg po BID Doxepin 10mg po qhs Vistaril 50mg po BID Risks, benefits and alternatives of medications discussed with the patient, questions answered and consent obtained from patient. PSYCHOTHERAPY: Supportive psychotherapy provided MEDICAL: Per primary team DELIRIUM PRECAUTIONS: Please re-orient patient frequently, keep lights on during the day, and minimize benzodiazepines and opiates as these medications could worsen patient's confusion. 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 Please contact with any questions and/or concerns. Case staffed with Dr. Gann Mental Status Exam - Vital signs Last Vital Signs Temp 98.2 F 06/30/21 08:45 Pulse 98 H 06/30/21 08:45 Resp 16 06/30/21 08:45 BP 124/74 06/30/21 08:45 Pulse Ox 98 06/30/21 08:45
--- NOTE | 2021-06-30 11:23 | Emergency Department Report ---
Blank Doc - Documentation Documentation: Patient had no events about the course of the night. He is requesting a phone call to call his mother. We are still awaiting a psychiatric disposition. He will be continued on current medications.
[2021-06-30] MEDS: risperiDONE 1 MG TAB PO SCH (23:11)
[2021-07-01 09:19] VITALS: BP 100/60
[2021-07-01] MEDS: risperiDONE 1 MG TAB PO SCH (09:52)
--- NOTE | 2021-07-01 13:28 | Event Note ---
Date: 07/01/21 S: No events reported overnight O: Vital Signs - 8 hr 07/01/21 07/01/21 09:18 09:56 Temperature 97.2 F L Pulse Rate 94 H Respiratory 18 Rate Blood Pressure 100/60 [Right] O2 Sat by Pulse 97 97 Oximetry A: Acute psychosis P: 1013/awaiting inpatient psych
== END 2021-07-01 15:40 ==
LOC: ED 09:07
DX: F22 Delusional disorders (principal); F17.200 Nicotine dependence, unspecified, uncomplicated; F12.90 Cannabis use, unspecified, uncomplicated; Z20.822 Contact with and (suspected) exposure to COVID-19; Z79.899 Other long term (current) drug therapy
CPT/HCPCS: 36415; 80053; 80307; 81001; 85025; 96372; 99285; J3486; Q0177; U0003; 80320; 99284; G0480

== ENCOUNTER 2021-10-31 14:30 | Emergency (ER) | payer SELFPAY ==
--- NOTE | 2021-10-31 14:40 | Emergency Department Report ---
Chief Complaint: Seizure Stated Complaint: SEIZURE,CHEST PAIN Time Seen by Provider: 10/31/21 14:36 - HPI History of Present Illness: Few day history of worsening chest pain and bilateral lower extremity edema. States that he also had a seizure last night unwitnessed. He states that he has not taken medication for seizures in several years. - ROS Review of Systems: Complains of chest pain, generalized fatigue, lower extremity edema. - Exam Vital Signs: Vital Signs 10/31/21 14:34 Temperature 98.6 F Pulse Rate 88 Respiratory 18 Rate Blood Pressure 134/79 O2 Sat by Pulse 96 Oximetry Physical Exam: Alert and oriented x3 moving all extremities well. MSE screening note: Focused history and physical exam performed. Due to findings the following was ordered: CBC CMP BNP chest x-ray EKG ED Disposition for MSE Condition: Stable
--- NOTE | 2021-10-31 15:23 | XRay Report ---
CHEST 2 VIEWS INDICATION / CLINICAL INFORMATION: chest pain. COMPARISON: 09/21/2016 FINDINGS: SUPPORT DEVICES: None. HEART / MEDIASTINUM: No significant abnormality. LUNGS / PLEURA: No significant pulmonary or pleural abnormality. No pneumothorax. ADDITIONAL FINDINGS: No significant additional findings. IMPRESSION: 1. No acute findings. No interval change. Signer Name: Malena Hawkins MD Signed: 10/31/2021 3:18 PM Workstation Name: [id number]
[2021-10-31 15:28] LABS: Hematocrit 30.5 % (35.5-45.6); Hemoglobin 9.9 gm/dl (11.8-15.2); Mean Corpuscular HGB Conc 33 % (32-34); Mean Corpuscular Volume 104 fl (84-94); Platelet Count 371 K/mm3 (140-440); Red Blood Count 2.93 M/mm3 (3.65-5.03); Red Cell Distribution Width 15.1 % (13.2-15.2)
[2021-10-31 15:55] LABS: Alanine Aminotransferase 164 units/L (7-56); Albumin 4.2 g/dL (3.9-5); BUN/Creatinine Ratio 16; Blood Urea Nitrogen 13 mg/dL (9-20); Hemolysis Index 10
[2021-10-31] MEDS ORDERED: FAMOTIDINE 20 MG/2 ML INJ IV ONE (20:09)
[2021-10-31] MEDS ORDERED: FUROSEMIDE 40 MG/4 ML INJ IV ONE (20:09)
[2021-10-31] MEDS ORDERED: levETIRAcetam 1000 MG/NS 0.75% 1,000 MG/100 ML BAG IV ONE (20:09)
[2021-10-31] MEDS ORDERED: POTASSIUM CHLORIDE ER 20 MEQ TAB PO ONE (20:09)
[2021-10-31] MEDS ORDERED: LORazepam 2 MG/ML VIAL IV PRN ×2 (20:17)
--- NOTE | 2021-10-31 20:17 | Emergency Department Report ---
ED Seizure HPI - General Chief Complaint: Seizure Stated Complaint: SEIZURE,CHEST PAIN Time Seen by Provider: 10/31/21 14:36 Source: patient Mode of arrival: Ambulatory Limitations: No Limitations - History of Present Illness Initial Comments: 36-year-old male with history of alcohol abuse presents to the hospital with multiple complaints. Patient had a seizure last night. It was unwitnessed. Patient woke up on the floor. States that he felt similar to when he had seizures in the past. He denies tongue biting but expresses urinary incontinence. Since waking up he has had a right-sided headache and intermittent sternal chest pain worse with palpation, patient describes a burning component to pain. Patient quit drinking alcohol cold turkey 1 week ago. He states he initially had tremors and has had intermittent nausea, vomiting, and diarrhea. Patient reports coffee-ground emesis and burning chest pain. Patient also complains of ankle swelling/pitting edema for the last 3 days. No complaints of orthopnea, PND, or abdominal distention. Patient has a previous history of seizures and was prescribed seizure medication after hospitalization in the past. As per medical record patient was admitted here in 2017 with acute alcohol withdrawal and alcohol withdrawal seizures. Patient has never had complete outpatient neurology evaluation to determine if he has primary seizure disorder. Patient does present to the ED with his belongings and states he is currently residing in a hotel. He smokes marijuana and cigarettes and denies hard-core drug use. Patient denies chest pain at this time. - Related Data Previous Rx's Medication Instructions Recorded Last Taken Type HYDROcodone/APAP 5-325 [[place] 2 each PO Q6H PRN #14 tablet 10/01/16 Unknown Rx 5-325 mg TAB] Nicotine [Habitrol] 21 mg TD Q24H #30 patch 10/01/16 Unknown Rx atenoloL [Tenormin] 25 mg PO QDAY #30 tablet 10/01/16 Unknown Rx traZODone [Desyrel] 50 mg PO QHS #30 tablet 10/01/16 Unknown Rx Ibuprofen [Motrin] 600 mg PO Q8H PRN #20 tablet 01/19/17 Unknown Rx cloNIDine [Catapres] 0.2 mg PO BID #20 tablet 01/19/17 Unknown Rx Folic Acid [Folvite] 1 mg PO QDAY #30 tablet 10/31/21 Unknown Rx Furosemide [Lasix TAB] 40 mg PO QDAY #5 tablet 10/31/21 Unknown Rx Potassium Chloride [K-Dur] 20 meq PO QDAY #5 tab 10/31/21 Unknown Rx Thiamine [Vitamin B-1] 100 mg PO QDAY #30 tablet 10/31/21 Unknown Rx levETIRAcetam [Keppra TAB] 500 mg PO BID #60 tablet 10/31/21 Unknown Rx Allergies Allergy/AdvReac Type Severity Reaction Status Date / Time No Known Allergies Allergy Verified 08/30/16 06:19 ED Review of Systems ROS: Stated complaint: SEIZURE,CHEST PAIN Other details as noted in HPI Comment: All other systems reviewed and negative ED Past Medical Hx - Past Medical History Previous Medical History?: Yes Hx Congestive Heart Failure: No Hx Diabetes: No Hx Seizures: Yes Hx Asthma: No Hx COPD: No Additional medical history: alcohol abuse - Surgical History Past Surgical History?: Yes Additional Surgical History: LEFT 5TH DIGIT - Social History Smoking Status: Unknown if ever smoked Substance Use Type: Alcohol, Marijuana - Medications Home Medications: Home Medications Medication Instructions Recorded Confirmed Last Taken Type HYDROcodone/APAP 5-325 [[place] 2 each PO Q6H PRN #14 tablet 10/01/16 Unknown Rx 5-325 mg TAB] Nicotine [Habitrol] 21 mg TD Q24H #30 patch 10/01/16 Unknown Rx atenoloL [Tenormin] 25 mg PO QDAY #30 tablet 10/01/16 Unknown Rx traZODone [Desyrel] 50 mg PO QHS #30 tablet 10/01/16 Unknown Rx Ibuprofen [Motrin] 600 mg PO Q8H PRN #20 tablet 01/19/17 Unknown Rx cloNIDine [Catapres] 0.2 mg PO BID #20 tablet 01/19/17 Unknown Rx Folic Acid [Folvite] 1 mg PO QDAY #30 tablet 10/31/21 Unknown Rx Furosemide [Lasix TAB] 40 mg PO QDAY #5 tablet 10/31/21 Unknown Rx Potassium Chloride [K-Dur] 20 meq PO QDAY #5 tab 10/31/21 Unknown Rx Thiamine [Vitamin B-1] 100 mg PO QDAY #30 tablet 10/31/21 Unknown Rx levETIRAcetam [Keppra TAB] 500 mg PO BID #60 tablet 10/31/21 Unknown Rx ED Physical Exam - General Limitations: No Limitations - Other Other exam information: General: No acute distress Head: Atraumatic Eyes: normal appearance ENT: Moist mucous membranes Neck: Normal appearance, no midline tenderness Chest: Clear to auscultation bilaterally CV: Regular rate and rhythm Abdomen: Soft, normal bowel sounds, nontender, nondistended, no rebound or guarding Rectal: Brown stool. No melena. No gross blood. Stool occult negative Back: Normal inspection Extremity: Normal inspection, bilateral pitting distal leg and pedal edema. No calf tenderness or leg asymmetry Neuro: Alert O x 3, no facial asymmetry, speech clear, no gross motor sensory deficit, no tremor Psych: Appropriate behavior Skin: No rash ED Course Vital Signs 10/31/21 10/31/21 10/31/21 14:34 19:45 20:00 Temperature 98.6 F 98.5 F Pulse Rate 88 70 69 Respiratory 18 21 16 Rate Blood Pressure 134/79 134/78 138/86 Blood Pressure 136/70 [Left] O2 Sat by Pulse 96 97 98 Oximetry 10/31/21 10/31/21 10/31/21 20:16 20:46 22:06 Temperature Pulse Rate 80 68 57 L Respiratory 25 H 22 24 Rate Blood Pressure 145/91 138/87 138/87 Blood Pressure [Left] O2 Sat by Pulse 97 97 99 Oximetry 10/31/21 10/31/21 10/31/21 22:30 22:46 23:00 Temperature Pulse Rate 56 L 55 L 61 Respiratory 20 23 20 Rate Blood Pressure 138/87 138/87 129/71 Blood Pressure [Left] O2 Sat by Pulse 100 97 95 Oximetry ED Medical Decision Making - Lab Data Result diagrams: 10/31/21 14:49 10/31/21 14:49 Lab Results 10/31/21 10/31/21 10/31/21 Range/Units 14:49 14:49 20:20 WBC 8.7 (4.5-11.0) K/mm3 RBC 2.93 L (3.65-5.03) M/mm3 Hgb 9.9 L (11.8-15.2) gm/dl Hct 30.5 L (35.5-45.6) % MCV 104 H (84-94) fl MCH 34 H (28-32) pg MCHC 33 (32-34) % RDW 15.1 (13.2-15.2) % Plt Count 371 (140-440) K/mm3 PT (12.2-14.9) Sec. INR (0.87-1.13) APTT (24.2-36.6) Sec. Sodium 143 (137-145) mmol/L Potassium 3.5 L (3.6-5.0) mmol/L Chloride 106.6 (98-107) mmol/L Carbon Dioxide 25 (22-30) mmol/L Anion Gap 15 mmol/L BUN 13 (9-20) mg/dL Creatinine 0.8 (0.8-1.3) mg/dL Estimated GFR > 60 ml/min BUN/Creatinine Ratio 16 % Glucose 91 (75-100) mg/dL Calcium 9.0 (8.4-10.2) mg/dL Magnesium (1.7-2.3) mg/dL Total Bilirubin 0.70 (0.1-1.2) mg/dL AST 64 H (5-40) units/L ALT 164 H (7-56) units/L Alkaline Phosphatase 65 (35-129) units/L Troponin T < 0.010 < 0.010 (0.00-0.029) ng/mL NT-Pro-B Natriuret Pep 664.5 H (0-450) pg/mL Total Protein 6.8 (6.3-8.2) g/dL Albumin 4.2 (3.9-5) g/dL Albumin/Globulin Ratio 1.6 % 10/31/21 10/31/21 Range/Units 20:20 Unknown WBC (4.5-11.0) K/mm3 RBC (3.65-5.03) M/mm3 Hgb (11.8-15.2) gm/dl Hct (35.5-45.6) % MCV (84-94) fl MCH (28-32) pg MCHC (32-34) % RDW (13.2-15.2) % Plt Count (140-440) K/mm3 PT 13.1 (12.2-14.9) Sec. INR 0.88 (0.87-1.13) APTT 27.8 (24.2-36.6) Sec. Sodium (137-145) mmol/L Potassium (3.6-5.0) mmol/L Chloride (98-107) mmol/L Carbon Dioxide (22-30) mmol/L Anion Gap mmol/L BUN (9-20) mg/dL Creatinine (0.8-1.3) mg/dL Estimated GFR ml/min BUN/Creatinine Ratio % Glucose (75-100) mg/dL Calcium (8.4-10.2) mg/dL Magnesium 1.80 (1.7-2.3) mg/dL Total Bilirubin (0.1-1.2) mg/dL AST (5-40) units/L ALT (7-56) units/L Alkaline Phosphatase (35-129) units/L Troponin T (0.00-0.029) ng/mL NT-Pro-B Natriuret Pep (0-450) pg/mL Total Protein (6.3-8.2) g/dL Albumin (3.9-5) g/dL Albumin/Globulin Ratio % - EKG Data -: EKG Interpreted by Hi EKG shows normal: sinus rhythm, ST-T waves (no stemi) Rate: normal - EKG Data When compared to previous EKG there are: no significant change - Radiology Data Radiology results: report reviewed CHEST 2 VIEWS INDICATION / CLINICAL INFORMATION: chest pain. COMPARISON: 09/21/2016 FINDINGS: SUPPORT DEVICES: None. HEART / MEDIASTINUM: No significant abnormality. LUNGS / PLEURA: No significant pulmonary or pleural abnormality. No pneumothorax. ADDITIONAL FINDINGS: No significant additional findings. IMPRESSION: 1. No acute findings. No interval change. DOPPLER B/L LEG: no signs of DVT - Medical Decision Making 36 yo male with history of alcohol abuse and seizures presents to the hospital with procedure. Also suspect that patient is having some symptoms of alcohol withdrawal including nausea and vomiting. Patient CIWA score is currently 1. CT head, chest x-ray, and bilateral leg Dopplers were unremarkable. Patient does have new lower extremity edema with unclear etiology. Patient does have mild LFT elevation without hypoalbuminemia. Renal function is normal. No signs of CHF on chest x-ray. Patient does have mild elevation of BNP. Patient provided IV Lasix and Keppra in the ED. P.o. potassium provided to prevent worsening hypokalemia. Patient experiencing atypical chest pain with a heart score of 1 and troponin negative x2. No signs of ischemia on EKG. I suspect pain may be GI in origin given recent nausea vomiting with burning chest pain. No signs of acute GI bleed in the ED. Negative stool guaiac. Patient will be discharged home with Lasix, Keppra, and potassium. Outpatient follow-up with PMD for further outpatient evaluation will be advised. Critical Care Time: No Critical care attestation.: If time is entered above; I have spent that time in minutes in the direct care of this critically ill patient, excluding procedure time. ED Disposition Clinical Impression: Seizure, History of alcohol abuse, Lower extremity edema Disposition: HOME / SELF CARE / HOMELESS Is pt being admited?: No Does the pt Need Aspirin: No Condition: Stable Instructions: Alcohol Use Disorder, Seizure, Adult, [id number], Edema Additional Instructions: Take the medication as prescribed. Follow-up with your doctor or doctor/clinic provided. Return if symptoms worsen as indicated by your discharge instructions. Prescriptions: Folic Acid [Folvite] 1 mg PO QDAY #30 tablet Potassium Chloride [K-Dur] 20 meq PO QDAY #5 tab levETIRAcetam [Keppra TAB] 500 mg PO BID #60 tablet Furosemide [Lasix TAB] 40 mg PO QDAY #5 tablet Thiamine [Vitamin B-1] 100 mg PO QDAY #30 tablet Referrals: PAUL ECHEVERRIA MD [Staff Physician] - 3-5 Days (Primary care doctor) [facility] [Provider Group] - 3-5 Days (Primary care clinic) AVELINA ZHU MD [Staff Physician] - 3-5 Days (Neurology) Time of Disposition: 23:32 Heart Score - HEART Score History: Slightly suspicious EKG: Normal Age: < 45 Risk factors: 1-2 risk factors Troponin: < normal limit HEART Score: 1 - EKG Read Time Time EKG Completed: 14:43 EKG Read Time: 14:47
[2021-10-31 20:45] LABS: INR 0.88 (0.87-1.13)
[2021-10-31 20:46] LABS: Partial Thromboplastin Time 27.8 Sec. (24.2-36.6)
--- NOTE | 2021-10-31 21:28 | Vascular Lab Report ---
DUPLEX DOPPLER LOWER EXTREMITY VEINS, BILATERAL INDICATION / CLINICAL INFORMATION: New onset bilateral leg edema. TECHNIQUE: Duplex doppler imaging was performed through the veins of both lower extremities using gabriella ous compression and other maneuvers. COMPARISON: None available. FINDINGS: RIGHT COMMON FEMORAL VEIN: Negative. RIGHT FEMORAL VEIN: Negative. RIGHT POPLITEAL VEIN: Negative. RIGHT CALF VEINS: Negative. LEFT COMMON FEMORAL VEIN: Negative. LEFT FEMORAL VEIN: Negative. LEFT POPLITEAL VEIN: Negative. LEFT CALF VEINS: Negative. ADDITIONAL FINDINGS: None. IMPRESSION: 1. No sonographic evidence for DVT in either lower extremity. Signer Name: Dipesh Wilcox MD Signed: 10/31/2021 9:24 PM Workstation Name: [id number]
--- NOTE | 2021-10-31 22:16 | Cat Scan Report ---
CT HEAD WITHOUT CONTRAST INDICATION / CLINICAL INFORMATION: richardson, seizure. TECHNIQUE: All CT scans at this location are performed using CT dose reduction for ALARA by means of automated e xposure control. COMPARISON: Prior study dated 09/21/2016 could not be retrieved for comparison at the time of this report. FINDINGS: HEMORRHAGE: No evidence of intracranial hemorrhage or extra-axial fluid collection. EXTRA-AXIAL SPACES: Cortical sulci, sylvian fissures and basilar cisterns have an unremarkable appear ance. VENTRICULAR SYSTEM: The third and lateral ventricles are of normal size and configuration. CEREBRAL PARENCHYMA: No areas of abnormal brain parenchymal attenuation are identified. There is no i ndication of recent infarction. MIDLINE SHIFT OR HERNIATION: There is no mass effect. CEREBELLUM / BRAINSTEM: Brainstem and cerebellum have an unremarkable appearance. MIDLINE STRUCTURES:No abnormalities of the pituitary gland or pineal region are identified. INTRACRANIAL VESSELS:No abnormalities are identified on this noncontrast head CT. ORBITS: visualized portions of the orbits have an unremarkable appearance. SOFT TISSUES of HEAD: No significant abnormality. CALVARIUM: Evaluation of bone windows reveals no abnormalities. PARANASAL SINUSES / MASTOID AIR CELLS: Visualized portions of the paranasal sinuses are free from inf lammatory mucosal disease. Mastoid air cells are normally pneumatized. IMPRESSION: 1. Normal head CT without contrast. Signer Name: Leighton Estevez MD Signed: 10/31/2021 10:12 PM Workstation Name: [id number]
[2021-11-01 00:55] VITALS: BP 128/83
--- NOTE | 2021-11-02 13:08 | Electrocardiograph Report ---
[facility] Test Date: 2021-10-31 Test Time: 14:43:37 Pat Name: ROSHAN POOLE Department: Room: Gender: M Field Identification Specialist: MARKUS : 1985 Requested By: AKIRA MCKEON Order Number: [id number] Reading MD: Otf Tran Measurements Intervals [place] Rate: 82 P: 64 [place]: 180 QRS: 66 QRSD: 91 T: 44 QT: 379 QTc: 443 Interpretive Statements Sinus rhythm No previous ECG available for comparison Electronically Signed On 11-02-2021 13:07:45 EDT by Otf Tran
== END 2021-10-31 23:50 | disposition home or self-care (01) ==
LOC: ED 14:30
DX: R56.9 Unspecified convulsions (principal); F10.10 Alcohol abuse, uncomplicated; R60.0 Localized edema; Z98.890 Other specified postprocedural states
CPT/HCPCS: 36415; 70450; 71046; 80053; 82270; 83735; 83880; 84484; 85027; 85610; 85730; 93005; 93970; 96361; 96365; 96375; 99284; J1940; J1953; J3490

== ENCOUNTER 2022-01-19 08:46 | Emergency (ER) | payer SELFPAY ==
[2022-01-19 09:43] LABS: Amphetamine Screen,Urine Negative; Benzodiazepines Screen,Urine Negative; Cocaine Screen,Urine Negative; Methadone Screen,Urine Negative; Opiate Screen,Urine Negative
[2022-01-19 09:45] LABS: Basophils % (Auto) 1.1 % (0.0-1.8); Eosinophils # (Auto) 0.1 K/mm3 (0.0-0.4); Eosinophils % (Auto) 1.4 % (0.0-4.3); Hematocrit 40.1 % (35.5-45.6); Hemoglobin 13.9 gm/dl (11.8-15.2); Lymphocytes # (Auto) 1.5 K/mm3 (1.2-5.4); Lymphocytes % (Auto) 34.1 % (13.4-35.0); Mean Corpuscular HGB Conc 35 % (32-34); Mean Corpuscular Volume 94 fl (84-94); Monocytes # (Auto) 0.3 K/mm3 (0.0-0.8); Monocytes % (Auto) 7.3 % (0.0-7.3); Platelet Count 215 K/mm3 (140-440); Red Blood Count 4.29 M/mm3 (3.65-5.03); Red Cell Distribution Width 13.1 % (13.2-15.2)
[2022-01-19 09:50] LABS: RBC,Urine < 1.0 /HPF (0.0-6.0)
[2022-01-19 10:03] LABS: Blood Urea Nitrogen 9 mg/dL (9-20); Calcium 8.8 mg/dL (8.4-10.2); Hemolysis Index 7
[2022-01-19 10:11] LABS: BUN/Creatinine Ratio 15
[2022-01-19 10:11] LABS: Cannabinoid Screen,Urine Positive
[2022-01-19 10:13] LABS: Color,Urine Yellow (Yellow)
[2022-01-19 10:21] LABS: Ictotest,Urine Negative (Negative)
--- NOTE | 2022-01-19 12:24 | Emergency Department Report ---
ED General Adult HPI - General Chief complaint: Psych Stated complaint: SI Time Seen by Provider: 01/19/22 11:10 Source: patient Mode of arrival: Ambulatory Limitations: No Limitations - History of Present Illness Initial comments: The patient presents to the emergency department with a chief complaint of suicidal ideations. Patient states that this has been present over the last couple of days and is becoming progressively worse. Patient states his plan would be to shoot himself. He does have access to a firearm. -: unknown Severity scale (0 -10): 0 Consistency: constant Improves with: none Worsens with: none Associated Symptoms: denies other symptoms Treatments Prior to Arrival: none - Related Data Previous Rx's Medication Instructions Recorded Last Taken Type HYDROcodone/APAP 5-325 [[place] 2 each PO Q6H PRN #14 tablet 10/01/16 Unknown Rx 5-325 mg TAB] Nicotine [Habitrol] 21 mg TD Q24H #30 patch 10/01/16 Unknown Rx atenoloL [Tenormin] 25 mg PO QDAY #30 tablet 10/01/16 Unknown Rx traZODone [Desyrel] 50 mg PO QHS #30 tablet 10/01/16 Unknown Rx Ibuprofen [Motrin] 600 mg PO Q8H PRN #20 tablet 01/19/17 Unknown Rx cloNIDine [Catapres] 0.2 mg PO BID #20 tablet 01/19/17 Unknown Rx Folic Acid [Folvite] 1 mg PO QDAY #30 tablet 10/31/21 Unknown Rx Furosemide [Lasix TAB] 40 mg PO QDAY #5 tablet 10/31/21 Unknown Rx Potassium Chloride [K-Dur] 20 meq PO QDAY #5 tab 10/31/21 Unknown Rx Thiamine [Vitamin B-1] 100 mg PO QDAY #30 tablet 10/31/21 Unknown Rx levETIRAcetam [Keppra TAB] 500 mg PO BID #60 tablet 10/31/21 Unknown Rx Allergies Allergy/AdvReac Type Severity Reaction Status Date / Time No Known Allergies Allergy Verified 08/30/16 06:19 ED Review of Systems ROS: Stated complaint: SI Other details as noted in HPI Comment: All other systems reviewed and negative Constitutional: denies: chills, fever Eyes: denies: eye pain, eye discharge, vision change ENT: denies: ear pain, throat pain Respiratory: denies: cough, shortness of breath, wheezing Cardiovascular: denies: chest pain, palpitations Endocrine: no symptoms reported Gastrointestinal: denies: abdominal pain, nausea, diarrhea Genitourinary: denies: urgency, dysuria Musculoskeletal: denies: back pain, joint swelling, arthralgia Skin: denies: rash, lesions Neurological: denies: headache, weakness, paresthesias Psychiatric: suicidal thoughts. denies: anxiety, depression, auditory hallucinations, visual hallucinations, homicidal thoughts Hematological/Lymphatic: denies: easy bleeding, easy bruising ED Past Medical Hx - Past Medical History Hx Congestive Heart Failure: No Hx Diabetes: No Hx Seizures: Yes Hx Asthma: No Hx COPD: No Additional medical history: alcohol abuse - Surgical History Additional Surgical History: LEFT 5TH DIGIT - Social History Smoking Status: Unknown if ever smoked Substance Use Type: Alcohol, Marijuana - Medications Home Medications: Home Medications Medication Instructions Recorded Confirmed Last Taken Type HYDROcodone/APAP 5-325 [[place] 2 each PO Q6H PRN #14 tablet 10/01/16 Unknown Rx 5-325 mg TAB] Nicotine [Habitrol] 21 mg TD Q24H #30 patch 10/01/16 Unknown Rx atenoloL [Tenormin] 25 mg PO QDAY #30 tablet 10/01/16 Unknown Rx traZODone [Desyrel] 50 mg PO QHS #30 tablet 10/01/16 Unknown Rx Ibuprofen [Motrin] 600 mg PO Q8H PRN #20 tablet 01/19/17 Unknown Rx cloNIDine [Catapres] 0.2 mg PO BID #20 tablet 01/19/17 Unknown Rx Folic Acid [Folvite] 1 mg PO QDAY #30 tablet 10/31/21 Unknown Rx Furosemide [Lasix TAB] 40 mg PO QDAY #5 tablet 10/31/21 Unknown Rx Potassium Chloride [K-Dur] 20 meq PO QDAY #5 tab 10/31/21 Unknown Rx Thiamine [Vitamin B-1] 100 mg PO QDAY #30 tablet 10/31/21 Unknown Rx levETIRAcetam [Keppra TAB] 500 mg PO BID #60 tablet 10/31/21 Unknown Rx ED Physical Exam - General Limitations: No Limitations General appearance: alert, in no apparent distress - Head Head exam: Present: atraumatic, normocephalic - Eye Eye exam: Present: normal appearance, PERRL, EOMI Pupils: Present: normal accommodation - ENT ENT exam: Present: mucous membranes moist - Neck Neck exam: Present: normal inspection - Respiratory Respiratory exam: Present: normal lung sounds bilaterally. Absent: respiratory distress - Cardiovascular Cardiovascular Exam: Present: normal rhythm, tachycardia. Absent: systolic murmur, diastolic murmur, rubs, gallop - GI/Abdominal GI/Abdominal exam: Present: soft, normal bowel sounds. Absent: distended, tenderness - Rectal Rectal exam: Present: deferred - Extremities Exam Extremities exam: Present: normal inspection - Back Exam Back exam: Present: normal inspection - Neurological Exam Neurological exam: Present: alert, oriented X3, CN II-XII intact. Absent: motor sensory deficit - Psychiatric Psychiatric exam: Present: normal affect, normal mood, suicidal ideation - Skin Skin exam: Present: warm, dry, intact, normal color. Absent: rash ED Course Vital Signs 01/19/22 01/19/22 01/19/22 08:58 16:34 17:48 Temperature 97.9 F Pulse Rate 110 H 96 H Respiratory 14 18 Rate Blood Pressure 151/100 113/84 [Right] O2 Sat by Pulse 99 98 97 Oximetry ED Medical Decision Making - Lab Data Result diagrams: 01/19/22 09:34 01/19/22 09:34 Lab Results 01/19/22 01/19/22 01/19/22 Range/Units 09:34 09:34 09:34 WBC (4.5-11.0) K/mm3 RBC (3.65-5.03) M/mm3 Hgb (11.8-15.2) gm/dl Hct (35.5-45.6) % MCV (84-94) fl MCH (28-32) pg MCHC (32-34) % RDW (13.2-15.2) % Plt Count (140-440) K/mm3 Lymph % (Auto) (13.4-35.0) % [place] % (Auto) (0.0-7.3) % Eos % (Auto) (0.0-4.3) % Baso % (Auto) (0.0-1.8) % Lymph # (Auto) (1.2-5.4) K/mm3 [place] # (Auto) (0.0-0.8) K/mm3 Eos # (Auto) (0.0-0.4) K/mm3 Baso # (Auto) (0.0-0.1) K/mm3 Seg Neutrophils % (40.0-70.0) % Seg Neutrophils # (1.8-7.7) K/mm3 Sodium 146 H (137-145) mmol/L Potassium 3.9 (3.6-5.0) mmol/L Chloride 100.8 (98-107) mmol/L Carbon Dioxide 26 (22-30) mmol/L Anion Gap 23 mmol/L BUN 9 (9-20) mg/dL Creatinine 0.6 L (0.8-1.3) mg/dL Estimated GFR > 60 ml/min BUN/Creatinine Ratio 15 % Glucose 84 (75-100) mg/dL Calcium 8.8 (8.4-10.2) mg/dL Urine Color (Yellow) Urine Turbidity (Clear) Specific [place] (Man) (1.003-1.030) Ur Protein (Man) (Negative) mg/dL Ur Ketones (Man) (Negative) Ur Nitrite (Man) (Negative) Ur Reducing Substances Urine Bilirubin (Man) (Negative) Urine Ictotest (Negative) Leukocyte Esterase (Man) (Negative) Urine WBC (Auto) (0.0-6.0) /HPF Urine RBC (Auto) (0.0-6.0) /HPF Urine RBC (Manual) (Negative) Salicylates < 0.3 L (2.8-20.0) mg/dL Urine Opiates Screen Urine Methadone Screen Acetaminophen 5.0 L (10.0-30.0) ug/mL Ur Barbiturates Screen Ur Phencyclidine Scrn Ur Amphetamines Screen U Benzodiazepines Scrn Urine Cocaine Screen U Marijuana (THC) Screen Drugs of Abuse Note Plasma/Serum Alcohol (0-0.07) % SARS-CoV-2 (PCR) (Negative) 01/19/22 01/19/22 01/19/22 Range/Units 09:34 09:34 14:10 WBC 4.4 L (4.5-11.0) K/mm3 RBC 4.29 (3.65-5.03) M/mm3 Hgb 13.9 (11.8-15.2) gm/dl Hct 40.1 (35.5-45.6) % MCV 94 (84-94) fl MCH 32 (28-32) pg MCHC 35 H (32-34) % RDW 13.1 L (13.2-15.2) % Plt Count 215 (140-440) K/mm3 Lymph % (Auto) 34.1 (13.4-35.0) % [place] % (Auto) 7.3 (0.0-7.3) % Eos % (Auto) 1.4 (0.0-4.3) % Baso % (Auto) 1.1 (0.0-1.8) % Lymph # (Auto) 1.5 (1.2-5.4) K/mm3 [place] # (Auto) 0.3 (0.0-0.8) K/mm3 Eos # (Auto) 0.1 (0.0-0.4) K/mm3 Baso # (Auto) 0.0 (0.0-0.1) K/mm3 Seg Neutrophils % 56.1 (40.0-70.0) % Seg Neutrophils # 2.4 (1.8-7.7) K/mm3 Sodium (137-145) mmol/L Potassium (3.6-5.0) mmol/L Chloride (98-107) mmol/L Carbon Dioxide (22-30) mmol/L Anion Gap mmol/L BUN (9-20) mg/dL Creatinine (0.8-1.3) mg/dL Estimated GFR ml/min BUN/Creatinine Ratio % Glucose (75-100) mg/dL Calcium (8.4-10.2) mg/dL Urine Color (Yellow) Urine Turbidity (Clear) Specific [place] (Man) (1.003-1.030) Ur Protein (Man) (Negative) mg/dL Ur Ketones (Man) (Negative) Ur Nitrite (Man) (Negative) Ur Reducing Substances Urine Bilirubin (Man) (Negative) Urine Ictotest (Negative) Leukocyte Esterase (Man) (Negative) Urine WBC (Auto) (0.0-6.0) /HPF Urine RBC (Auto) (0.0-6.0) /HPF Urine RBC (Manual) (Negative) Salicylates (2.8-20.0) mg/dL Urine Opiates Screen Urine Methadone Screen Acetaminophen (10.0-30.0) ug/mL Ur Barbiturates Screen Ur Phencyclidine Scrn Ur Amphetamines Screen U Benzodiazepines Scrn Urine Cocaine Screen U Marijuana (THC) Screen Drugs of Abuse Note Plasma/Serum Alcohol 0.36 H (0-0.07) % SARS-CoV-2 (PCR) Negative (Negative) 01/19/22 01/19/22 Range/Units Unknown Unknown WBC (4.5-11.0) K/mm3 RBC (3.65-5.03) M/mm3 Hgb (11.8-15.2) gm/dl Hct (35.5-45.6) % MCV (84-94) fl MCH (28-32) pg MCHC (32-34) % RDW (13.2-15.2) % Plt Count (140-440) K/mm3 Lymph % (Auto) (13.4-35.0) % [place] % (Auto) (0.0-7.3) % Eos % (Auto) (0.0-4.3) % Baso % (Auto) (0.0-1.8) % Lymph # (Auto) (1.2-5.4) K/mm3 [place] # (Auto) (0.0-0.8) K/mm3 Eos # (Auto) (0.0-0.4) K/mm3 Baso # (Auto) (0.0-0.1) K/mm3 Seg Neutrophils % (40.0-70.0) % Seg Neutrophils # (1.8-7.7) K/mm3 Sodium (137-145) mmol/L Potassium (3.6-5.0) mmol/L Chloride (98-107) mmol/L Carbon Dioxide (22-30) mmol/L Anion Gap mmol/L BUN (9-20) mg/dL Creatinine (0.8-1.3) mg/dL Estimated GFR ml/min BUN/Creatinine Ratio % Glucose (75-100) mg/dL Calcium (8.4-10.2) mg/dL Urine Color Yellow (Yellow) Urine Turbidity Clear (Clear) Specific [place] (Man) 1.010 (1.003-1.030) Ur Protein (Man) 1+ (Negative) mg/dL Ur Ketones (Man) 1+ (Negative) Ur Nitrite (Man) Negative (Negative) Ur Reducing Substances Not Reportable Urine Bilirubin (Man) Small (Negative) Urine Ictotest Negative (Negative) Leukocyte Esterase (Man) Negative (Negative) Urine WBC (Auto) 1.0 (0.0-6.0) /HPF Urine RBC (Auto) < 1.0 (0.0-6.0) /HPF Urine RBC (Manual) 2+ (Negative) Salicylates (2.8-20.0) mg/dL Urine Opiates Screen Negative Urine Methadone Screen Negative Acetaminophen (10.0-30.0) ug/mL Ur Barbiturates Screen Negative Ur Phencyclidine Scrn Negative Ur Amphetamines Screen Negative U Benzodiazepines Scrn Negative Urine Cocaine Screen Negative U Marijuana (THC) Screen Positive Drugs of Abuse Note Disclamer Plasma/Serum Alcohol (0-0.07) % SARS-CoV-2 (PCR) (Negative) - Medical Decision Making 1013 applied ED hold applied Mental health evaluation done Mental health assessment done and suggest inpatient services Critical care attestation.: If time is entered above; I have spent that time in minutes in the direct care of this critically ill patient, excluding procedure time. ED Disposition Clinical Impression: Suicidal ideation Disposition: [address] [place] [address] Is pt being admited?: No Does the pt Need Aspirin: No Condition: Stable Referrals: KI ACUNA MD [Primary Care Provider] - 3-5 Days
--- NOTE | 2022-01-19 15:26 | Consultation ---
History of Present Illness - Reason for Consult Consult date: 01/19/22 Reason for consult: mental health evaluation - Chief Complaint Chief complaint: suicidal ideation - History of Present Psychiatric Illness ED NOTE: The patient presents to the emergency department with a chief complaint of suicidal ideations. Patient states that this has been present over the last couple of days and is becoming progressively worse. Patient states his plan would be to shoot himself. He does have access to a firearm. Patient is a 36 year-old male without previous psychiatric diagnoses or psych medication use who presents to ED with complaint of suicidal ideation. Patient was alert and oriented x3 and cooperative throughout the interview. Patient reports coming to ER "to get help" for seizures and "feeling I just want to get it over with." Patient reports depressed mood with suicidal ideation with intent and plan for the last month. Patient reports putting his gun to his head last night. and has considered taking pills, hanging, or shooting himself. Patient reports stressor of having "seizures" for years without evaluation by neurology and without satisfying explanation or effective treatment from outpatient facilities. Patient reports having two seizures in the last week where "something goes off in my head," and "I feel like my body isn't right," and "I feel real shakey." Patient denies pattern or emotional involvement to seizures. Patient reports history of alcohol use only, 4-5 beers at a time, but patient reports reducing alcohol intake in the last month without improvement in seizure frequency. Patient reports poor social support. Patient is open to medication and counseling at this time. Patient denies history of manic symptoms. Denies HI and AVH. PAST PSYCHIATRIC HISTORY: Diagnoses: denies Suicide attempts or Self-harm behavior: Never Prior psychiatric hospitalizations: Denies Substance Abuse history: Alcohol Previous psychiatric medications tried: denies Outpatient treatment: denies PAST MEDICAL HISTORY: seizures Family Psychiatric History: denies SOCIAL HISTORY Marital Status: single Living Arrangements: with mom Employment Status: employed Access to guns/weapons: yes Education: 12th grade History of Abuse: denies Legal History: denies REVIEW OF SYSTEMS Constitutional: Negative for weight loss ENT: Negative for stridor Respiratory: Negative for cough or hemoptysis All other systems reviewed and are negative MENTAL STATUS EXAMINATION General Appearance and Behavior: Age appropriate, wearing appropriate clothes, polite with questioning, poor eye contact Cooperation: cooperative Psychomotor Behavior: Psychomotor slowed Mood: depressed Affect and affective range: congruent with stated affect, tearful Thought Process: goal-oriented Thought Content: reality-based Speech: Low volume, slow rate and regular rhythm Suicidal Ideation: Yes Homicidal Ideation: Denies Hallucination: Denies Delusions: Denies Impulse Control: Poor Insight and Judgment: Poor Memory: Intact Attention: Attentive Orientation: Alert and oriented Diagnoses: Major depressive disorder Treatment Plan Prozac 20 mg qd Melatonin 5 mg qhs Trazodone 50 mg qhs PRN Vistaril 25 mg q6h PRN for anxiety PSYCHOTHERAPY: Supportive psychotherapy provided MEDICAL: Per primary team DATA SPECIALIST: Defer to primary DISPOSITION: Recommend acute inpatient psychiatric hospitalization at this time. FOLLOW-UP: Will follow. Thank you for the consult. Please contact with any questions and/or concerns. Case staffed with Dr. Cami Davis. Medications and Allergies Allergies Allergy/AdvReac Type Severity Reaction Status Date / Time No Known Allergies Allergy Verified 08/30/16 06:19 Home Medications Medication Instructions Recorded Confirmed Last Taken Type HYDROcodone/APAP 5-325 [[place] 2 each PO Q6H PRN #14 tablet 10/01/16 Unknown Rx 5-325 mg TAB] Nicotine [Habitrol] 21 mg TD Q24H #30 patch 10/01/16 Unknown Rx atenoloL [Tenormin] 25 mg PO QDAY #30 tablet 10/01/16 Unknown Rx traZODone [Desyrel] 50 mg PO QHS #30 tablet 10/01/16 Unknown Rx Ibuprofen [Motrin] 600 mg PO Q8H PRN #20 tablet 01/19/17 Unknown Rx cloNIDine [Catapres] 0.2 mg PO BID #20 tablet 01/19/17 Unknown Rx Folic Acid [Folvite] 1 mg PO QDAY #30 tablet 10/31/21 Unknown Rx Furosemide [Lasix TAB] 40 mg PO QDAY #5 tablet 10/31/21 Unknown Rx Potassium Chloride [K-Dur] 20 meq PO QDAY #5 tab 10/31/21 Unknown Rx Thiamine [Vitamin B-1] 100 mg PO QDAY #30 tablet 10/31/21 Unknown Rx levETIRAcetam [Keppra TAB] 500 mg PO BID #60 tablet 10/31/21 Unknown Rx Mental Status Exam - Vital signs Last Vital Signs Temp 97.9 F 01/19/22 08:58 Pulse 110 H 01/19/22 08:58 Resp 14 01/19/22 08:58 BP 151/100 01/19/22 08:58 Pulse Ox 99 01/19/22 08:58 Results Result Diagrams: 01/19/22 09:34 01/19/22 09:34 Abnormal lab results 01/19/22 01/19/22 01/19/22 Range/Units 09:34 09:34 09:34 WBC (4.5-11.0) K/mm3 MCHC (32-34) % RDW (13.2-15.2) % Sodium 146 H (137-145) mmol/L Creatinine 0.6 L (0.8-1.3) mg/dL Salicylates < 0.3 L (2.8-20.0) mg/dL Acetaminophen 5.0 L (10.0-30.0) ug/mL Plasma/Serum Alcohol (0-0.07) % 01/19/22 01/19/22 Range/Units 09:34 09:34 WBC 4.4 L (4.5-11.0) K/mm3 MCHC 35 H (32-34) % RDW 13.1 L (13.2-15.2) % Sodium (137-145) mmol/L Creatinine (0.8-1.3) mg/dL Salicylates (2.8-20.0) mg/dL Acetaminophen (10.0-30.0) ug/mL Plasma/Serum Alcohol 0.36 H (0-0.07) % All other labs normal.
[2022-01-19] MEDS ORDERED: traZODone 50 MG TAB PO PRN (19:37)
[2022-01-19] MEDS ORDERED: MELATONIN 5 MG TAB PO PRN (19:37)
[2022-01-19] MEDS ORDERED: ESCITALOPRAM 10 MG TAB PO SCH (20:00)
--- NOTE | 2022-01-20 08:50 | Emergency Department Report ---
Blank Doc - Documentation Documentation: 36yo M p/w suicidal ideation. No overnight events per review of EHR. VSS He continues to remain a 1013 psychiatric hold. The pt is awaiting formal disposition by psychiatry.
[2022-01-20 10:37] LABS: Blood Urea Nitrogen 12 mg/dL (9-20); Calcium 8.8 mg/dL (8.4-10.2); Hemolysis Index 1
[2022-01-20 10:44] LABS: BUN/Creatinine Ratio 17
--- NOTE | 2022-01-20 14:19 | Progress Note ---
Subjective - Reason for Consult Consult date: 01/20/22 Reason for consult: mental health evaluation - Chief Complaint Chief complaint: 01/21: Patient seen today. Patient reports feeling terrible due to poor sleep from racing thoughts. Patient continues to endorse depressed mood and suicidal ideation with plan. Patient reports feeling anxious. Patient reports vomiting overnight. 01/20: Patient is a 36 year-old male without previous psychiatric diagnoses or psych medication use who presents to ED with complaint of suicidal ideation. Patient was alert and oriented x3 and cooperative throughout the interview. Patient reports coming to ER "to get help" for seizures and "feeling I just want to get it over with." Patient reports depressed mood with suicidal ideation with intent and plan for the last month. Patient reports putting his gun to his head last night. and has considered taking pills, hanging, or shooting himself. Patient reports stressor of having "seizures" for years without evaluation by neurology and without satisfying explanation or effective treatment from outpatient facilities. Patient reports having two seizures in the last week where "something goes off in my head," and "I feel like my body isn't right," and "I feel real shakey." Patient denies pattern or emotional involvement to seizures. Patient reports history of alcohol use only, 4-5 beers at a time, but patient reports reducing alcohol intake in the last month without improvement in seizure frequency. Patient reports poor social support. Patient is open to medication and counseling at this time. Patient denies history of manic symptoms. Denies HI and AVH. MENTAL STATUS EXAMINATION General Appearance and Behavior: Age appropriate, wearing appropriate clothes, polite with questioning, poor eye contact Cooperation: cooperative Psychomotor Behavior: Psychomotor slowed Mood: depressed Affect and affective range: congruent with stated affect, tearful Thought Process: goal-oriented Thought Content: reality-based Speech: Low volume, slow rate and regular rhythm Suicidal Ideation: Yes Homicidal Ideation: Denies Hallucination: Denies Delusions: Denies Impulse Control: Poor Insight and Judgment: Poor Memory: Intact Attention: Attentive Orientation: Alert and oriented Diagnoses: Major depressive disorder Treatment Plan 1013 Lexapro 10 mg qd Melatonin 5 mg qhs Trazodone 50 mg qhs PRN Ordered Vistaril 25 mg q6h for anxiety PSYCHOTHERAPY: Supportive psychotherapy provided MEDICAL: Per primary team DIRECT CARE PROFESSIONAL: Defer to primary DISPOSITION: Recommend acute inpatient psychiatric hospitalization at this time. FOLLOW-UP: Will follow. Thank you for the consult. Please contact with any questions and/or concerns. Case staffed with Dr. Cami Davis. Mental Status Exam - Vital signs Last Vital Signs Temp 98.1 F 01/20/22 09:12 Pulse 78 01/20/22 09:12 Resp 16 01/20/22 09:12 BP 134/96 01/20/22 09:12 Pulse Ox 98 01/20/22 09:13
[2022-01-20] MEDS ORDERED: traZODone 50 MG TAB PO PRN (15:23)
[2022-01-20] MEDS: hydrOXYzine PAMOATE 25 MG CAP PO SCH ×2 (16:29→23:00)
[2022-01-20 21:49] VITALS: BP 138/99
[2022-01-20] MEDS ORDERED: MELATONIN 5 MG TAB PO SCH (22:00)
== END 2022-01-21 00:15 ==
LOC: ED 08:46
DX: R45.851 Suicidal ideations (principal); Z20.822 Contact with and (suspected) exposure to COVID-19; F12.90 Cannabis use, unspecified, uncomplicated; Z72.89 Other problems related to lifestyle; Z79.899 Other long term (current) drug therapy
CPT/HCPCS: 36415; 80048; 80307; 81001; 85025; 99285; U0003; 80320; G0480